=== PATIENT | female | born 1940 | race Caucasian/White ===

== ENCOUNTER 2019-04-06 00:15 | Day surgery (SDC) | payer MEDICARE, SELFPAY ==
[2019-03-20 10:42] VITALS: BMI 28.8
--- NOTE | 2019-04-06 07:23 | WPDHPUPDATE1 ---
History and Physical Update Update Date/Time: 04/06/19 07:23 History and Physical has been reviewed, including an updated exam of the patient. There are NO changes in the patient's condition. Risks, benefits, and alternatives have been discussed and questions answered. Patient agrees to proceed with procedure.
[2019-04-06 07:51] VITALS: BP 161/93; PULSE 91; RESP 20; TEMP 36.8; O2SAT 98
[2019-04-06] MEDS: LACTATED RINGERS 1,000 ML 30 ML IV CONT (08:05)
--- NOTE | 2019-04-06 08:28 | WPDANESEPPF ---
Anes - Initial Pre Proc Eval Procedure: Operation Date: 04/06/19 07:30 Proposed Procedures p Cystoscopy Bladder Biopsy With Steroid Injection - John Delarosa MD Date/Time: 04/06/19 08:28 Surgeon: John Delarosa MD Pre Op Diagnosis: Hunner's Ulcer Patient Data Age: 78 Gender: F Height: 1.63 m Weight: 76.2 kg Allergies Allergy/AdvReac Type Severity Reaction Status Date / Time sulfamethoxazole Allergy Unknown HIVES Verified 03/20/19 10:36 trimethoprim Allergy Unknown HIVES Verified 03/20/19 10:36 Home Medications Medication Instructions Recorded Confirmed Type Lactobacillus acidophilus 2,000 mmu cells PO BID 03/20/19 03/20/19 History amlodipine 5 mg PO DAILY 03/20/19 03/20/19 History apixaban [Eliquis] 5 mg PO DAILY 03/20/19 03/20/19 History bisoprolol-hydrochlorothiazide 1 tablet PO DAILY 03/20/19 03/20/19 History cholecalciferol (vitamin D3) 50 mcg PO DAILY 03/20/19 03/20/19 History [Vitamin D3] fluticasone propionate [Flonase 1 spray INTRANASAL DAILY 03/20/19 03/20/19 History Allergy Relief] hydrochlorothiazide 12.5 mg PO DAILY 03/20/19 03/20/19 History hydrocortisone 20 mg PO DAILY 03/20/19 03/20/19 History omega-3 fatty acids 1,000 mg PO DAILY 03/20/19 03/20/19 History omeprazole 40 mg PO DAILY 03/20/19 03/20/19 History simvastatin 20 mg PO DAILY 03/20/19 03/20/19 History Patient hx anesthesia problems: none Family hx anesthesia problems: none PMFSH Past Medical History Medical History (Updated 04/06/19 @ 08:28 by Que Bryant DO) Adrenal insufficiency Anticoagulant long-term use Chronic steroid use GERD (gastroesophageal reflux disease) History of lung cancer Hyperlipidemia Hypertension ARDEN (obstructive sleep apnea) Pulmonary embolism Surgical History Surgical History (Updated 04/05/19 @ 08:10 by Que Bryant DO) History of lobectomy of lung right middle lobe Social History Social History Gender identity (if verbalized by the patient): Female Anes - Eval Final PreProcedure Day of Procedure 04/06/19 08:28 Patient weight: overweight Heart: regular rate and rhythm Lungs: clear to auscultation and normal air movement Airway: Mallampati scale class II Neurological: alert and oriented Last oral intake: >/= 8 hours ASA classification: III Emergent: no Anesthetic plan: proceed Anesthesia type and monitoring: general GIVS and standard monitoring Informed Consent: The patient's anesthetic plan and its attendant risks and benefits were discussed with the patient/family/POA. Questions were solicited and answers provided to the satisfaction of the patient/family/POA.
[2019-04-06] MEDS: ceFAZolin 2 GM/D5W 50 ML 2 GM/50 ML BAG IVPB (08:40)
[2019-04-06] MEDS: LIDOCAINE HCL 2% GEL UROJET 10 ML PKG MUCOUS MEM (08:56)
[2019-04-06] MEDS: TRIAMCINOLONE ACET INJ 40 MG/ML VIAL 200 MG IM (08:58)
--- NOTE | 2019-04-06 09:02 | P.OP_ITS ---
Procedure Note - Detailed Date of procedure: 04/06/19 Pre-op diagnosis: Hunner's Ulcer Hunner's ulcer Post-op diagnosis: same Procedure performed: Cystoscopy with bladder biopsy and injection of steroid Description of procedure: After anesthesia was induced the patient was correctly identified and informed consent was obtained. They are placed in the dorsal lithotomy position. There prepped and draped in a sterile fashion. A time-out performed. I performed cystoscopy. There were areas of Hunner's ulceration inside the bladder. There was some areas of dystrophic calcification on the ulcer. I removed these and washed them out of the bladder. This was biopsied in generously fulgurated. I then injected Kenalog at a dose of 40 milligrams/mL. I injected 5 cc total. There was minimal bleeding from the in jection sites. The bladder was examined under low insufflation pressures and there was no active bleeding. The bladder was drained. The awakened and transferred to the PACU in stable condition. Implants: None Anesthesia: MAC Surgeon: John Delarosa MD Drains: No Packing: No Pathology: yes (Bladder biopsy) Complications: No immediate complications Condition: stable Disposition: PACU
[2019-04-06 09:06] VITALS: BP 155/91; PULSE 77; O2SAT 100
[2019-04-06 09:30] VITALS: BP 160/84; PULSE 76
[2019-04-06 10:00] VITALS: BP 160/86; PULSE 72
== END 2019-04-06 10:27 | disposition home or self-care (01) ==
PROVIDERS: Visit Provider Urology
PROC: 0TBB8ZX Excision of Bladder, Via Natural or Artificial Opening Endoscopic, Diagnostic (ICD-10-PCS; CPT 52204; principal; 2019-04-06 07:30)
DX: N30.10 Interstitial cystitis (chronic) without hematuria (principal); I10 Essential (primary) hypertension; E78.5 Hyperlipidemia, unspecified; E27.40 Unspecified adrenocortical insufficiency; G47.33 Obstructive sleep apnea (adult) (pediatric); Z79.01 Long term (current) use of anticoagulants; Z79.52 Long term (current) use of systemic steroids; Z85.118 Personal history of other malignant neoplasm of bronchus and lung; Z86.711 Personal history of pulmonary embolism; Z90.2 Acquired absence of lung [part of]
CPT/HCPCS: 52283; 52204; 88305; A9270; J0690; J2704; J3301; J7120

== ENCOUNTER 2019-09-21 00:13 | Outpatient (CLI) | payer MEDICARE, SELFPAY ==
[2019-09-21 20:43] LABS: SARS-CoV-2 RNA PCR Negative
== END 2019-09-21 00:14 | disposition home or self-care (01) ==
LOC: ANHCOVIDDT 00:13
PROVIDERS: PCP Family Medicine; Visit Provider Urology
DX: Z01.812 Encounter for preprocedural laboratory examination (principal); Z11.59 Encounter for screening for other viral diseases
CPT/HCPCS: 87635; C9803; U0003

== ENCOUNTER 2019-09-24 01:03 | Day surgery (SDC) | payer MEDICARE, SELFPAY ==
[2019-09-19 12:42] VITALS: BMI 29.5
[2019-09-24] VITALS (9 sets, daily range): BP systolic 114–160; BP diastolic 70–87; PULSE 69–73; RESP 12–20; TEMP 36.6–36.8; O2SAT 94–100
--- NOTE | 2019-09-24 07:30 | WPDHPUPDATE1 ---
History and Physical Update Update Date/Time: 09/24/19 07:30 History and Physical has been reviewed, including an updated exam of the patient. There are NO changes in the patient's condition. Risks, benefits, and alternatives have been discussed and questions answered. Patient agrees to proceed with procedure.
[2019-09-24] MEDS: LACTATED RINGERS 1,000 ML 30 ML IV CONT (11:37)
--- NOTE | 2019-09-24 12:02 | WPDANESEPPF ---
Anes - Initial Pre Proc Eval Procedure: Operation Date: 09/24/19 13:00 Proposed Procedures p Cystoscopy, Bladder Biopsy, Steroid Injection - John Delarosa MD Date/Time: 09/24/19 12:02 Surgeon: John Delarosa MD Pre Op Diagnosis: hunters ulcer Patient Data Age: 79 Gender: F Height: 5 ft 3 in Weight: 74.1 kg Last Vital Signs Temp 36.6 C 09/24/19 11:41 Pulse 72 09/24/19 11:41 Resp 20 09/24/19 11:41 BP 154/70 H 09/24/19 11:41 Pulse Ox 100 09/24/19 11:41 Allergies Allergy/AdvReac Type Severity Reaction Status Date / Time sulfamethoxazole Allergy Unknown HIVES Verified 09/24/19 11:50 trimethoprim Allergy Unknown HIVES Verified 09/24/19 11:50 buspirone Allergy Other Verified 09/24/19 11:50 sertraline Allergy VERTIGO Verified 09/24/19 11:50 Home Medications Medication Instructions Recorded Confirmed Type amlodipine 5 mg PO DAILY 03/20/19 09/24/19 History cholecalciferol (vitamin D3) 50 mcg PO DAILY 03/20/19 09/24/19 History [Vitamin D3] fluticasone propionate [Flonase 1 spray INTRANASAL DAILY 03/20/19 09/24/19 History Allergy Relief] hydrochlorothiazide 25 mg PO DAILY 03/20/19 09/24/19 History hydrocortisone 20 mg PO DAILY 03/20/19 09/24/19 History omeprazole 40 mg PO DAILY 03/20/19 09/24/19 History simvastatin 20 mg PO HS 03/20/19 09/24/19 History fexofenadine [Loraine Allergy] 180 mg PO DAILY 09/19/19 09/24/19 History Patient hx anesthesia problems: none Family hx anesthesia problems: none PMFSH Past Medical History Medical History Adrenal insufficiency Anticoagulant long-term use Chronic steroid use GERD (gastroesophageal reflux disease) History of lung cancer Hyperlipidemia Hypertension ARDEN (obstructive sleep apnea) Pulmonary embolism Surgical History Surgical History History of lobectomy of lung right middle lobe Social History Social History Smoking status: Never smoker Living arrangements: with family Gender identity (if verbalized by the patient): Female Spiritual care concerns: No Anes - Eval Final PreProcedure Day of Procedure 09/24/19 12:02 Patient weight: overweight Heart: regular rate and rhythm Lungs: clear to auscultation Airway: Mallampati scale class III Neurological: alert and oriented Last oral intake: >/= 8 hours ASA classification: III Emergent: no Anesthetic plan: proceed Anesthesia type and monitoring: general LMA and standard monitoring Informed Consent: The patient's anesthetic plan and its attendant risks and benefits were discussed with the patient/family/POA. Questions were solicited and answers provided to the satisfaction of the patient/family/POA.
[2019-09-24] MEDS: ceFAZolin 2 GM/D5W 50 ML 2 GM/50 ML BAG IVPB (13:11)
[2019-09-24] MEDS: LIDOCAINE HCL 2% GEL UROJET 10 ML PKG MUCOUS MEM (13:26)
[2019-09-24] MEDS: TRIAMCINOLONE ACET INJ 40 MG/ML VIAL 120 MG IM (13:30)
--- NOTE | 2019-09-24 13:32 | PM.PROC ---
Procedure Note - Detailed Date of procedure: 09/24/19 Pre-op diagnosis: hunters ulcer Hunner's ulcer Post-op diagnosis: same Procedure performed: Cystoscopy with bladder biopsy and injection of steroid Description of procedure: After anesthesia was induced the patient was correctly identified and informed consent was obtained. They are placed in the dorsal lithotomy position. There prepped and draped in a sterile fashion. A time-out performed. I performed cystoscopy. There were areas of Hunner's ulceration inside the bladder. This was biopsied in generously fulgurated. I then injected Kenalog at a dose of 40 milligrams/mL. I injected 5 cc total. There was minimal bleeding from the injection sites. The bladder was examined under low insufflation pressures and there was no active bleeding. The bladder was drained. The awakened and transferred to the PACU in stable condition. Implants: None Anesthesia: MAC Surgeon: John Delarosa MD Drains: No Packing: No Pathology: yes (Bladder biopsy) Complications: No immediate complications Condition: stable Disposition: PACU
[2019-09-24] MEDS: ACETAMINOPHEN 325 MG TABLET 650 MG PO (15:17)
== END 2019-09-24 15:35 | disposition home or self-care (01) ==
PROVIDERS: PCP Family Medicine; Visit Provider Urology
PROC: 0TBB8ZX Excision of Bladder, Via Natural or Artificial Opening Endoscopic, Diagnostic (ICD-10-PCS; CPT 52204; principal; 2019-09-24 13:00)
DX: N30.10 Interstitial cystitis (chronic) without hematuria (principal); I10 Essential (primary) hypertension; E78.5 Hyperlipidemia, unspecified; G47.33 Obstructive sleep apnea (adult) (pediatric); K21.9 Gastro-esophageal reflux disease without esophagitis; E66.3 Overweight; Z68.29 Body mass index [BMI] 29.0-29.9, adult; Z86.711 Personal history of pulmonary embolism; Z85.118 Personal history of other malignant neoplasm of bronchus and lung; Z90.2 Acquired absence of lung [part of]; Z88.2 Allergy status to sulfonamides; Z79.51 Long term (current) use of inhaled steroids; Z79.899 Other long term (current) drug therapy; Z79.01 Long term (current) use of anticoagulants; Z79.52 Long term (current) use of systemic steroids
CPT/HCPCS: 52214; 53899; 88305; A9270; J0690; J2704; J3301; J7120

== ENCOUNTER 2020-05-30 02:22 | Day surgery (SDC) | payer MEDICARE, SELFPAY ==
[2020-05-27 08:58] VITALS: BMI 27.3
--- NOTE | 2020-05-30 10:26 | WPDANESEPPF ---
Anes - Initial Pre Proc Eval Procedure: Operation Date: 05/30/20 12:15 Proposed Procedures p Cystoscopy Bladder Biopsy with Steroid Injection - John Delarosa MD Date/Time: 05/30/20 10:26 Surgeon: John Delarosa MD Pre Op Diagnosis: Bladder biopsy Patient Data Age: 79 Gender: F Height: 5 ft 3 in Weight: 70 kg Allergies Allergy/AdvReac Type Severity Reaction Status Date / Time sulfamethoxazole Allergy Unknown HIVES Verified 05/27/20 09:25 trimethoprim Allergy Unknown HIVES Verified 05/27/20 09:25 sertraline Allergy VERTIGO Verified 05/27/20 09:25 buspirone AdvReac BODY ACHES Verified 05/27/20 09:25 ciprofloxacin AdvReac BODY ACHES Verified 05/27/20 09:25 Home Medications Medication Instructions Recorded Confirmed Type amlodipine 5 mg PO QAM 03/20/19 05/27/20 History cholecalciferol (vitamin D3) 50 mcg PO DAILY 03/20/19 05/27/20 History [Vitamin D3] fluticasone propionate [Flonase 1 spray INTRANASAL DAILY 03/20/19 05/27/20 History Allergy Relief] hydrocortisone 15 mg PO DAILY 03/20/19 05/27/20 History omeprazole 40 mg PO DAILY 03/20/19 05/27/20 History simvastatin 10 mg PO HS 03/20/19 05/27/20 History fexofenadine [Loraine Allergy] 180 mg PO DAILY PRN 09/19/19 05/27/20 History tramadol 50 mg PO Q6H PRN #20 tablet 09/24/19 05/27/20 Rx ascorbic acid (vitamin C) 1 cap PO DAILY 05/27/20 05/27/20 History black cohosh root extract [Black 200 mg PO DAILY 05/27/20 05/27/20 History Cohosh Extract] hydrochlorothiazide 25 mg PO QAM 05/27/20 05/27/20 History metformin 500 mg PO QAM 05/27/20 05/27/20 History methenamine-sod ant-salicyl 1 tablet PO DAILY PRN 05/27/20 05/27/20 History [Cystex (methenamine-agustin acid)] warfarin 2.5 mg PO QPM 05/27/20 05/27/20 History Patient hx anesthesia problems: none Family hx anesthesia problems: none [facility] Past Medical History Medical History Adrenal insufficiency Anticoagulant long-term use Chronic steroid use GERD (gastroesophageal reflux disease) History of lung cancer Hyperlipidemia Hypertension ARDEN (obstructive sleep apnea) Pulmonary embolism Surgical History Surgical History History of lobectomy of lung right middle lobe Social History Social History Smoking status: Never smoker Alcohol intake: never Substance use: never Living arrangements: alone Gender identity (if verbalized by the patient): Female Spiritual care concerns: No Anes - Eval Final PreProcedure Day of Procedure 05/30/20 10:26 Patient weight: overweight Heart: regular rate and rhythm Lungs: clear to auscultation Airway: Mallampati scale class II Neurological: alert and oriented Last oral intake: >/= 8 hours Emergent: no Anesthetic plan: proceed Anesthesia type and monitoring: general GIVS and standard monitoring Informed Consent: The patient's anesthetic plan and its attendant risks and benefits were discussed with the patient/family/POA. Questions were solicited and answers provided to the satisfaction of the patient/family/POA.
--- NOTE | 2020-05-30 10:27 | P.HP_ITS ---
H&P: HPI History of Present Illness Date/Time: 05/30/20 10:27 This is a with Hunner's ulcers she is here for repeat steroid injection. His last in September of 2019 Chief Complaint: Hunner's ulcer Review of Systems 2 Review of Systems: All systems reviewed & are unremarkable except as noted in HPI and below PMFSH Past Medical History Medical History (Updated 05/30/20 @ 10:28 by John Delarosa MD) Adrenal insufficiency Anticoagulant long-term use Chronic steroid use GERD (gastroesophageal reflux disease) History of lung cancer Hyperlipidemia Hypertension ARDEN (obstructive sleep apnea) Pulmonary embolism Surgical History Surgical History History of lobectomy of lung right middle lobe Social History Social History Smoking status: Never smoker Alcohol intake: never Substance use: never Living arrangements: alone Gender identity (if verbalized by the patient): Female Spiritual care concerns: No Meds Home Medications and Allergies Home Medications Medication Instructions Recorded Confirmed Type amlodipine 5 mg PO QAM 03/20/19 05/27/20 History cholecalciferol (vitamin D3) 50 mcg PO DAILY 03/20/19 05/27/20 History [Vitamin D3] fluticasone propionate [Flonase 1 spray INTRANASAL DAILY 03/20/19 05/27/20 History Allergy Relief] hydrocortisone 15 mg PO DAILY 03/20/19 05/27/20 History omeprazole 40 mg PO DAILY 03/20/19 05/27/20 History simvastatin 10 mg PO HS 03/20/19 05/27/20 History fexofenadine [Loraine Allergy] 180 mg PO DAILY PRN 09/19/19 05/27/20 History tramadol 50 mg PO Q6H PRN #20 tablet 09/24/19 05/27/20 Rx ascorbic acid (vitamin C) 1 cap PO DAILY 05/27/20 05/27/20 History black cohosh root extract [Black 200 mg PO DAILY 05/27/20 05/27/20 History Cohosh Extract] hydrochlorothiazide 25 mg PO QAM 05/27/20 05/27/20 History metformin 500 mg PO QAM 05/27/20 05/27/20 History methenamine-sod ant-salicyl 1 tablet PO DAILY PRN 05/27/20 05/27/20 History [Cystex (methenamine-agustin acid)] warfarin 2.5 mg PO QPM 05/27/20 05/27/20 History Allergies Allergy/AdvReac Type Severity Reaction Status Date / Time sulfamethoxazole Allergy Unknown HIVES Verified 05/27/20 09:25 trimethoprim Allergy Unknown HIVES Verified 05/27/20 09:25 sertraline Allergy VERTIGO Verified 05/27/20 09:25 buspirone AdvReac BODY ACHES Verified 05/27/20 09:25 ciprofloxacin AdvReac BODY ACHES Verified 05/27/20 09:25 Exam Const: General: cooperative HENMT: Head: normal to inspection Eyes: General: appearance normal, both eyes and all related structures Neck: Neck: normal visual inspection Resp: Effort & Inspection: normal respiratory effort and able to speak in complete sentences Skin: General skin exam: normal color Neuro: General: oriented to person, oriented to place and oriented to time Assessment and Plan Assessment and plan (1) Hunner's ulcer: Code(s): N30.10 - Interstitial cystitis (chronic) without hematuria Status: Acute Assessment and Plan: Cystoscopy, bladder biopsy, steroid injection
--- NOTE | 2020-05-30 10:28 | WPDHPUPDATE1 ---
History and Physical Update Update Date/Time: 05/30/20 10:28 History and Physical has been reviewed, including an updated exam of the patient. There are NO changes in the patient's condition. Risks, benefits, and alternatives have been discussed and questions answered. Patient agrees to proceed with procedure.
[2020-05-30 10:30] VITALS: BP 153/76; PULSE 90; RESP 18; TEMP 36.3; O2SAT 100
[2020-05-30] MEDS: LACTATED RINGERS 1,000 ML 30 ML IV CONT (10:30)
[2020-05-30 11:05] LABS: Glucose Point of Care 86 (65-105)
[2020-05-30 11:12] LABS: INR 1.2; Prothrombin Time 15.8 Seconds (11.1-14.7)
[2020-05-30 11:13] LABS: Partial Thromboplastin Time 31.3 SECONDS (22.3-36.8)
[2020-05-30] MEDS: ceFAZolin 2 GM/D5W 50 ML 2 GM/50 ML BAG IVPB (11:59)
[2020-05-30] MEDS: LIDOCAINE HCL 2% GEL UROJET 10 ML PKG MUCOUS MEM (12:11)
[2020-05-30] MEDS: TRIAMCINOLONE ACET INJ 40 MG/ML VIAL 200 MG XX (12:20)
--- NOTE | 2020-05-30 12:29 | PM.PROC ---
Procedure Note - Detailed Date of procedure: 05/30/20 Pre-op diagnosis: Bladder biopsy Hunner's ulcer Post-op diagnosis: same Procedure performed: Cystoscopy with bladder biopsy and injection of steroid Description of procedure: After anesthesia was induced the patient was correctly identified and informed consent was obtained. They are placed in the dorsal lithotomy position. There prepped and draped in a sterile fashion. A time-out performed. I performed cystoscopy. There were areas of Hunner's ulceration inside the bladder. This was biopsied in generously fulgurated. I then injected Kenalog at a dose of 40 milligrams/mL. I injected 5 cc total. There was minimal bleeding from the injection sites. The bladder was examined under low insufflation pressures and there was no active bleeding. The bladder was drained. The awakened and transferred to the PACU in stable condition. Implants: None Anesthesia: MAC Surgeon: John Delarosa MD Drains: No Packing: No Pathology: yes (Bladder biopsy) Complications: No immediate complications Condition: stable Disposition: PACU
[2020-05-30 12:32] VITALS: BP 129/70; PULSE 87; RESP 16; O2SAT 100
[2020-05-30 13:00] VITALS: BP 154/71; PULSE 84; RESP 14
[2020-05-30 13:14] LABS: Glucose Point of Care 85 (65-105)
[2020-05-30 13:30] VITALS: BP 149/80; PULSE 76; RESP 14
== END 2020-05-30 13:50 | disposition home or self-care (01) ==
PROVIDERS: Anesthesiology; PCP Family Medicine; Visit Provider Urology
PROC: 0TBB8ZX Excision of Bladder, Via Natural or Artificial Opening Endoscopic, Diagnostic (ICD-10-PCS; CPT 52204; principal; 2020-05-30 12:15)
DX: N30.10 Interstitial cystitis (chronic) without hematuria (principal); E27.40 Unspecified adrenocortical insufficiency; Z79.01 Long term (current) use of anticoagulants; Z79.84 Long term (current) use of oral hypoglycemic drugs; Z86.711 Personal history of pulmonary embolism; G47.33 Obstructive sleep apnea (adult) (pediatric); K21.9 Gastro-esophageal reflux disease without esophagitis; Z85.118 Personal history of other malignant neoplasm of bronchus and lung; Z90.2 Acquired absence of lung [part of]; I10 Essential (primary) hypertension
CPT/HCPCS: 52204; 52283; 36415; 82948; 85610; 85730; 88305; A9270; J0690; J2704; J3301; J7120

== ENCOUNTER 2021-10-19 00:20 | Day surgery (SDC) | payer MEDICARE, SELFPAY ==
[2021-10-07 09:58] VITALS: BMI 30.2
--- NOTE | 2021-10-07 10:06 | PC.NURSE ---
PRE-OP INSTRUCTIONS, PLEASE READ CAREFULLY Report to the Outpatient Waiting Room, entrance under the green pavilion located off [facility], at time _1000_ on date _10/19/21_. OR Time: _1200_. BRING COVID VACCINATION CARD DAY OF SURGERY - You and your visitor will be asked to self-screen and do not enter if you have any COVID symptoms. - Only one visitor and NO children visitors are allowed at this time. - The patient visitor is requested to leave or wait in car when not with patient due to restrictions. - A mask is required within the hospital. Patients may have clear liquids (water, carbonated beverages, clear teas, apple juice) until 3 hours prior to surgery (0900 AM) with a maximum of 20 ounces. - No food from midnight until time of surgery Take the following medications with a SIP of water the morning of surgery: _AMLODIPINE, HYDROCORTISONE_ Medications to discontinue _ELIQUIS PER DR. CARRENO'S INSTRUCTIONS__ Medications to discontinue per ANESTHESIA -_VITAMINS AND SUPPLEMENTS 3 DAYS PRIOR TO SURGERY, Date to take last dose 10/15/21 Please no make-up, nail danish, hairspray, perfume, deodorant, or body powder the day of surgery. No jewelry (including any body piercings) or valuables the day of surgery, leave them at home. Please take a shower or bath the night before, or the morning of, surgery with an antibacterial soap. Wear comfortable, loose fitting clothing. - Jewelry must be removed prior to entering the operating room. Rings and piercings that are not removed may be cut off. - The hospital will not accept responsibility for valuables. - Please leave all valuables, including medications, at home the day of surgery. If you are going home after surgery, a licensed local driver must drive you home. - NO public transportation without another adult. - We recommend that an adult stay with you for 24 hours following discharge. - We also recommend that you do not drive, make important decision, drink alcoholic beverages, or take any drugs that were not prescribed by your health care provider for at least 24 hours after your discharge time. Follow any additional instructions given to you from your surgeon. If you or anyone in your household have experienced Covid symptoms in the past week, please notify your surgeon or the nurse liaison at the phone number below for possible testing. Telephone instructions given to ____PT and asked if any additional questions and then verbalized understanding. Patient advised to call surgeon office or pre surgery nurse liaison [phone] if any additional questions.
--- NOTE | 2021-10-16 08:31 | PM.IMHP ---
H&P: HPI History of Present Illness Date/Time: 10/16/21 08:31 Chief Complaint: Hunner's ulcer Narrative: Recurrent Hunner's ulcer. Presents for repeat treatment Review of Systems Review of Systems: All systems reviewed & are unremarkable except as noted in HPI and below PMFSH Past Medical History Medical History Adrenal insufficiency Anticoagulant long-term use Chronic steroid use GERD (gastroesophageal reflux disease) History of lung cancer Hyperlipidemia Hypertension ARDEN (obstructive sleep apnea) Pulmonary embolism Surgical History Surgical History History of lobectomy of lung right middle lobe Social History Social History Smoking status: Never smoker Second hand tobacco smoke exposure: No Alcohol intake: never Substance use: never Substance use type: does not use Living arrangements: alone Gender identity (if verbalized by the patient): Female Spiritual care concerns: No Meds Home Medications and Allergies Home Medications Medication Instructions Recorded Confirmed Type amlodipine 5 mg tablet 5 mg PO QAM 03/20/19 10/07/21 History cholecalciferol (vitamin D3) 50 50 mcg PO DAILY 03/20/19 10/07/21 History mcg (2,000 unit) capsule (Vitamin D3) fluticasone propionate 50 1 spray intranasal DAILY 03/20/19 10/07/21 History mcg/actuation nasal spray,suspension (Flonase Allergy Relief) hydrocortisone 10 mg tablet 15 mg PO DAILY 03/20/19 10/07/21 History omeprazole 40 mg capsule,delayed 40 mg PO DAILY 03/20/19 10/07/21 History release simvastatin 20 mg tablet 10 mg PO HS 03/20/19 10/07/21 History fexofenadine 180 mg tablet 180 mg PO DAILY PRN Congestion 09/19/19 10/07/21 History (Loraine Allergy) tramadol 50 mg tablet 50 mg PO Q6H PRN pain #20 tabs 09/24/19 10/07/21 Rx ascorbic acid (vitamin C) 1,000 mg 1 cap PO DAILY 05/27/20 10/07/21 History capsule,extended release black cohosh root extract 200 mg 200 mg PO DAILY 05/27/20 10/07/21 History capsule hydrochlorothiazide 25 mg tablet 25 mg PO QAM 05/27/20 10/07/21 History metformin 500 mg tablet 500 mg PO QAM 05/27/20 10/07/21 History methenamine-sod ant-salicyl 162 1 tablet PO DAILY PRN Bladder 05/27/20 10/07/21 History mg-97 mg-65 mg tablet Spasms amoxicillin 500 mg-potassium 1 tablet PO Q12H 10/07/21 10/07/21 History clavulanate 125 mg tablet (Augmentin) apixaban 2.5 mg tablet (Eliquis) 2.5 mg PO QAM 10/07/21 10/07/21 History lisinopril 10 mg tablet 10 mg QAM 10/07/21 10/07/21 History Allergies Allergy/AdvReac Type Severity Reaction Status Date / Time sulfamethoxazole Allergy Unknown HIVES Verified 05/30/20 11:10 trimethoprim Allergy Unknown HIVES Verified 05/30/20 11:10 sertraline Allergy VERTIGO Verified 05/30/20 11:10 buspirone AdvReac BODY ACHES Verified 05/30/20 11:10 ciprofloxacin AdvReac BODY ACHES Verified 05/30/20 11:10 Exam Narrative: No acute distress Normal breathing Alert and oriented x3 Assessment and Plan Assessment and plan (1) Hunner's ulcer: Code(s): N30.10 - Interstitial cystitis (chronic) without hematuria Status: Acute Assessment and Plan: Cystoscopy, bladder biopsy, steroid injection. Understands risks of bleeding, infection, damage to the bladder urethra, lack of efficacy, need for repeat procedures. She agrees to proceed
--- NOTE | 2021-10-19 07:15 | WPDHPUPDATE1 ---
History and Physical Update Update Date/Time: 10/19/21 07:15 History and Physical has been reviewed, including an updated exam of the patient. There are NO changes in the patient's condition. Risks, benefits, and alternatives have been discussed and questions answered. Patient agrees to proceed with procedure.
[2021-10-19 12:23] LABS: Appearance Urine Slightly Cloudy (Clear); Bilirubin Urine Negative (Negative); Color Urine Yellow (Yellow); Glucose Urine UA Negative (Negative); Ketones Urine Negative (Negative); Leukocyte Esterase Ur 1+ LEU/UL (Negative); Nitrate Urine Negative (Negative); Protein Urine 1+ mg/dL (Negative); Specific Grav Ur 1.025 (1.001-1.035); Urobilinogen Urine 0.2 mg/dL (<2.0)
[2021-10-19 12:25] LABS: Add Urine Microscopic? YES; Blood Urine Trace-Intact (Negative)
[2021-10-19 12:26] LABS: Bacteria Urine Trace /hpf; Mucus Urine Rare /lpf; Squamous Epithelial Cell Urine Many /hpf (Few); WBC Urine 31-50 /hpf
[2021-10-19 12:32] VITALS: BP 173/80; PULSE 88; RESP 18; TEMP 36.1; O2SAT 96
[2021-10-19] MEDS: LACTATED RINGERS 1,000 ML 30 ML IV CONT (12:35)
--- NOTE | 2021-10-19 13:11 | WPDANESEPPF ---
Anes - Initial Pre Proc Eval Procedure: Operation Date: 10/19/21 12:00 Proposed Procedures p Cystoscopy, Bladder Biopsy, Steroid Injection - John Delarosa MD Date/Time: 10/19/21 13:11 Surgeon: John Delarosa MD Pre Op Diagnosis: hunners ulcer Patient Data Age: 81 Gender: F Height: 1.6 m Weight: 74.3 kg Last Vital Signs Temp 36.1 C L 10/19/21 12:32 Pulse 88 10/19/21 12:32 Resp 18 10/19/21 12:32 BP 173/80 H 10/19/21 12:32 Pulse Ox 96 10/19/21 12:32 O2 Del Method Room Air 10/19/21 12:32 Allergies Allergy/AdvReac Type Severity Reaction Status Date / Time sulfamethoxazole Allergy Unknown HIVES Verified 10/19/21 12:50 trimethoprim Allergy Unknown HIVES Verified 10/19/21 12:50 sertraline Allergy VERTIGO Verified 10/19/21 12:50 buspirone AdvReac BODY ACHES Verified 10/19/21 12:50 ciprofloxacin AdvReac BODY ACHES Verified 10/19/21 12:50 Home Medications Medication Instructions Recorded Confirmed Type amlodipine 5 mg tablet 10 mg PO QAM 03/20/19 10/19/21 History cholecalciferol (vitamin D3) 50 50 mcg PO DAILY 03/20/19 10/07/21 History mcg (2,000 unit) capsule (Vitamin D3) fluticasone propionate 50 1 spray intranasal DAILY 03/20/19 10/07/21 History mcg/actuation nasal spray,suspension (Flonase Allergy Relief) hydrocortisone 10 mg tablet 15 mg PO DAILY 03/20/19 10/07/21 History omeprazole 40 mg capsule,delayed 40 mg PO DAILY 03/20/19 10/07/21 History release simvastatin 20 mg tablet 10 mg PO HS 03/20/19 10/07/21 History fexofenadine 180 mg tablet 180 mg PO DAILY PRN Congestion 09/19/19 10/07/21 History (Loraine Allergy) tramadol 50 mg tablet 50 mg PO Q6H PRN pain #20 tabs 09/24/19 10/07/21 Rx ascorbic acid (vitamin C) 1,000 mg 1 cap PO DAILY 05/27/20 10/07/21 History capsule,extended release black cohosh root extract 200 mg 200 mg PO DAILY 05/27/20 10/07/21 History capsule hydrochlorothiazide 25 mg tablet 25 mg PO QAM 05/27/20 10/07/21 History metformin 500 mg tablet 500 mg PO QAM 05/27/20 10/07/21 History methenamine-sod ant-salicyl 162 1 tablet PO DAILY PRN Bladder 05/27/20 10/07/21 History mg-97 mg-65 mg tablet Spasms amoxicillin 500 mg-potassium 1 tablet PO Q12H 10/07/21 10/07/21 History clavulanate 125 mg tablet (Augmentin) apixaban 2.5 mg tablet (Eliquis) 2.5 mg PO QAM 10/07/21 10/07/21 History lisinopril 10 mg tablet 10 mg QAM 10/07/21 10/07/21 History Laboratory Tests 10/19/21 12:06 Urine Color Yellow (Yellow) Urine Appearance Slightly cloudy (Clear) Urine pH 6.0 (5.0-9.0) Ur Specific [place] 1.025 (1.001-1.035) Urine Protein 1+ mg/dL H mg/dL (Negative) Urine Glucose (UA) Negative mg/dL mg/dL (Negative) Urine Ketones Negative mg/dL mg/dL (Negative) Ur Blood (Man) Trace-intact (Negative) Urine Nitrate Negative (Negative) Urine Bilirubin Negative (Negative) Urine Urobilinogen 0.2 mg/dL mg/dL (<2.0) Leukocyte Esterase Rfl 1+ FELICIA/UL H FELICIA/UL (Negative) Urine RBC 11-20 /hpf H /hpf (0-2) Urine WBC 31-50 /hpf H /hpf Ur Squamous Epith Cells Many /hpf H /hpf (Few) Urine Bacteria Trace /hpf /hpf Urine Mucus Rare /lpf /lpf Patient hx anesthesia problems: other (slow to awaken) Family hx anesthesia problems: none Results Review: All pre-operative results and documents have been reviewed as part of the pre-operative evaluation. [facility] Past Medical History Medical History Adrenal insufficiency Anticoagulant long-term use Chronic steroid use GERD (gastroesophageal reflux disease) History of lung cancer Hyperlipidemia Hypertension ARDEN (obstructive sleep apnea) Pulmonary embolism Surgical History Surgical History History of lobectomy of lung right middle lobe Social History Social History (Review
[2021-10-19 13:16] LABS: Glucose Point of Care 95 mg/dl (65-105)
[2021-10-19] MEDS: ceFAZolin 2 GM/D5W 50 ML 2 GM/50 ML BAG IVPB (13:52)
[2021-10-19] MEDS: LIDOCAINE HCL 2% GEL UROJET 10 ML PKG MUCOUS MEM (14:07)
[2021-10-19] MEDS: TRIAMCINOLONE ACET INJ 40 MG/ML VIAL 200 MG XX (14:08)
--- NOTE | 2021-10-19 14:12 | P.OP_ITS ---
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 Here for repeat treatment. Findings Three areas of Hunner's ulceration mostly on the left side of the bladder Description of Procedure She has correctly identified. Informed consent obtained. She was brought to the operating room. She was given MAC anesthesia. Placed in the dorsal thigh position. She was prepped and draped sterile fashion. Given appropriate perioperative antibiotics. A time-out performed. Cystoscopy revealed a small capacity bladder. She had 3 areas of Hunner's ulceration on the left lateral wall of her bladder. They remote from the ureter. I biopsied the main area. I fulgurated all lesions. I then injected Kenalog into all areas. 200 mg total. 40 mg per mail. I applied some cautery to the injection site that was bleeding. I examined the bladder under low insufflation pressures. No active bleeding. She was awakened and transferred to PACU in stable condition. Estimated Blood Loss 1 Drains No Packing No Pathology Yes (Bladder biopsy) Complications No immediate complications Condition Stable Disposition PACU
[2021-10-19 14:15] VITALS: BP 163/68; PULSE 82; RESP 16; O2SAT 93
[2021-10-19 14:45] VITALS: BP 185/81; PULSE 81; RESP 16; O2SAT 95
[2021-10-19 15:15] VITALS: BP 178/71; PULSE 79; RESP 16
[2021-10-19 15:19] LABS: Glucose Point of Care 129 mg/dl (65-105)
== END 2021-10-19 15:25 | disposition home or self-care (01) ==
PROVIDERS: Visit Provider Urology
PROC: 0TBB8ZX Excision of Bladder, Via Natural or Artificial Opening Endoscopic, Diagnostic (ICD-10-PCS; CPT 52204; principal; 2021-10-19 12:00)
DX: N30.10 Interstitial cystitis (chronic) without hematuria (principal); Z79.01 Long term (current) use of anticoagulants; Z79.84 Long term (current) use of oral hypoglycemic drugs; I10 Essential (primary) hypertension; G47.33 Obstructive sleep apnea (adult) (pediatric); Z86.711 Personal history of pulmonary embolism; Z85.118 Personal history of other malignant neoplasm of bronchus and lung; E27.40 Unspecified adrenocortical insufficiency
CPT/HCPCS: 52204; 52283; 81001; 82948; 87086; 87088; 88305; A9270; J0690; J2704; J3010; J3301; J7120

== ENCOUNTER 2022-01-10 10:49 | Emergency (ER) | payer MEDICARE, SELFPAY ==
--- NOTE | ~2022-01-10 | CT_ITS ---
EXAMINATION: CT abdomen pelvis w con DATE: 01/10/2022 14:10 INDICATION: Abdominal pain and leukocytosis TECHNIQUE: Computed tomography (CT) of the abdomen and pelvis was performed with 100 mL Omnipaque-350 intravenous contrast. Automated exposure control and iterative reconstruction technique were employe d. The dose-length product was 655.39 mGy-cm. COMPARISON: None FINDINGS: Respiratory motion and dependent predominant atelectasis in the bilateral lower lungs. Cardiomegaly. Atherosclerotic coronary artery calcification. Mitral valve calcific location. No pericardial or pleu ral effusion. Thoracic aorta is normal in caliber with no dissection. 6 mm low-attenuation cyst in th e left hepatic lobe and 1.9 cm low-attenuation cyst in the spleen. Small calcifications along the ant erior margin of the head of the pancreas, unclear whether dystrophic calcifications related to chroni c pancreatitis or atherosclerotic calcifications. Gallbladder, bilateral adrenal glands are normal. S ubcentimeter bilateral low-attenuation renal cysts. A couple small regions of cortical atrophy at the right kidney likely sequela of prior infection or infarction. Marked colonic diverticulosis with sig moid predominance. No associated inflammatory stranding to suggest diverticulitis. Small bowel and ap pendix are normal. Bladder, anteverted uterus and bilateral adnexa are normal. No free intraperitonea l gas or fluid. No pathologically enlarged abdominal or pelvic lymphadenopathy. Tiny fat-containing u mbilical hernia. Mild scattered degenerative skeletal changes. IMPRESSION: 1. No acute intra-abdominal/pelvic process. 2. Extensive diverticulosis. 3. Cardiomegaly. Reviewed, dictated and finalized at location A. TRANSPLANT
[2022-01-10 10:52] VITALS: BP 144/84; PULSE 102; RESP 18; TEMP 37.1; O2SAT 94
[2022-01-10 11:35] LABS: Add Urine Microscopic? NO; Appearance Urine Clear (Clear); Bilirubin Urine Negative (Negative); Blood Urine Negative (Negative); Color Urine Yellow (Yellow); Glucose Urine UA Negative (Negative); Ketones Urine Negative (Negative); Leukocyte Esterase Ur Negative LEU/UL (Negative); Nitrate Urine Negative (Negative); Protein Urine Negative (Negative); Specific Grav Ur 1.015 (1.001-1.035); Urobilinogen Urine 0.2 mg/dL (<2.0)
--- NOTE | 2022-01-10 12:14 | ED.FEMALEGU ---
HPI - Female Genitourinary General Chief complaint: Urogenital-Female Stated complaint: cystitis - currently being tx for UTI Time Seen by Provider: 01/10/22 11:14 Source: patient Mode of arrival: ambulatory Limitations: no limitations History of Present Illness HPI Narrative: This is an 81-year-old female that presents to the emergency department for ongoing dysuria. Does report history of interstitial cystitis for which she sees Dr. Delarosa. Reports she was started on Keflex for a UTI 5 days ago. Reports she has had continued dysuria and abdominal discomfort. Also reports she has had body aches, diarrhea and sore throat. Denies fever, nausea, or vomiting. Related Data Home Medications Medication Instructions Recorded Confirmed amlodipine 5 mg tablet 10 mg PO QAM 03/20/19 10/19/21 cholecalciferol (vitamin D3) 50 50 mcg PO DAILY 03/20/19 10/07/21 mcg (2,000 unit) capsule (Vitamin D3) fluticasone propionate 50 1 spray intranasal DAILY 03/20/19 10/07/21 mcg/actuation nasal spray,suspension (Flonase Allergy Relief) hydrocortisone 10 mg tablet 15 mg PO DAILY 03/20/19 10/07/21 omeprazole 40 mg capsule,delayed 40 mg PO DAILY 03/20/19 10/07/21 release simvastatin 20 mg tablet 10 mg PO HS 03/20/19 10/07/21 fexofenadine 180 mg tablet 180 mg PO DAILY PRN Congestion 09/19/19 10/07/21 (Loraine Allergy) ascorbic acid (vitamin C) 1,000 mg 1 cap PO DAILY 05/27/20 10/07/21 capsule,extended release black cohosh root extract 200 mg 200 mg PO DAILY 05/27/20 10/07/21 capsule hydrochlorothiazide 25 mg tablet 25 mg PO QAM 05/27/20 10/07/21 metformin 500 mg tablet 500 mg PO QAM 05/27/20 10/07/21 methenamine-sod ant-salicyl 162 1 tablet PO DAILY PRN Bladder 05/27/20 10/07/21 mg-97 mg-65 mg tablet Spasms amoxicillin 500 mg-potassium 1 tablet PO Q12H 10/07/21 10/07/21 clavulanate 125 mg tablet (Augmentin) apixaban 2.5 mg tablet (Eliquis) 2.5 mg PO QAM 10/07/21 10/07/21 lisinopril 10 mg tablet 10 mg QAM 10/07/21 10/07/21 Allergies Allergy/AdvReac Type Severity Reaction Status Date / Time sulfamethoxazole Allergy Unknown HIVES Verified 01/10/22 10:50 trimethoprim Allergy Unknown HIVES Verified 01/10/22 10:50 sertraline Allergy VERTIGO Verified 01/10/22 10:50 buspirone AdvReac BODY ACHES Verified 01/10/22 10:50 ciprofloxacin AdvReac BODY ACHES Verified 01/10/22 10:50 Review of Systems Review of Systems: CONSTITUTIONAL: Denies fever ENT: Reports sore throat CARDIOVASCULAR: Denies chest pain RESPIRATORY: Denies cough GASTROINTESTINAL: Reports and diarrhea. Denies nausea and vomiting. GENITOURINARY: Reports dysuria. Denies hematuria. MUSCULOSKELETAL: Reports myalgia. All systems reviewed & are unremarkable except as noted in HPI and below PMFSH Past Medical History Medical History (Updated 01/10/22 @ 15:32 by Danielle Marin PA-C) Adrenal insufficiency Anticoagulant long-term use Chronic steroid use GERD (gastroesophageal reflux disease) History of lung cancer Hyperlipidemia Hypertension ARDEN (obstructive sleep apnea) Pulmonary embolism Surgical History Surgical History History of lobectomy of lung right middle lobe Social History Social History Smoking status: Never smoker Second hand tobacco smoke exposure: No Alcohol intake: never Substance use: never Substance use type: does not use Gender identity (if verbalized by the patient): Female Spiritual care concerns: No Exam Narrative: GENERAL: Well-appearing, well-nourished, and in no acute distress. HEAD: Normocephalic, atraumatic. EYES: EOMI. ENT: Nares clear, no rhinorrhea or epistaxis. Mucous membranes moist. Oropharynx with with symmetric tonsillar hypertrophy, no exudate or other lesions. NECK: Supple. No adenopathy or masses. CHEST: Clear to auscultation. No respiratory distress. No wheezes rales or rh
[2022-01-10 12:20] LABS: Basophils Absolute Auto 0.1 K/mm3 (0.0-0.1); Basophils Percent Auto 0.4 % (0.2-1.2); Eosinophils Percent Auto 0.2 % (0-4.4); Hematocrit 40.7 % (37.0-47.0); Hemoglobin 13.7 g/dL (12.0-15.0); Immature Granulocyte Absolute 0.07 K/mm3 (0.00-0.031); Immature Granulocyte Percent A 0.4 % (0-0.5); Lymphocytes Absolute Auto 4.69 K/mm3 (0.9-3.2); Mean Corpuscular HGB Conc 33.7 g/dl (32-36); Mean Corpuscular Hemoglobin 28.9 pg (26-34); Mean Corpuscular Volume 85.9 fl (80-100); Mean Platelet Volume 9.1 fl (7.4-10.4); Monocytes Absolute Auto 1.5 K/mm3 (0.1-0.6); Neutrophils Absolute Auto 9.8 K/mm3 (1.3-6.7); Platelet Count Result 266 k/mm3 (150-375); Red Blood Count 4.74 M/mm3 (4.2-5.4); Red Cell Distribution Width 15.3 % (11.5-14.5); White Blood Count 16.2 K/mm3 (4.5-10.0)
[2022-01-10 12:29] LABS: Anion Gap 9 mmol/L (8-16); Blood Urea Nitrogen 19 mg/dL (7-17); Calcium 9.4 mg/dL (8.4-10.2); Carbon Dioxide 26 mmol/L (22-30); Chloride 101 mmol/L (98-107); Estimated CRCL calculation 73 ml/min; Estimated Glomerular Filt Rate > 60; Glucose 71 mg/dL (65-110); Potassium 3.6 mmol/L (3.4-5.0); Sodium 136 mmol/L (137-145)
[2022-01-10 12:39] LABS: Alanine Aminotransferase 19 U/L (6-35); Albumin Level 4.2 g/dL (3.5-5.1); Alkaline Phosphatase 60 U/L (38-126); Aspartate Amino Transferase 25 U/L (14-36); Bilirubin,Total 0.4 mg/dL (0.2-1.3); Lipase 169 U/L (23-300)
[2022-01-10 13:01] LABS: Influenza A QL RT-PCR Negative (Negative); Influenza B QL RT-PCR Negative (Negative); RSV RNA, RT-PCR Negative (Negative); SARS-CoV-2 RNA PCR Negative
[2022-01-10 13:18] VITALS: TEMP 37.1
[2022-01-10 15:00] VITALS: BP 146/81; PULSE 91; RESP 18; O2SAT 99
[2022-01-10 15:48] VITALS: RESP 18
== END 2022-01-10 15:48 | disposition home or self-care (01) ==
PROVIDERS: Physician Assistant; Emergency Provider Emergency Medicine; PCP Urology
DX: N30.10 Interstitial cystitis (chronic) without hematuria (principal); J02.0 Streptococcal pharyngitis; R10.84 Generalized abdominal pain; Z20.822 Contact with and (suspected) exposure to COVID-19; E27.40 Unspecified adrenocortical insufficiency; E78.5 Hyperlipidemia, unspecified; K21.9 Gastro-esophageal reflux disease without esophagitis; Z85.118 Personal history of other malignant neoplasm of bronchus and lung; I10 Essential (primary) hypertension; Z86.711 Personal history of pulmonary embolism; Z79.84 Long term (current) use of oral hypoglycemic drugs; Z79.01 Long term (current) use of anticoagulants; I51.7 Cardiomegaly; K57.90 Diverticulosis of intestine, part unspecified, without perforation or abscess without bleeding
CPT/HCPCS: 36415; 74177; 80048; 80076; 81003; 83690; 85025; 87637; 87880; 96374; 99284; J0131; Q9967

== ENCOUNTER 2022-01-24 14:22 | Emergency (ER) | payer MEDICARE, SELFPAY ==
[2022-01-24 14:25] VITALS: BP 148/71; PULSE 95; RESP 16; TEMP 36.6; O2SAT 95
--- NOTE | 2022-01-24 14:39 | ED.FEMALEGU ---
HPI - Female Genitourinary General Chief complaint: Unspecified Stated complaint: vag bleeding x 2 days Time Seen by Provider: 01/24/22 14:37 Source: patient and family Mode of arrival: ambulatory Limitations: no limitations History of Present Illness HPI Narrative: 81 years old white female, history of interstitial cystitis with lot of surgical intervention, complaining of lower abdominal pain and would like to get pain medication. Patient called her urologist office Dr. Delarosa and was told to come to the emergency room. Patient also had vaginal spotting for the last 2 to 3 days, went to [facility] at 5:00 this morning and was discharged home 2 hours ago. Did not receive any pain medication in that hospital, then called her urologist who told her to come to us. Patient have extensive blood work-up and CT scan of the abdomen and pelvis at [facility] today. I was able to evaluate the blood work-up which showed CMP within normal limits, hemoglobin 13.3, platelet 245, hematocrit 38.6. Urine analysis showed no acute abnormalities CAT scan of the abdomen and pelvis without contrast showed Patient also had CT lumbar spine without contrast which showed no acute abnormality of the lumbar spine, mild to moderate degenerative change of the lumbar spine, moderate to severe neural foraminal stenosis on the left at L5-S1. Basically patient came to us today because of Dr. Delarosa office referral and to get pain medicine. Patient is telling me that she ran out of her pain medication Related Data Home Medications Medication Instructions Recorded Confirmed amlodipine 5 mg tablet 10 mg PO QAM 03/20/19 10/19/21 cholecalciferol (vitamin D3) 50 50 mcg PO DAILY 03/20/19 10/07/21 mcg (2,000 unit) capsule (Vitamin D3) fluticasone propionate 50 1 spray intranasal DAILY 03/20/19 10/07/21 mcg/actuation nasal spray,suspension (Flonase Allergy Relief) hydrocortisone 10 mg tablet 15 mg PO DAILY 03/20/19 10/07/21 omeprazole 40 mg capsule,delayed 40 mg PO DAILY 03/20/19 10/07/21 release simvastatin 20 mg tablet 10 mg PO HS 03/20/19 10/07/21 fexofenadine 180 mg tablet 180 mg PO DAILY PRN Congestion 09/19/19 10/07/21 (Loraine Allergy) ascorbic acid (vitamin C) 1,000 mg 1 cap PO DAILY 05/27/20 10/07/21 capsule,extended release black cohosh root extract 200 mg 200 mg PO DAILY 05/27/20 10/07/21 capsule hydrochlorothiazide 25 mg tablet 25 mg PO QAM 05/27/20 10/07/21 metformin 500 mg tablet 500 mg PO QAM 05/27/20 10/07/21 methenamine-sod ant-salicyl 162 1 tablet PO DAILY PRN Bladder 05/27/20 10/07/21 mg-97 mg-65 mg tablet Spasms amoxicillin 500 mg-potassium 1 tablet PO Q12H 10/07/21 10/07/21 clavulanate 125 mg tablet (Augmentin) apixaban 2.5 mg tablet (Eliquis) 2.5 mg PO QAM 10/07/21 10/07/21 lisinopril 10 mg tablet 10 mg QAM 10/07/21 10/07/21 Allergies Allergy/AdvReac Type Severity Reaction Status Date / Time sulfamethoxazole Allergy Unknown HIVES Verified 01/10/22 10:50 trimethoprim Allergy Unknown HIVES Verified 01/10/22 10:50 sertraline Allergy VERTIGO Verified 01/10/22 10:50 buspirone AdvReac BODY ACHES Verified 01/10/22 10:50 ciprofloxacin AdvReac BODY ACHES Verified 01/10/22 10:50 Review of Systems Review of Systems: All systems reviewed & are unremarkable except as noted in HPI and below PMFSH Past Medical History Medical History (Updated 01/24/22 @ 15:23 by Kristen Galvin MD) Adrenal insufficiency Anticoagulant long-term use Chronic steroid use GERD (gastroesophageal reflux disease) History of lung cancer Hyperlipidemia Hypertension ARDEN (obstructive sleep apnea) Pulmonary embolism Surgical History Surgical History History of lobectomy of lung right middle lobe Social History Social History Smoking status: Never smoker Second hand tobacco smoke exposure: No Alcohol intak
[2022-01-24] MEDS: ONDANSETRON HCL ODT 4 MG TABLET PO (15:13)
[2022-01-24] MEDS: HYDROmorphone HCL INJ (*CRX) 1 MG/ML SYR IM (15:13)
== END 2022-01-24 15:38 | disposition home or self-care (01) ==
PROVIDERS: Emergency Provider Emergency Medicine; PCP Urology
DX: N30.10 Interstitial cystitis (chronic) without hematuria (principal); E27.40 Unspecified adrenocortical insufficiency; E78.5 Hyperlipidemia, unspecified; I10 Essential (primary) hypertension; G47.33 Obstructive sleep apnea (adult) (pediatric); K21.9 Gastro-esophageal reflux disease without esophagitis; Z90.2 Acquired absence of lung [part of]; Z85.118 Personal history of other malignant neoplasm of bronchus and lung; Z86.711 Personal history of pulmonary embolism; Z79.01 Long term (current) use of anticoagulants; Z79.84 Long term (current) use of oral hypoglycemic drugs
CPT/HCPCS: 96372; 99283; A9270; J1170

== ENCOUNTER 2022-03-10 08:35 | Emergency (ER) | payer MEDICARE, SELFPAY ==
[2022-03-10] VITALS (18 sets, daily range): BP systolic 156–183; BP diastolic 82–98; PULSE 90; RESP 16; TEMP 37.1; O2SAT 85–100
--- NOTE | ~2022-03-10 | CT_ITS ---
Non-contrast CT scan of the Abdomen and Pelvis Clinical indication: Flank pain Technique: 5 mm axial scans were obtained through the abdomen and pelvis without intravenous or oral contrast. Dose reduction technique was used on this scan by utilizing automated exposure control and iterative reconstruction technique. The dose-length product (DLP) was 237.45 mGy-cm. COMPARISON: 01/10/2022 Findings: Images through the lung bases reveal mild bibasilar atelectatic change or possibly minimal pulmonary edema. Punctate nonobstructing left renal stones noted. No ureteral stone or hydronephrosis on either side. The liver, spleen, pancreas, and adrenals appear normal. Tiny gallstones noted. There is no aortic an eurysm. There is no evidence of bowel obstruction. Images through the pelvis were performed. There is no evidence of ascites or lymphadenopathy. Urinary bladder unremarkable. No pelvic mass evident. No ascites. Impression: Punctate nonobstructing left renal stones. Minimal bibasilar atelectasis versus minimal pulmonary edema. Cholelithiasis. Reviewed, dictated and finalized at [facility]. N UNLOADER Impression: Punctate nonobstructing left renal stones. Minimal bibasilar atelectasis versus minimal pulmonary edema. Cholelithiasis.
[2022-03-10 09:00] LABS: Add Urine Microscopic? YES; Appearance Urine Clear (Clear); Bilirubin Urine Negative (Negative); Color Urine Orange (Yellow); Leukocyte Esterase Ur Negative LEU/UL (Negative)
[2022-03-10 09:04] LABS: Glucose Urine UA Unable to determine mg/dL (Negative); Protein Urine Unable to determine mg/dL (Negative); RBC Urine 0-2 /hpf (0-2); Squamous Epithelial Cell Urine Many /hpf (Few)
[2022-03-10 09:05] LABS: Blood Urine Unable to determine (Negative); Ketones Urine Unable to determine mg/dL (Negative); Nitrate Urine Unable to determine (Negative)
[2022-03-10] MEDS: ONDANSETRON INJ 4 MG/2 ML VIAL IV PUSH (10:32)
[2022-03-10] MEDS: MORPHINE SULFATE (*CRX) 4 MG/ML INJ IV PUSH (10:32)
[2022-03-10] MEDS: SODIUM CHLORIDE 0.9% IV 1,000 ML 150 ML IV CONT (10:33)
--- NOTE | 2022-03-10 10:45 | PC.NURSE ---
Patient off unit to CT.
[2022-03-10 10:53] LABS: Basophils Absolute Auto 0.1 K/mm3 (0.0-0.1); Basophils Percent Auto 0.5 % (0.2-1.2); Eosinophils Percent Auto 0.1 % (0-4.4); Hematocrit 43.1 % (37.0-47.0); Hemoglobin 14.7 g/dL (12.0-15.0); Immature Granulocyte Absolute 0.04 K/mm3 (0.00-0.031); Immature Granulocyte Percent A 0.3 % (0-0.5); Lymphocytes Absolute Auto 2.36 K/mm3 (0.9-3.2); Lymphocytes Percent Auto 19.1 % (18.3-44.2); Mean Corpuscular HGB Conc 34.1 g/dl (32-36); Mean Corpuscular Hemoglobin 28.9 pg (26-34); Mean Corpuscular Volume 84.7 fl (80-100); Mean Platelet Volume 8.6 fl (7.4-10.4); Monocytes Percent Auto 8.2 % (2.6-8.5); Neutrophils Absolute Auto 8.9 K/mm3 (1.3-6.7); Neutrophils Percent Auto 71.8 % (45.5-73.1); Platelet Count Result 245 k/mm3 (150-375); Red Blood Count 5.09 M/mm3 (4.2-5.4); Red Cell Distribution Width 12.6 % (11.5-14.5); White Blood Count 12.4 K/mm3 (4.5-10.0)
[2022-03-10 10:58] LABS: Lactic Acid Reflex 1.1 mmol/L (0.7-2.0)
[2022-03-10 11:01] LABS: Alanine Aminotransferase 23 U/L (6-35); Albumin Level 4.2 g/dL (3.5-5.1); Alkaline Phosphatase 62 U/L (38-126); Anion Gap 6 mmol/L (8-16); Aspartate Amino Transferase 23 U/L (14-36); Bilirubin,Total 0.5 mg/dL (0.2-1.3); Blood Urea Nitrogen 14 mg/dL (7-17); Calcium 8.7 mg/dL (8.4-10.2); Carbon Dioxide 30 mmol/L (22-30); Chloride 102 mmol/L (98-107); Estimated CRCL calculation 70 ml/min; Estimated Glomerular Filt Rate > 60; Glucose 95 mg/dL (65-110); Potassium 3.6 mmol/L (3.4-5.0); Sodium 138 mmol/L (137-145)
--- NOTE | 2022-03-10 13:28 | ED.GENADULT ---
HPI - General Adult General Chief complaint: Urogenital-Female Stated complaint: I have an UTI Time Seen by Provider: 03/10/22 08:39 Source: patient and family Mode of arrival: ambulatory Limitations: no limitations History of Present Illness HPI narrative: 81-year-old with a history of interstitial [id number] with complaints of dysuria, severe pain in the bladder. Patient states that have another UTI. Patient also mentions that she had some bladder procedure by Dr. Delarosa finished a course of antibiotic. Presently denies any fever or chills no history of nausea or vomiting. No blood in the urine. Onset (ago): day(s) (1) Radiation: non-radiation Severity: moderate Quality: burning and aching Pain Consistency: constant Relieving factors: none Exacerbating factors: none Associated symptoms: denies other symptoms Related Data Home Medications Medication Instructions Recorded Confirmed amlodipine 5 mg tablet 10 mg PO QAM 03/20/19 10/19/21 cholecalciferol (vitamin D3) 50 50 mcg PO DAILY 03/20/19 10/07/21 mcg (2,000 unit) capsule (Vitamin D3) fluticasone propionate 50 1 spray intranasal DAILY 03/20/19 10/07/21 mcg/actuation nasal spray,suspension (Flonase Allergy Relief) hydrocortisone 10 mg tablet 15 mg PO DAILY 03/20/19 10/07/21 omeprazole 40 mg capsule,delayed 40 mg PO DAILY 03/20/19 10/07/21 release simvastatin 20 mg tablet 10 mg PO HS 03/20/19 10/07/21 fexofenadine 180 mg tablet 180 mg PO DAILY PRN Congestion 09/19/19 10/07/21 (Loraine Allergy) ascorbic acid (vitamin C) 1,000 mg 1 cap PO DAILY 05/27/20 10/07/21 capsule,extended release black cohosh root extract 200 mg 200 mg PO DAILY 05/27/20 10/07/21 capsule hydrochlorothiazide 25 mg tablet 25 mg PO QAM 05/27/20 10/07/21 metformin 500 mg tablet 500 mg PO QAM 05/27/20 10/07/21 methenamine-sod ant-salicyl 162 1 tablet PO DAILY PRN Bladder 05/27/20 10/07/21 mg-97 mg-65 mg tablet Spasms amoxicillin 500 mg-potassium 1 tablet PO Q12H 10/07/21 10/07/21 clavulanate 125 mg tablet (Augmentin) apixaban 2.5 mg tablet (Eliquis) 2.5 mg PO QAM 10/07/21 10/07/21 lisinopril 10 mg tablet 10 mg QAM 10/07/21 10/07/21 Allergies Allergy/AdvReac Type Severity Reaction Status Date / Time sulfamethoxazole Allergy Unknown HIVES Verified 01/10/22 10:50 trimethoprim Allergy Unknown HIVES Verified 01/10/22 10:50 sertraline Allergy VERTIGO Verified 01/10/22 10:50 buspirone AdvReac BODY ACHES Verified 01/10/22 10:50 ciprofloxacin AdvReac BODY ACHES Verified 01/10/22 10:50 Review of Systems Review of Systems: All systems reviewed & are unremarkable except as noted in HPI and below Constitutional: Constitutional: Reports no additional constitutional complaints Eyes: Eyes: Reports no additional eye complaints ENT: Reports system reviewed and no additional complaints, except as documented Cardiovascular: Cardiovascular: Reports no additional cardiovascular complaints Respiratory: Respiratory: Reports no additional respiratory complaints Gastrointestinal: Gastrointestinal: Reports no additional gastrointestinal complaints Genitourinary: Genitourinary: Reports as per HPI Musculoskeletal: Musculoskeletal: Reports no additional musculoskeletal complaints Integumentary/Breasts: Skin/Breast: Reports system reviewed and no additional complaints, except as docu Neurologic: Reports system reviewed and no additional complaints, except as documented Psychiatric: Psychiatric: Reports no additional psychiatric complaints [facility] Past Medical History Medical History Adrenal insufficiency Anticoagulant long-term use Chronic steroid use GERD (gastroesophageal reflux disease) History of lung cancer Hyperlipidemia Hypertension ARDEN (obstructive sleep apnea) Pulmonary embolism Surgical History Surgical History History of lobectomy of lung right
== END 2022-03-10 14:08 | disposition home or self-care (01) ==
PROVIDERS: Emergency Provider Family Medicine
DX: N30.10 Interstitial cystitis (chronic) without hematuria (principal); E78.5 Hyperlipidemia, unspecified; I10 Essential (primary) hypertension; E27.40 Unspecified adrenocortical insufficiency; K21.9 Gastro-esophageal reflux disease without esophagitis; G47.33 Obstructive sleep apnea (adult) (pediatric); Z85.118 Personal history of other malignant neoplasm of bronchus and lung; Z86.711 Personal history of pulmonary embolism; Z79.01 Long term (current) use of anticoagulants; Z79.84 Long term (current) use of oral hypoglycemic drugs; Z90.2 Acquired absence of lung [part of]
CPT/HCPCS: 36415; 74176; 80053; 81001; 83605; 85025; 87086; 96361; 96374; 96375; 99284; J2270; J2405; J7030

== ENCOUNTER 2022-09-03 00:23 | Day surgery (SDC) | payer MEDICARE, SELFPAY ==
[2022-08-26 14:43] VITALS: BMI 28.3
--- NOTE | 2022-08-26 14:57 | PC.NURSE ---
Report to the Outpatient Waiting Room, entrance under the green pavilion located off [facility], at time __0600 on date __09/03/22 . Planned Procedure Time: _0730 . Time changes happen often and if your time is changed the preop area will call you the afternoon before. - You and your visitor will be asked to self-screen and do not enter if you have any COVID symptoms. - A mask is optional within the hospital at this time. Patients may have clear liquids (water, carbonated beverages, clear teas, apple juice) until 3 hours prior to surgery with a maximum of 20 ounces. - No food from midnight until time of surgery - Infants may have breast milk until 4 hours before surgery, formula 6 hours prior to surgery. - Children will be allowed to drink immediately following surgery. If applicable, please bring a bottle or sippy cup to assist with drinking. Juice, water, soda, and popsicles are readily available. For infants on formula, please bring formula the day of surgery. Pacifiers are allowed. Take the following medications with a SIP of water the morning of surgery: _CITALOPRAM,HYDROCODONE IF NEEDED FOR PAIN DO NOT STOP ANY OF YOUR OTHER PRESCRIPTION MEDICATIONS PRIOR TO SURGERY ?EXCEPT THE FOLLOWING Medications to discontinue per physician ____ELIQUIS 2 DAYS PER ART/DR CARRENO LAST DOSE 09/01/22. ALL VITAMINS/SUPPLEMENTS 3 DAYS PRE OP.LAST DOSE 08/31/22 Please no make-up, nail bengali, hairspray, perfume, deodorant, or body powder the day of surgery. No jewelry (including any body piercings) or valuables the day of surgery, leave them at home. Please take a shower or bath the night before, or the morning of, surgery with an antibacterial soap. Wear comfortable, loose fitting clothing. Children are encouraged to wear pajamas. - Jewelry must be removed prior to entering the operating room. Rings and piercings that are not removed may be cut off. - The hospital will not accept responsibility for valuables. - Please leave all valuables, including medications, at home the day of surgery. If you are going home after surgery, a licensed cdl truck driver must drive you home. - NO public transportation without another adult if you receive anesthesia. - We recommend that an adult stay with you for 24 hours following discharge. - We also recommend that you do not drive, make important decision, drink alcoholic beverages, or take any drugs that were not prescribed by your health care provider for at least 24 hours after your discharge time. For Pediatric surgeries, we recommend two adults accompany the child home. Follow any additional instructions given to you from your surgeon. If you or anyone in your household have experienced Covid symptoms in the past week, please notify your surgeon or the nurse liaison at the phone number below for possible testing. FAXED instructions given to _[facility] 08/26/22 @ 1500 .VERBAL INST. GIVEN TO SON CAROL ANN and asked if any additional questions and then verbalized understanding. Patient advised to call surgeon office or pre surgery nurse liaison [phone] if any additional questions.
--- NOTE | 2022-09-02 12:55 | WPDANESEPPF ---
Anes - Initial Pre Proc Eval Procedure: Operation Date: 09/03/22 07:30 Proposed Procedures p Cystoscopy with Steroid Injection Bladder Biopsy - John Delarosa MD Date/Time: 09/02/22 12:55 Surgeon: John Delarosa MD Pre Op Diagnosis: hunners ulcer Patient Data Age: 81 Gender: F Height: 1.63 m Weight: 74.9 kg Allergies Allergy/AdvReac Type Severity Reaction Status Date / Time sulfamethoxazole Allergy Unknown HIVES Verified 09/03/22 06:18 trimethoprim Allergy Unknown HIVES Verified 09/03/22 06:18 sertraline Allergy VERTIGO Verified 09/03/22 06:18 buspirone AdvReac BODY ACHES Verified 09/03/22 06:18 [facility] AdvReac Unknown Verified 09/03/22 06:18 ciprofloxacin AdvReac BODY ACHES Verified 09/03/22 06:18 Home Medications Medication Instructions Recorded Confirmed Type fluticasone propionate 50 1 spray intranasal DAILY 03/20/19 08/26/22 History mcg/actuation nasal spray,suspension (Flonase Allergy Relief) hydrocortisone 10 mg tablet 10 mg PO DAILY 03/20/19 08/26/22 History omeprazole 40 mg capsule,delayed 20 mg PO DAILY 03/20/19 08/26/22 History release simvastatin 20 mg tablet 20 mg PO HS 03/20/19 08/26/22 History fexofenadine 180 mg tablet 180 mg PO DAILY PRN Congestion 09/19/19 08/26/22 History (Loraine Allergy) tramadol 50 mg tablet 50 mg PO Q6H PRN pain #20 tabs 09/24/19 08/26/22 Rx black cohosh root extract 200 mg 200 mg PO DAILY 05/27/20 08/26/22 History capsule hydrochlorothiazide 25 mg tablet 25 mg PO QAM 05/27/20 08/26/22 History metformin 500 mg tablet 500 mg PO QAM 05/27/20 08/26/22 History methenamine-sod ant-salicyl 162 1 tablet PO DAILY PRN Bladder 05/27/20 08/26/22 History mg-97 mg-65 mg tablet Spasms apixaban 2.5 mg tablet (Eliquis) 2.5 mg PO QAM 10/07/21 08/26/22 History lisinopril 10 mg tablet 10 mg QAM 10/07/21 08/26/22 History hydrocodone 5 mg-acetaminophen 325 1 tablet PO Q8H PRN pain #14 tabs 03/10/22 08/26/22 Rx mg tablet acetaminophen 325 mg tablet 325 mg PO PRN PRN Pain 08/26/22 08/26/22 History citalopram 10 mg tablet 10 mg PO DAILY 08/26/22 08/26/22 History cranberry fruit 450 mg tablet 450 mg PO DAILY 08/26/22 08/26/22 History (cranberry) lactobacillus combo #5 150 mg (2 150 mg PO DAILY 08/26/22 08/26/22 History billion cell) tablet,delayed release loperamide 2 mg capsule 2 mg PO Q6H PRN Loose Stool 08/26/22 08/26/22 History ondansetron HCl 4 mg tablet 4 mg PO PRN PRN Nausea 08/26/22 08/26/22 History phenazopyridine 200 mg tablet 200 mg PO PRN PRN pain 08/26/22 08/26/22 History (Pyridium) potassium chloride 10 mEq 10 meq PO DAILY 08/26/22 08/26/22 History capsule,extended release Patient hx anesthesia problems: none Family hx anesthesia problems: none Results Review: All pre-operative results and documents have been reviewed as part of the pre-operative evaluation. [facility] Past Medical History Medical History Adrenal insufficiency Anticoagulant long-term use Chronic steroid use GERD (gastroesophageal reflux disease) History of lung cancer Hyperlipidemia Hypertension ARDEN (obstructive sleep apnea) Pulmonary embolism Surgical History Surgical History History of lobectomy of lung right middle lobe Social History Social History Smoking status: Never smoker Second hand tobacco smoke exposure: No Alcohol intake: never Substance use: never Substance use type: does not use Living arrangements: shelter Gender identity (if verbalized by the patient): Female Spiritual care concerns: No Anes - Eval Final PreProcedure Day of Procedure 09/02/22 12:55 Patient weight: overweight Heart: regular rate and rhythm Lungs: decreased breath sounds Neurological: alert and oriented Last oral intake: >/= 8 hours ASA clas
--- NOTE | 2022-09-02 13:01 | PM.IMHP ---
H&P: HPI History of Present Illness Date/Time: 09/02/22 13:01 Chief Complaint: Hunner's ulcer Narrative: she has history of Hunner's ulcerations. She is ready for another steroid injection. Last injection was January 2022 Review of Systems Review of Systems: All systems reviewed & are unremarkable except as noted in HPI and below PMFSH Past Medical History Medical History Adrenal insufficiency Anticoagulant long-term use Chronic steroid use GERD (gastroesophageal reflux disease) History of lung cancer Hyperlipidemia Hypertension ARDEN (obstructive sleep apnea) Pulmonary embolism Surgical History Surgical History History of lobectomy of lung right middle lobe Social History Social History Smoking status: Never smoker Second hand tobacco smoke exposure: No Alcohol intake: never Substance use: never Substance use type: does not use Living arrangements: [facility]dc Gender identity (if verbalized by the patient): Female Spiritual care concerns: No Meds Home Medications and Allergies Home Medications Medication Instructions Recorded Confirmed Type fluticasone propionate 50 1 spray intranasal DAILY 03/20/19 08/26/22 History mcg/actuation nasal spray,suspension (Flonase Allergy Relief) hydrocortisone 10 mg tablet 10 mg PO DAILY 03/20/19 08/26/22 History omeprazole 40 mg capsule,delayed 20 mg PO DAILY 03/20/19 08/26/22 History release simvastatin 20 mg tablet 20 mg PO HS 03/20/19 08/26/22 History fexofenadine 180 mg tablet 180 mg PO DAILY PRN Congestion 09/19/19 08/26/22 History (Loraine Allergy) tramadol 50 mg tablet 50 mg PO Q6H PRN pain #20 tabs 09/24/19 08/26/22 Rx black cohosh root extract 200 mg 200 mg PO DAILY 05/27/20 08/26/22 History capsule hydrochlorothiazide 25 mg tablet 25 mg PO QAM 05/27/20 08/26/22 History metformin 500 mg tablet 500 mg PO QAM 05/27/20 08/26/22 History methenamine-sod ant-salicyl 162 1 tablet PO DAILY PRN Bladder 05/27/20 08/26/22 History mg-97 mg-65 mg tablet Spasms apixaban 2.5 mg tablet (Eliquis) 2.5 mg PO QAM 10/07/21 08/26/22 History lisinopril 10 mg tablet 10 mg QAM 10/07/21 08/26/22 History hydrocodone 5 mg-acetaminophen 325 1 tablet PO Q8H PRN pain #14 tabs 03/10/22 08/26/22 Rx mg tablet acetaminophen 325 mg tablet 325 mg PO PRN PRN Pain 08/26/22 08/26/22 History citalopram 10 mg tablet 10 mg PO DAILY 08/26/22 08/26/22 History cranberry fruit 450 mg tablet 450 mg PO DAILY 08/26/22 08/26/22 History (cranberry) lactobacillus combo #5 150 mg (2 150 mg PO DAILY 08/26/22 08/26/22 History billion cell) tablet,delayed release loperamide 2 mg capsule 2 mg PO Q6H PRN Loose Stool 08/26/22 08/26/22 History ondansetron HCl 4 mg tablet 4 mg PO PRN PRN Nausea 08/26/22 08/26/22 History phenazopyridine 200 mg tablet 200 mg PO PRN PRN pain 08/26/22 08/26/22 History (Pyridium) potassium chloride 10 mEq 10 meq PO DAILY 08/26/22 08/26/22 History capsule,extended release Allergies Allergy/AdvReac Type Severity Reaction Status Date / Time sulfamethoxazole Allergy Unknown HIVES Verified 08/26/22 14:28 trimethoprim Allergy Unknown HIVES Verified 08/26/22 14:28 sertraline Allergy VERTIGO Verified 08/26/22 14:28 buspirone AdvReac BODY ACHES Verified 08/26/22 14:28 cariprazine [From [facility]] AdvReac Unknown Verified 08/26/22 14:28 ciprofloxacin AdvReac BODY ACHES Verified 08/26/22 14:28 Exam Narrative: no acute distress normal breathing alert oriented Assessment and Plan Assessment and plan (1) 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 Understands risks of bleeding, infection, lack of efficacy, nee
[2022-09-03 06:27] VITALS: BP 152/90; PULSE 100; RESP 16; TEMP 36.6; O2SAT 94
[2022-09-03] MEDS: LACTATED RINGERS 1,000 ML 30 ML IV CONT (06:45)
--- NOTE | 2022-09-03 07:10 | WPDHPUPDATE1 ---
History and Physical Update Update Date/Time: 09/03/22 07:10 History and Physical has been reviewed, including an updated exam of the patient. There are NO changes in the patient's condition. Risks, benefits, and alternatives have been discussed and questions answered. Patient agrees to proceed with procedure.
[2022-09-03] MEDS: ceFAZolin 2 GM/D5W 50 ML 2 GM/50 ML BAG IVPB (07:30)
[2022-09-03] MEDS: LIDOCAINE HCL 2% GEL UROJET 10 ML PKG MUCOUS MEM (07:49)
--- NOTE | 2022-09-03 07:50 | W.PM.PROC2 ---
Procedure Note - Detailed Date of Procedure 09/03/22 Pre-op Diagnosis hunners ulcer Post-op Diagnosis Same Procedure Performed Cystoscopy with bladder biopsy and steroid injection Surgeon John Delarosa MD Anesthesia MAC and Local Findings Hunner's ulcerations near dome of bladder Description of Procedure She was correctly identified. Informed consent obtained. She from the operating room. She was given MAC anesthesia. She was prepped and draped in the standard fashion. She was placed in dorsal lithotomy position. A time-out performed. She was given appropriate perioperative antibiotics. I examined her bladder of his cystoscopy. She had 2 areas of Hunner's ulceration on the dome of the bladder. One of these areas were biopsied. Both areas were generously fulgurated. I then injected steroids into both lesions. 200 mg of Kenalog a dose of 40 mg per mill. There was no bleeding the injection sites. Her bladder was drained. There was no bleeding. She was awakened transferred to PACU in stable condition. Estimated Blood Loss 1 Pathology Yes (Bladder biopsy) Complications No immediate complications Condition Stable Disposition PACU
[2022-09-03 07:54] VITALS: BP 143/78; PULSE 88; RESP 16; O2SAT 98
[2022-09-03] MEDS: TRIAMCINOLONE ACET INJ 40 MG/ML VIAL 200 MG IM (07:54)
[2022-09-03 08:07] LABS: Glucose Point of Care 99 mg/dl (65-105)
[2022-09-03 08:20] VITALS: BP 167/82; PULSE 84; RESP 16; O2SAT 93
[2022-09-03 08:40] VITALS: BP 159/80; PULSE 85; RESP 16
== END 2022-09-03 08:52 | disposition home or self-care (01) ==
PROVIDERS: Visit Provider Urology
PROC: 0TBB8ZX Excision of Bladder, Via Natural or Artificial Opening Endoscopic, Diagnostic (ICD-10-PCS; CPT 52204; principal; 2022-09-03 07:30)
DX: N30.10 Interstitial cystitis (chronic) without hematuria (principal); I10 Essential (primary) hypertension; E78.5 Hyperlipidemia, unspecified; G47.33 Obstructive sleep apnea (adult) (pediatric); K21.9 Gastro-esophageal reflux disease without esophagitis; E27.40 Unspecified adrenocortical insufficiency; Z79.84 Long term (current) use of oral hypoglycemic drugs; Z79.01 Long term (current) use of anticoagulants; Z79.891 Long term (current) use of opiate analgesic; Z90.2 Acquired absence of lung [part of]; Z86.711 Personal history of pulmonary embolism
CPT/HCPCS: 52204; 52283; 82948; 88305; J0690; J2704; J3010; J3301; J7120

== ENCOUNTER 2023-03-21 00:40 | Day surgery (SDC) | payer MEDICARE, SELFPAY ==
[2023-03-17 13:25] VITALS: BMI 31.3
--- NOTE | 2023-03-17 13:35 | PC.NURSE ---
PRE-OP INSTRUCTIONS, PLEASE READ CAREFULLY Report to the Outpatient Waiting Room, entrance under the green pavilion located off [facility], at time _0900_ on date _03/21/23_. Planned Procedure Time: _1100_. Time changes happen often and if your time is changed the preop area will call you the afternoon before. - You and your visitor will be asked to self-screen and do not enter if you have any COVID symptoms. - A mask is optional within the hospital at this time. Patients may have clear liquids (water, carbonated beverages, clear teas, apple juice) until 3 hours prior to surgery (0800 AM) with a maximum of 20 ounces. - No food from midnight until time of surgery Take the following medications with a SIP of water the morning of surgery: _AMLODIPINE, CITALOPRAM, DULOXETINE, HYDROCORTISONE, & PAIN MEDS IF NEEDED_ DO NOT STOP ANY OF YOUR OTHER PRESCRIPTION MEDICATIONS PRIOR TO SURGERY ?EXCEPT THE FOLLOWING Medications to discontinue - _JOVANNIQUIS PER DR. FERREIRA INSTRUCTIONS, - CALL OFFICE IF NEEDED [phone]) Medications to discontinue per ANESTHESIA - _ MULTIVITAMIN, PROBIOTIC, CRANBERRY 3 DAYS PRIOR TO SURGERY, Date to take last dose 03/17/23_ Please no make-up, nail ukrainian, hairspray, perfume, deodorant, or body powder the day of surgery. No jewelry (including any body piercings) or valuables the day of surgery, leave them at home. Please take a shower or bath the night before, or the morning of, surgery with an antibacterial soap. Wear comfortable, loose fitting clothing. - Jewelry must be removed prior to entering the operating room. Rings and piercings that are not removed may be cut off. - The hospital will not accept responsibility for valuables. - Please leave all valuables, including medications, at home the day of surgery. If you are going home after surgery, a licensed short haul driver must drive you home. - NO public transportation without another adult if you receive anesthesia. - We recommend that an adult stay with you for 24 hours following discharge. - We also recommend that you do not drive, make important decision, drink alcoholic beverages, or take any drugs that were not prescribed by your health care provider for at least 24 hours after your discharge time. Follow any additional instructions given to you from your surgeon. If you or anyone in your household have experienced Covid symptoms in the past week, please notify your surgeon or the nurse liaison at the phone number below for possible testing. Instructions FAXED to _[facility], VIA PHONE WITH SON CAROL ANN_and asked if any additional questions and then verbalized understanding. Patient advised to call surgeon office or pre surgery nurse liaison [phone] if any additional questions.
--- NOTE | 2023-03-20 14:19 | PM.IMHP ---
H&P: HPI History of Present Illness Date/Time: 03/20/23 14:19 Chief Complaint: Hunner ulcer Narrative: recurrent Hunner ulcer symptoms. Urine culture negative Review of Systems Review of Systems: All systems reviewed & are unremarkable except as noted in HPI and below PMFSH Past Medical History Medical History Adrenal insufficiency Anticoagulant long-term use Chronic steroid use GERD (gastroesophageal reflux disease) History of lung cancer Hyperlipidemia Hypertension ARDEN (obstructive sleep apnea) Pulmonary embolism Surgical History Surgical History History of lobectomy of lung right middle lobe Social History Social History Smoking status: Never smoker Second hand tobacco smoke exposure: No Alcohol intake: never Substance use: never Substance use type: does not use Living arrangements: custodial Additional living arrangements comments: [facility] Gender identity (if verbalized by the patient): Female Spiritual care concerns: No Meds Home Medications and Allergies Home Medications Medication Instructions Recorded Confirmed Type fluticasone propionate 50 1 spray intranasal DAILY 03/20/19 03/17/23 History mcg/actuation nasal spray,suspension (Flonase Allergy Relief) hydrocortisone 10 mg tablet 10 mg PO BID 03/20/19 03/17/23 History omeprazole 40 mg capsule,delayed 20 mg PO DAILY 03/20/19 03/17/23 History release simvastatin 20 mg tablet 20 mg PO HS 03/20/19 03/17/23 History fexofenadine 180 mg tablet 180 mg PO DAILY PRN Congestion 09/19/19 03/17/23 History (Loraine Allergy) metformin 500 mg tablet 500 mg PO BID 05/27/20 03/17/23 History methenamine-sod ant-salicyl 162 1 tablet PO QID PRN Bladder Spasms 05/27/20 03/17/23 History mg-97 mg-65 mg tablet apixaban 2.5 mg tablet (Eliquis) 2.5 mg PO BID 10/07/21 03/17/23 History lisinopril 10 mg tablet 10 mg QAM 10/07/21 03/17/23 History acetaminophen 325 mg tablet 325 mg PO BID PRN Pain 08/26/22 03/17/23 History citalopram 10 mg tablet 20 mg PO DAILY 08/26/22 03/17/23 History cranberry fruit 450 mg tablet 450 mg PO DAILY 08/26/22 03/17/23 History (cranberry) lactobacillus combo #5 150 mg (2 150 mg PO DAILY 08/26/22 03/17/23 History billion cell) tablet,delayed release loperamide 2 mg capsule 2 mg PO Q6H PRN Loose Stool 08/26/22 03/17/23 History ondansetron HCl 4 mg tablet 4 mg PO PRN PRN Nausea 08/26/22 03/17/23 History phenazopyridine 200 mg tablet 200 mg PO TID PRN pain 6 doses #30 09/03/22 03/17/23 Rx (Pyridium) tabs acetaminophen 500 mg tablet 500 mg PO BID PAIN 03/17/23 03/17/23 History amlodipine 10 mg tablet 10 mg DAILY 03/17/23 03/17/23 History ascorbic acid 1,000 1 ea PO DAILY 03/17/23 03/17/23 History [id number]-[id number] powder effervescent pack (Emergen-C) diphenhydramine HCl 25 mg capsule 25 mg PO Q6H PRN Congestion 03/17/23 03/17/23 History duloxetine 30 mg capsule,delayed 30 mg PO DAILY 03/17/23 03/17/23 History release furosemide 20 mg tablet 20 mg DAILY 03/17/23 03/17/23 History guaifenesin 100 mg/5 mL oral liquid 100 mg PO Q6H PRN Cough 03/17/23 03/17/23 History hydrocodone 5 mg-acetaminophen 325 1 tablet PO Q6H PRN pain 03/17/23 03/17/23 History mg tablet tramadol 50 mg tablet 50 mg PO BID pain 03/17/23 03/17/23 History Allergies Allergy/AdvReac Type Severity Reaction Status Date / Time sulfamethoxazole Allergy Unknown HIVES Verified 03/17/23 13:00 trimethoprim Allergy Unknown HIVES Verified 03/17/23 13:00 sertraline Allergy VERTIGO Verified 03/17/23 13:00 buspirone AdvReac BODY ACHES Verified 03/17/23 13:00 cariprazine [From [facility]] AdvReac Unknown Verified 03/17/23 13:00 ciprofloxacin AdvReac BODY ACHES Verified 03/17/23 13:00 Exam Narrative: no acute distress normal
--- NOTE | 2023-03-21 07:13 | WPDHPUPDATE1 ---
History and Physical Update Update Date/Time: 03/21/23 07:13 History and Physical has been reviewed, including an updated exam of the patient. There are NO changes in the patient's condition. Risks, benefits, and alternatives have been discussed and questions answered. Patient agrees to proceed with procedure.
[2023-03-21 10:00] VITALS: BP 162/79; PULSE 113; RESP 16; TEMP 36.7; O2SAT 92
[2023-03-21] MEDS: LACTATED RINGERS 1,000 ML 30 ML IV CONT (10:00)
[2023-03-21 10:21] LABS: Glucose Point of Care 92 mg/dl (65-105)
--- NOTE | 2023-03-21 10:23 | WPDANESEPPF ---
Anes - Initial Pre Proc Eval Procedure: Operation Date: 03/21/23 11:00 Proposed Procedures p Cystoscopy, Bladder Biopsy, Steroid Injection - John Delarosa MD Date/Time: 03/21/23 10:23 Surgeon: John Delarosa MD Pre Op Diagnosis: hunners ulcer Patient Data Age: 82 Gender: F Height: 1.63 m Weight: 82.72 kg Allergies Allergy/AdvReac Type Severity Reaction Status Date / Time sulfamethoxazole Allergy Unknown HIVES Verified 03/17/23 13:00 trimethoprim Allergy Unknown HIVES Verified 03/17/23 13:00 buspirone AdvReac BODY ACHES Verified 03/17/23 13:00 cariprazine [From [facility]] AdvReac Unknown Verified 03/17/23 13:00 ciprofloxacin AdvReac BODY ACHES Verified 03/17/23 13:00 sertraline AdvReac VERTIGO Verified 03/21/23 07:20 Home Medications Medication Instructions Recorded Confirmed Type fluticasone propionate 50 1 spray intranasal DAILY 03/20/19 03/17/23 History mcg/actuation nasal spray,suspension (Flonase Allergy Relief) hydrocortisone 10 mg tablet 10 mg PO BID 03/20/19 03/17/23 History omeprazole 40 mg capsule,delayed 20 mg PO DAILY 03/20/19 03/17/23 History release simvastatin 20 mg tablet 20 mg PO HS 03/20/19 03/17/23 History fexofenadine 180 mg tablet 180 mg PO DAILY PRN Congestion 09/19/19 03/17/23 History (Loraine Allergy) metformin 500 mg tablet 500 mg PO BID 05/27/20 03/17/23 History methenamine-sod ant-salicyl 162 1 tablet PO QID PRN Bladder Spasms 05/27/20 03/17/23 History mg-97 mg-65 mg tablet apixaban 2.5 mg tablet (Eliquis) 2.5 mg PO BID 10/07/21 03/17/23 History lisinopril 10 mg tablet 10 mg QAM 10/07/21 03/17/23 History acetaminophen 325 mg tablet 325 mg PO BID PRN Pain 08/26/22 03/17/23 History citalopram 10 mg tablet 20 mg PO DAILY 08/26/22 03/17/23 History cranberry fruit 450 mg tablet 450 mg PO DAILY 08/26/22 03/17/23 History (cranberry) lactobacillus combo #5 150 mg (2 150 mg PO DAILY 08/26/22 03/17/23 History billion cell) tablet,delayed release loperamide 2 mg capsule 2 mg PO Q6H PRN Loose Stool 08/26/22 03/17/23 History ondansetron HCl 4 mg tablet 4 mg PO PRN PRN Nausea 08/26/22 03/17/23 History phenazopyridine 200 mg tablet 200 mg PO TID PRN pain 6 doses #30 09/03/22 03/17/23 Rx (Pyridium) tabs acetaminophen 500 mg tablet 500 mg PO BID PAIN 03/17/23 03/17/23 History amlodipine 10 mg tablet 10 mg DAILY 03/17/23 03/17/23 History ascorbic acid 1,000 1 ea PO DAILY 03/17/23 03/17/23 History nx-iljnbmupxxdb-ehlpccjv powder effervescent pack (Emergen-C) diphenhydramine HCl 25 mg capsule 25 mg PO Q6H PRN Congestion 03/17/23 03/17/23 History duloxetine 30 mg capsule,delayed 30 mg PO DAILY 03/17/23 03/17/23 History release furosemide 20 mg tablet 20 mg DAILY 03/17/23 03/17/23 History guaifenesin 100 mg/5 mL oral liquid 100 mg PO Q6H PRN Cough 03/17/23 03/17/23 History hydrocodone 5 mg-acetaminophen 325 1 tablet PO Q6H PRN pain 03/17/23 03/17/23 History mg tablet tramadol 50 mg tablet 50 mg PO BID pain 03/17/23 03/17/23 History Laboratory Tests 03/21/23 10:16 POC Capillary Glucose 92 mg/dl (65-105) Patient hx anesthesia problems: none Family hx anesthesia problems: none Results Review: All pre-operative results and documents have been reviewed as part of the pre-operative evaluation. [facility] Past Medical History Medical History Adrenal insufficiency Anticoagulant long-term use Chronic steroid use GERD (gastroesophageal reflux disease) History of lung cancer Hyperlipidemia Hypertension ARDEN (obstructive sleep apnea) Pulmonary embolism Surgical History Surgical History History of lobectomy of lung right middle lobe Social History Social History Smoking status: Never smoker Second hand tobacco smoke exposure: No Alcohol intake: never Subs
[2023-03-21] MEDS: ceFAZolin 2 GM/D5W 50 ML 2 GM/50 ML BAG IVPB (10:25)
[2023-03-21] MEDS: TRIAMCINOLONE ACET INJ 40 MG/ML VIAL 200 MG IM (10:38)
[2023-03-21 10:47] VITALS: BP 174/74; PULSE 94; RESP 14; O2SAT 99
[2023-03-21 10:58] LABS: Glucose Point of Care 90 mg/dl (65-105)
[2023-03-21 11:15] VITALS: BP 166/75; PULSE 90; RESP 16
--- NOTE | 2023-04-01 04:30 | W.PM.PROC2 ---
Procedure Note - Detailed Date of Procedure 03/21/23 Pre-op Diagnosis hunners ulcer Post-op Diagnosis Same Procedure Performed The, bladder biopsy, injection of steroids Surgeon oJhn Delarosa MD Anesthesia MAC Indications a woman with Hunner's ulcerations. She presents for repeat injection Findings under ulcer treated Description of Procedure she was correctly identified. Informed consent was obtained. She was brought the operating room. She was given monitored anesthesia care. She was placed in dorsal lithotomy position. She was prepped and draped in a sterile fashion. She was given appropriate perioperative antibiotics. A time-out performed. I performed cystoscopy. She had area of Hunner's ulceration within the bladder. It was biopsied. It was generously fulgurated to stop all bleeding. I then injected Kenalog into the ulcerated area. I injected 5 mg at a concentration 40 mg per mil. A total of 200 mg of Kenalog. There was minimal bleeding from the injection site. The bladder was monitored under low insufflation pressure. There was no active bleeding. The bladder was drained. She was awakened transferred to PACU in stable condition. Estimated Blood Loss 1 Pathology Yes ( Bladder biopsy) Complications No immediate complications Condition Stable Disposition PACU
== END 2023-03-21 11:40 | disposition home or self-care (01) ==
PROVIDERS: Visit Provider Urology
PROC: 0TBB8ZX Excision of Bladder, Via Natural or Artificial Opening Endoscopic, Diagnostic (ICD-10-PCS; CPT 52204; principal; 2023-03-21 11:00)
DX: N30.10 Interstitial cystitis (chronic) without hematuria (principal); I10 Essential (primary) hypertension; E78.5 Hyperlipidemia, unspecified; G47.33 Obstructive sleep apnea (adult) (pediatric); K21.9 Gastro-esophageal reflux disease without esophagitis; E27.40 Unspecified adrenocortical insufficiency; Z85.118 Personal history of other malignant neoplasm of bronchus and lung; Z86.711 Personal history of pulmonary embolism; Z90.2 Acquired absence of lung [part of]; E66.9 Obesity, unspecified; Z68.31 Body mass index [BMI] 31.0-31.9, adult; Z79.84 Long term (current) use of oral hypoglycemic drugs; Z79.01 Long term (current) use of anticoagulants; Z79.52 Long term (current) use of systemic steroids
CPT/HCPCS: 52204; 52283; 82948; 88305; J0690; J2704; J3301; J7120

== ENCOUNTER 2024-03-23 10:59 | Outpatient (CLI) | payer MEDICARE, SELFPAY ==
--- OUTSIDE RECORDS SUMMARY | 2024-03-23 11:10 | XMS_ITS | Encounter Summary ---
Author Organization [facility] Healthcare Address [address] [place] [id number] Care Team Providers Care Ip Architect Name Role Phone Josué Berry MD Primary Care Provider + Encounter Details Date Type Department Care Team (Late st Contact Info) Description 05/12/[address] [id number] Kristen Sepulveda RN Social History Tobacco Use Types Packs/Day Years Used Date Smoking Tobacco: Never Smokeless Tobacco: Never Alcohol Use Standard Drinks/Week Comments No 0 (1 standard drink = 0.6 oz pur e alcohol) PHQ-2 Answer Date Recorded PHQ-2 Score 2 05/11/2019 Comments No Sex and Gender Information Value Date Recorded Sex Assigned at Not on file Legal Sex Female 1:47 AM [employer] Gender Identity Not on file Sexual Orientation Not on file COVID-19 Exposure Response Date Recorded In the last month, have you been in contact with someone who was confirmed or suspected to have Coronavirus / COVID-19? No / Unsure 05/15/2019 10:12 AM CDT documented as of this encounter Plan of Treatment Not on file documented as of this encounter Visit Diagnoses Not on filedocumented in this encounter Additional Health Concerns Infection Onset Date Last Indicated Resolved Time COVID: Suspected 01/06/2020 01/06/2020 01/06/2020 3:51 PM [employer] [employer] COVID19 Comment:Positive test results noted at [facility] performed 01/01/20 per [facility]. 01/06/2020 01/06/2020 01/25/2020 3:[address] documented as of this encounter Care Teams Ip Architect Relationship Specialty Start Date End Date Josué Berry MD [address] [place] [id number] PCP - General 05/10/19 documented as of this encounter
--- OUTSIDE RECORDS SUMMARY | 2024-03-23 11:10 | XMS_ITS | Continuity of Care Document ---
Author Organization [employer] [facility] Address [address] [place] [address] Phone Care Team Providers Care Multineedle Shirrer Name Role Phone Lorie Lin Unavailable Unavailable Allergies, Adverse Reactions, Alerts Substance Reaction Status Criticality trimethoprim Active No Information sulfamethoxazole Active No Informat ion CIPROFLOXACIN HCL Active No Informa tion ciprofloxacin Active No Information MONTELUKAST SODIUM bodyaches Active No Inform ation sulfanilamide Active No Information Medications Medication Instructions Dosage Effective Dates (start - stop) Status Comments Pyridium 100 mg tablet Take one tablet b y mouth 2 times daily as needed for bladder spasm - Active Zyrtec 10 mg tablet take 1 tablet by oral route every day X 3 DAYS THEN Q 24 HRS PRN - Active Ventolin HFA 90 mcg/actuation aerosol inhaler inhale 2 puff by inhalation route every 4 - 6 hours as needed - Active hydrochlorothiazide 25 mg tablet take 1 tablet by oral route every day 25 MG - Active amlodipine 5 mg tablet take 1 tablet by oral route every day 5 MG - Active omeprazole 40 mg capsule,delayed release take 1 capsule by oral route every day before a meal 40 MG - Active Cymbalta 30 mg capsule,delayed release take 1 capsule by oral route every morning 30 MG - Active lisinopril 10 mg tablet take 1 tablet by oral route every day 10 MG - Active Eliquis 2.5 mg tablet take 1 tablet by oral route 2 times every day 2.5 MG - Active metformin 500 mg tablet take 1 tablet by oral route 2 times every day with morning and evening meals 500 MG - Active Vitamin D3 2,000 unit tablet - Active OTC amoxicillin 500 mg-potassium clavulanate 125 mg tablet Take one tablet by mouth every 12 hours with food for 10 days - No Longer Active albuterol sulfate HFA 90 mcg/actuation aerosol inhaler inhale 2 puff by inhalation route every 4 - 6 hours as needed 180 MCG - No Longer Active clonidine HCl 0.1 mg tablet take 1 tablet by oral route 2 times every day 0.1 MG - No Longer Active hydrocortisone 10 mg tablet dose unknown - No Longer Active Procedures Procedure Date URINALYSIS NONAUTO W/O SCOPE OFFICE/OUTPATIENT VISIT, EST URINALYSIS NONAUTO W/O SCOPE OFFICE/OUTPATIENT VISIT, EST OFFICE/OUTPATIENT VISIT, NEW OFFICE/OUTPATIENT VISIT, EST URINALYSIS NONAUTO W/O SCOPE OFFICE/OUTPATIENT VISIT, EST OFFICE/OUTPATIENT VISIT, EST OFFICE/OUTPATIENT VISIT, EST URINALYSIS NONAUTO W/O SCOPE Rapid COVID INFLUENZA ASSAY W/OPTIC Albuterol comp unit AIRWAY INHALATION TREATMENT OFFICE/OUTPATIENT VISIT, EST Rapid COVID OFFICE/OUTPATIENT VISIT, EST OFFICE/OUTPATIENT VISIT, EST Rapid COVID OFFICE/OUTPATIENT VISIT, EST OFFICE/OUTPATIENT VISIT, EST OFFICE/OUTPATIENT VISIT, EST URINALYSIS NONAUTO W/O SCOPE Rapid COVID OFFICE/OUTPATIENT VISIT, EST URINALYSIS NONAUTO W/O SCOPE OFFICE/OUTPATIENT VISIT, EST OFFICE/OUTPATIENT VISIT, EST OFFICE/OUTPATIENT VISIT, EST OFFICE/OUTPATIENT VISIT, EST OFFICE/OUTPATIENT VISIT, EST OFFICE/OUTPATIENT VISIT, EST OFFICE/OUTPATIENT VISIT, EST OFFICE/OUTPATIENT VISIT, EST OFFICE/OUTPATIENT VISIT, EST URINALYSIS NONAUTO W/O SCOPE OFFICE/OUTPATIENT VISIT, EST OFFICE/OUTPATIENT VISIT, EST OFFICE/OUTPATIENT VISIT, EST OFFICE/OUTPATIENT VISIT, EST OFFICE/OUTPATIENT VISIT, EST OFFICE/OUTPATIENT VISIT, EST OFFICE/OUTPATIENT VISIT, EST URINALYSIS NONAUTO W/O SCOPE OFFICE/OUTPATIENT VISIT, EST OFFICE/OUTPATIENT VISIT, EST OFFICE/OUTPATIENT VISIT, EST OFFICE/OUTPATIENT VISIT, EST OFFICE/OUTPATIENT VISIT, EST OFFICE/OUTPATIENT VISIT, EST OFFICE/OUTPATIENT VISIT, EST URINALYSIS NONAUTO W/O SCOPE OFFICE/OUTPATIENT VISIT, EST OFFICE/OUTPATIENT VISIT, EST URINALYSIS NONAUTO W/O SCOPE OFFICE/OUTPATIENT VISIT, EST URINALYSIS NONAUTO W/O SCOPE OFFICE/OUTPATIENT VISIT, EST OFFICE/OUTPATIENT VISIT, EST OFFICE/OUTPATIENT VISIT, EST OFFICE/OUTPATIENT VISIT, EST OFFICE/OUTPATIENT VISIT, EST OFFICE/OUTPATIENT VISIT, EST OFFICE/OUTPATIENT VISIT, EST OFFICE/OUTPATIENT VISIT, EST OFFICE/OUTPATIENT VISIT, EST OFFICE/OUTPATIENT VISIT, EST OFFICE/OUTPATIENT VISIT, EST OFFICE/OUTPATIENT VISIT, EST OFFICE/OUTPATIENT VISIT, EST OFFICE/OUTPATIENT VISIT, EST URINALYSIS NONAUTO W/O SCOPE OFFICE/OUTPATIENT VISIT, EST OFFICE/OUTPATIENT VISIT, EST OFFICE/OUTPATIENT VISIT, EST OFFICE/OUTPATIENT VISIT, EST OFFICE/OUTPATIENT VISIT, EST OFFICE/OUTPATIENT VISIT, EST OFFICE/OUTPATIENT VISIT, EST OFFICE/OUTPATIENT VISIT, EST OFFICE/OUTPATIENT VISIT, EST URINALYSIS NONAUTO W/O SCOPE OFFICE/OUTPATIENT VISIT, EST OFFICE/OUTPATIENT VISIT, EST OFFICE/OUTPATIENT VISIT, EST OFFICE/OUTPATIENT VISIT, EST URINALYSIS NONAUTO W/O SCOPE OFFICE/OUTPATIENT VISIT, EST OFFICE/OUTPATIENT VISIT, EST OFFICE/OUTPATIENT VISIT, EST OFFICE/OUTPATIENT VISIT, EST OFFICE/OUTPATIENT VISIT, EST OFFICE/OUTPATIENT VISIT, EST URINALYSIS NONAUTO W/O SCOPE OFFICE/OUTPATIENT VISIT, EST OFFICE/OUTPATIENT VISIT, EST Advance Directives Directive Yes / No Effective Date File Name Other Directive No N/A N/A WARNING:The information contained in this section is historical and is provided for information only and does not constitute a legal document or any assurance that the information is still accurate. Please verify the information with the fountain of the legal document before using it for clinical purposes. Encounters Encounter Description Practice Location Reason(s) For Visit Diagnoses Date Provider Providers Copied on Encounter OFFICE/OUTPA TIENT VISIT, [facility], [address] [place] [address], Formerly named [facility], tel:[phone] [place] UTI (chief complaint) DysuriaAcute cystitis with hematuria 3 Bridget Melo. [address] [place] [address], Formerly named [facility], . tel:[phone] OFFICE/OUTPA TIENT VISIT, [facility], [address] [place] [address], Formerly named [facility], tel: [phone] [place] UTI (chief complaint) Urinary symptom or sign 2 Nir Denilson. [address] [place] [address], Formerly named [facility], . tel: [phone] OFFICE/OUTPA TIENT VISIT, [facility], [address] [place] [address], Formerly named [facility], tel:[phone] [place] R EYE SWELLING (chief complaint) Seasonal allergies Nov- 2 Rhodes Gulam. [address] [place] [address], Formerly named [facility], . tel: [phone] OFFICE/OUTPA TIENT VISIT, [facility], [address] [place] [address], Formerly named [facility], tel:[phone] [place] WHITE SPOTS ON TONGUE (chief complaint) ThrushAllergi c conjunctiviti s, bilateral Oct-0 2 Breckon Lorie. [address] [place] [address], Formerly named [facility], . tel: [phone] OFFICE/OUTPA TIENT VISIT, [facility], [address] [place] [address], Formerly named [facility], tel: [phone] [place] UTI (chief complaint) Acute cystitis with hematuria Oct- 2 Maggieckon Lorie. [address] [place] [address], Formerly named [facility], . tel: [phone] OFFICE/OUTPA TIENT VISIT, [facility], [address] [place] [address], Formerly named [facility], [place] tel: [phone] [place] UTI (chief complaint) Acute cystitis with hematuria 2 Maggieckon Lorie. [address] [place] [address], Formerly named [facility], . tel:[phone] OFFICE/OUTPA TIENT VISIT, [facility], [address] [place] [address], Formerly named [facility], tel:[phone] [place] UTI (chief complaint)S INUS INFECTION (chief complaint) UTI (urinary tract infection), uncomplicated Acute cystitis without hematuria 2 Jaxon Kelley. [address] [place] [address], Formerly named [facility], . tel:[phone] OFFICE/OUTPA TIENT VISIT, [facility], [address] [place] [address], Formerly named [facility], tel:[phone] [place] COUGH (chief complaint) CoughContact With And (suspected) Exposure To COVID-19Bronc hitis 1 Jay Milagro. [address] [place] [address], Formerly named [facility], . tel:[phone] OFFICE/OUTPA TIENT VISIT, [facility], [address] [place] [address], Formerly named [facility], tel:[phone] [place] Cold symptoms (chief complaint) Contact With And (suspected) Exposure To COVID-19Acute sinusitis, unspecified 1 Laron Abbasi. [address] [place] [address], [facility], . tel:[phone] OFFICE/OUTPA TIENT VISIT, [facility], [address] [place] [address], Formerly named [facility], tel:[phone] [place] BACK PAIN (chief complaint)h pi (chief complaint) Acute right-sided thoracic back pain 1 No Information OFFICE/OUTPA TIENT VISIT, [facility], [address] [place] [address], Formerly named [facility], tel:[phone] [place] Sinus symptoms (acute) (chief complaint) Acute recurrent maxillary sinusitisCont act With And (suspected) Exposure To COVID-19 1 Nir Goff. [address] [place] [address], Formerly named [facility], . tel:[phone] OFFICE/OUTPA TIENT VISIT, [facility], [address] [place] [address], Formerly named [facility], tel:[phone] [place] ARM REDNESS/SWE LLING (chief complaint) Cellulitis of left forearm 1 Marvin Kennedy. [address], [place], Formerly named [facility], . tel: [phone] OFFICE/OUTPA TIENT VISIT, [facility], [address] [place] [address], Formerly named [facility], tel: [phone] [place] UTI (chief complaint) Abnormal urine findings Jaguar-0 1 Nir Goff. [address] [place] [address], Formerly named [facility], . tel: [phone] [facility], [address] [place] [address], Formerly named [facility], tel:[phone] [place] COVID TEST FOR PROCEDURE (chief complaint)O RDERED BY DR SHAHRZAD CARRENO (chief complaint) Encounter For Screening For Covid-19 May-0 1 Jay Humphrey. [address] [place] [address], Formerly named [facility], . tel: OFFICE/OUTPA TIENT VISIT, [facility], [address] [place] [address], Formerly named [facility], tel: [phone] [place] VERTIGO (chief complaint) Vertigo Apr-0 1 Nir Goff. [address] [place] [address], Formerly named [facility], . tel: [phone] OFFICE/OUTPA TIENT VISIT, [facility], [address] [place] [address], Formerly named [facility], tel: [phone] [place] UTI (chief complaint) Dysuria Oct-2 0 Marvin Mckinnondal. [address], [place], Formerly named [facility], [place]. tel:[phone] OFFICE/OUTPA TIENT VISIT, [facility], [address] [place] [address], Formerly named [facility], [place] tel: [phone] [place] aching all over (chief complaint) Acute maxillary sinusitis, unspecified May- 0 Justyn Lam. [address] [place], [place], [facility], [place]. tel:[phone] OFFICE/OUTPA TIENT VISIT, [facility], [address] [place] [address], Formerly named [facility], [place] tel: [phone] [place] BLOOD PRESSURE (chief complaint) Depression 0 Rhodes Gulam. [address] [place] [address], Formerly named [facility], . tel: [phone] OFFICE/OUTPA TIENT VISIT, [facility], [address] [place] [address], Formerly named [facility], tel: [phone] [place] ELEVATED BLOOD PRESSURE (chief complaint) HTNAnxiety disorder, unspecifiedAd renal insufficiency 0 Rhodes Gulam. [address] [place] [address], Formerly named [facility], . tel: [phone] OFFICE/OUTPA TIENT VISIT, [facility], [address] [place] [address], Formerly named [facility], tel:[phone] [place] IP F/U (chief complaint) Hospital discharge follow-upHTNA nxiety disorder, unspecifiedAd renal insufficiency 0 Rhodes Gulam. [address] [place] [address], Formerly named [facility], . tel: [phone] OFFICE/OUTPA TIENT VISIT, [facility], [address] [place] [address], Formerly named [facility], tel:[phone] [place] follow up (chief complaint) Urinary tract infection, site not specifiedAdre nal insufficiency Pulmonary embolism, bilateral 0 Rhodes Gulam. [address] [place] [address], Formerly named [facility], . tel: [phone] OFFICE/OUTPA TIENT VISIT, [facility], [address] [place] [address], Formerly named [facility], tel:[phone] [place] FOLLOW UP (chief complaint) Upper respiratory infectionAdre nal insufficiency 0 Rhodes Gulam. [address] [place] [address], Formerly named [facility], . tel: [phone] OFFICE/OUTPA TIENT VISIT, [facility], [address] [place] [address], Formerly named [facility], tel:[phone] [place] SINUS ISSUES (chief complaint) WeaknessUpper respiratory infection Feb-0 0 Nir Goff. [address] [place] [address], Formerly named [facility], . tel: [phone] OFFICE/OUTPA TIENT VISIT, [facility], [address] [place] [address], Formerly named [facility], [place] tel: [phone] [place] FOLLOW UP (chief complaint) Urinary tract infection, site not specifiedAdre nal insufficiency 9 Rhodes Gulam. [address] [place] [address], Formerly named [facility], [place]. tel: [phone] OFFICE/OUTPA TIENT VISIT, [facility], [address] [place] [address], Formerly named [facility], [place] tel: [phone] [place] UTI (chief complaint) Unspecified adrenocortica l insufficiency Hematuria 9 Jay Milagro. [address] [place] [address], Formerly named [facility], [place]. tel: [phone] OFFICE/OUTPA TIENT VISIT, [facility], [address] [place] [address], Formerly named [facility], [place] tel: [phone] [place] BODY ACHES (chief complaint) Adrenal insufficiency Upper respiratory infectionPulm onary embolism, bilateral 9 Rhodes Gulam. [address] [place] [address], Formerly named [facility], [place]. tel: [phone] [facility], [address] [place] [address], Formerly named [facility], [place] tel: [phone] [place] No Information 9 Rhodes Gulam. [address] [place] [address], Formerly named [facility], [place]. tel: [phone] [facility], [address] [place] [address], Formerly named [facility], [place] tel: [phone] [place] Screening mammogram, encounter for 9 Rhodes Gulam. [address] [place] [address], Formerly named [facility], . tel: [phone] [facility], [address] [place] [address], Formerly named [facility], [place] tel:[phone] [place] LAB RESULT//FOL LOWUP (chief complaint) Adrenal insufficiency Nausea 9 Rhodes Gulam. [address] [place] [address], Formerly named [facility], . tel:[phone] OFFICE/OUTPA TIENT VISIT, [facility], [address] [place] [address], Formerly named [facility], tel:[phone] [place] EYE ISSUES (chief complaint) Facial edemaVisual changes 0 9 Rhodes Gulam. [address] [place] [address], Formerly named [facility], . tel:[phone] OFFICE/OUTPA TIENT VISIT, [facility], [address] [place] [address], Formerly named [facility], tel:[phone] [place] Sinus symptoms (acute) (chief complaint) Acute recurrent maxillary sinusitis 9 Jay Milagro. [address] [place] [address], Formerly named [facility], . tel:[phone] [facility], [address] [place] [address], Formerly named [facility], tel: [phone] [place] No Information [phone] 9 Rhodes Gulam. [address] [place] [address], Formerly named [facility], . tel: [phone] OFFICE/OUTPA TIENT VISIT, [facility], [address] [place] [address], Formerly named [facility], tel: [phone] [place] NAUSEA (chief complaint) Malaise Oct- 3-201 9 Nir Goff. [address] [place] [address], Formerly named [facility], . tel:[phone] OFFICE/OUTPA TIENT VISIT, [facility], [address] [place] [address], Former[facility] named [facility], tel:[phone] [place] SINUS F/U (chief complaint) Bilateral edema of lower extremityDerm atitisFollow- up exam after treatment Sep- 0-201 9 Rhodes Gulam. [address] [place] [address], [address], [place]. tel:[phone] OFFICE/OUTPA TIENT VISIT, [facility], [address] [place] [address], Formerly named [facility], tel: [phone] [place] Sinus symptoms (acute) (chief complaint)U TI (chief complaint) Acute sinusitis, unspecified Sep-0 8 9 Stendeback Vania. [address] [place] [address], Formerly named [facility], . tel: [phone] OFFICE/OUTPA TIENT VISIT, [facility], [address] [place] [address], Formerly named [facility], [place] tel:[phone] [place] UTI (chief complaint) Abnormal urine findings 9 Nir Goff. [address] [place] [address], Formerly named [facility], . tel: [phone] OFFICE/OUTPA TIENT VISIT, [facility], [address] [place] [address], Formerly named [facility], tel: [phone] [place] Sinus symptoms (acute) (chief complaint)r chandrakant (chief complaint) Acute recurrent maxillary sinusitisSkin lesion Aug- 9 Nir Goff. [address] [place] [address], Formerly named [facility], . tel: [phone] OFFICE/OUTPA TIENT VISIT, [facility], [address] [place] [address], Formerly named [facility], tel: [phone] [place] COUGH (chief complaint) Unspecified acute lower respiratory infection 9 Jay Milagro. [address] [place] [address], Former[facility] named [facility], [place]. tel:[phone] OFFICE/OUTPA TIENT VISIT, [facility], [address] [place] [address], Former[facility] named [facility], [place] tel: [phone] [place] Cold symptoms (chief complaint) Acute maxillary sinusitis, unspecified 9 Rhodes Gulam. [address] [place] [address], Former[facility] named [facility], . tel:[phone] OFFICE/OUTPA TIENT VISIT, [facility], [address] [place] [address], Former[facility] named [facility], tel: [phone] [place] UTI (chief complaint)C omments (chief complaint) Recurrent UTIBilirubinu riaFasting hyperglycemia Apr-2 9 Rhodes Gulam. [address] [place] [address], Former[facility] named [facility], . tel: [phone] OFFICE/OUTPA TIENT VISIT, [facility], [address] [place] [address], [facility] named [facility], [place] tel:[phone] [place] DEPRESSION (chief complaint)l eg swelling (chief complaint) EdemaReactive depression Apr-1 9 9 Laron Abbasi. [address] [place] [address], [facility], [place]. tel:[phone] OFFICE/OUTPA TIENT VISIT, [facility], [address] [place] [address], Former[facility] named [facility], tel: [phone] [place] ER F/U (chief complaint) Recurrent UTIReactive depression May-0 9 Rhodes Gulam. [address] [place] [address], Former[facility] named [facility], . tel: [phone] OFFICE/OUTPA TIENT VISIT, [facility], [address] [place] [address], Former[facility] named [facility], tel: [phone] [place] UTI (chief complaint)m ed (chief complaint) Recurrent UTI May-0 9 Nir Goff. [address] [place] [address], Former[facility] named [facility], . tel: [phone] OFFICE/OUTPA TIENT VISIT, [facility], [address] [place] [address], [facility] named [facility], [place] tel: [phone] [place] UTI F/U<BE (chief complaint) Medication refillRecurre nt UTI Mar- 9 Rhodes Gulam. [address] [place] [address], Formerly named [facility], [place]. tel:[phone] OFFICE/OUTPA TIENT VISIT, [facility], [address] [place] [address], Former[facility] named [facility], tel: [phone] [place] UTI (chief complaint) Urinary tract infection, site not specified 9 Jay Milagro. [address] [place] [address], Former[facility] named [facility], . tel:[phone] OFFICE/OUTPA TIENT VISIT, [facility], [address] [place] [address], Formerly named [facility], tel: [phone] [place] UTI (chief complaint) Urinary tract infection, site not specified 9 Laron Abbasi. [address] [place] [address], [facility], . tel:[phone] OFFICE/OUTPA TIENT VISIT, [facility], [address] [place] [address], Former[facility] named [facility], tel: [phone] [place] MED REFILL (chief complaint) HTNHyperlipid emia 9 Rhodes Gulam. [address] [place] [address], Former[facility] named [facility], . tel: [phone] OFFICE/OUTPA TIENT VISIT, [facility], [address] [place] [address], Former[facility] named [facility], tel: [phone] [place] Cough (chief complaint) Acute maxillary sinusitis, unspecified 8 Justyn Lam. [address] [place] [address], [facility], . tel:[phone] OFFICE/OUTPA TIENT VISIT, [facility], [address] [place] [address], Formerly named [facility], tel: [phone] [place] Sinus symptoms (acute) (chief complaint) Acute sinusitis, unspecified 8 Nir Goff. [address] [place] [address], Formerly named [facility], [place]. tel:[phone] OFFICE/OUTPA TIENT VISIT, [facility], [address] [place] [address], Formerly named [facility], tel: [phone] [place] UTI (chief complaint)a ddt'l info (chief complaint) Urinary tract infection, site not specified 8 Stendealex Caro. [address] [place] [address], [id number], [place]. tel:[phone] OFFICE/OUTPA TIENT VISIT, [facility], [address] [place] [address], Formerly named [facility], [place] tel:[phone] [place] PRE OP PHYS (chief complaint) Pre-operative general physical examinationPe rsonal history of lung cancerHTN Sep-0 8 Laron Abbasi. [address] [place] [address], [facility], [place]. tel:[phone] OFFICE/OUTPA TIENT VISIT, [facility], [address] [place] [address], Formerly named [facility], tel:[phone] [place] uti. (chief complaint) Urinary tract infection, site not specified 8 No Information OFFICE/OUTPA TIENT VISIT, [facility], [address] [place] [address], Formerly named [facility], tel:[phone] [place] UTI (chief complaint) Chronic interstitial cystitis w/o hematuria 8 Rhodes Luclam. [address] [place] [address], Formerly named [facility], . tel:[phone] OFFICE/OUTPA TIENT VISIT, [facility], [address] [place] [address], Formerly named [facility], [place] tel:[phone] [place] UTI (chief complaint) Chronic interstitial cystitis w/o hematuria 8 Jay Milagro. [address] [place] [address], Formerly named [facility], . tel:[phone] OFFICE/OUTPA TIENT VISIT, [facility], [address] [place] [address], Formerly named [facility], [place] tel:[phone] [place] EST CARE (chief complaint) HTNGERD without esophagitisHy perlipidemiaP ersonal hx of other Ca of lungEncntr screen mammogram for malignant neoplasm of breast 8 Rhodes Gulam. [address] [place] [address], Formerly named [facility], [place]. tel:[phone] OFFICE/OUTPA TIENT VISIT, [facility], [address] [place] [address], Formerly named [facility], [place] tel:[phone] [place] Sinus symptoms (acute) (chief complaint) CoughAcute maxillary sinusitis, unspecified 8 Laron Abbasi. [address] [place] [address], [facility], [place]. tel:[phone] OFFICE/OUTPA TIENT VISIT, [facility], [address] [place] [address], Formerly named [facility], [place] tel: [phone] [place] sinus (chief complaint) Acute sinusitis, unspecifiedAc [place] cystitis without hematuria 0 8 Rhodes Guleoncio. [address] [place] [address], Formerly named [facility], [place]. tel: [phone] OFFICE/OUTPA TIENT VISIT, [facility], [address] [place] [address], Formerly named [facility], [place] tel: [phone] [place] SINUS (chief complaint) DysuriaAcute non-recurrent frontal sinusitis 7 Rosa Mary Jo. [address] [place], [place], [facility], [place]. tel:[phone] OFFICE/OUTPA TIENT VISIT, [facility], [address] [place] [address], Formerly named [facility], [place] tel: [phone] [place] UTI (chief complaint) Urinary tract infection, site not specified 3 7 Jay Milagro. [address] [place] [address], Formerly named [facility], [place]. tel: [phone] OFFICE/OUTPA TIENT VISIT, [facility], [address] [place] [address], Formerly named [facility], [place] tel: [phone] [place] UTI (chief complaint) Urinary tract infection, site not specified 7 Jay Milagro. [address] [place] [address], Formerly named [facility], [place]. tel: [phone] OFFICE/OUTPA TIENT VISIT, [facility], [address] [place] [address], Formerly named [facility], [place] tel: [phone] [place] Sinus symptoms (acute) (chief complaint) Acute non-recurrent pansinusitis 7 Rosa Mary Jo. [address] [place], [place], [facility], [place]. tel:[phone] OFFICE/OUTPA TIENT VISIT, [facility], [address] [place] [address], Formerly named [facility], tel: [phone] [place] Sinus symptoms (acute) (chief complaint) Acute non-recurrent pansinusitis Apr- 2-201 7 Rosa Camargo. [address] [place], [place], [facility], [place]. tel:[phone] OFFICE/OUTPA TIENT VISIT, [facility], [address] [place] [address], Formerly named [facility], [place] tel: [phone] [place] Cold symptoms (chief complaint) Acute bronchitis, unspecified Nov- 9 6 Longmeyer Larisa. [address] [place] [address]. tel:[phone] OFFICE/OUTPA TIENT VISIT, [facility], [address] [place] [address], Formerly named [facility], tel: [phone] [place] Sinus symptoms (acute) (chief complaint) Acute maxillary sinusitis, unspecified Sep-2 6 6 Longmeyer Larisa. [address] [place] [address]. tel:[phone] OFFICE/OUTPA TIENT VISIT, [facility], [address] [place] [address], Formerly named [facility], tel: [phone] [place] Sinus symptoms (acute) (chief complaint) Acute recurrent maxillary sinusitis Jaguar- 2201 6 No Information OFFICE/OUTPA TIENT VISIT, [facility], [address] [place] [address], Formerly named [facility], [place] tel: [phone] [place] Sinus symptoms (acute) (chief complaint) Acute maxillary sinusitis, unspecified June-201 6 Laron Abbasi. [address] [place] [address], [facility], [place]. tel:[phone] OFFICE/OUTPA TIENT VISIT, [facility], [address] [place] [address], Formerly named [facility], [place] tel: [phone] [place] UTI (chief complaint)S inus symptoms (acute) (chief complaint) Acute frontal sinusitis, unspecifiedAc [place] maxillary sinusitis, unspecifiedUr inary tract infection, site not specified 6 Pinky Peres. [address] [place] [address], [place]. tel:[phone] OFFICE/OUTPA TIENT VISIT, [facility], [address] [place] [address], Formerly named [facility], tel: [phone] [place] UTI (chief complaint) Urinary frequencyDysu marge 6 Jay Milagro. [address] [place] [address], Formerly named [facility], [place]. tel:[phone] OFFICE/OUTPA TIENT VISIT, [facility], [address] [place] [address], Formerly named [facility], [place] tel:[phone] [place] Sinus symptoms (acute) (chief complaint) Acute sinusitis, unspecified 5 Laron Abbasi. [address] [place] [address], [facility], [place]. tel:[phone] OFFICE/OUTPA TIENT VISIT, [facility], [address] [place] [address], Formerly named [facility], [place] tel: [phone] [place] Sore throat (chief complaint) Sinusitis, Acute 5 Justyn Lam. [address] [place] [address], [facility], . tel:[phone] OFFICE/OUTPA TIENT VISIT, [facility], [address] [place] [address], Formerly named [facility], [place] tel:[phone] [place] Sore throat (chief complaint) Sinusitis, Acute 5 Laron Abbasi. [address] [place], [place], [facility], [place]. tel:[phone] OFFICE/OUTPA TIENT VISIT, [facility], [address] [place] [address], Formerly named [facility], [place] tel:[phone] [place] UTI (chief complaint) UTI (urinary tract infection) 4 No Information OFFICE/OUTPA TIENT VISIT, [facility], [address] [place] [address], [address] [place] [address] tel:[phone] [place] Sinus symptoms (acute) (chief complaint) Acute maxillary sinusitis Dec 0 4 No Information OFFICE/OUTPA TIENT VISIT, [facility], [address] [place] [address] tel: [phone] [place] Sinus symptoms (acute) (chief complaint) Cough Sep- 0 4 No Information OFFICE/OUTPA TIENT VISIT, [facility], [address] [place] [address], [address] [place] [address] tel: [phone] [place] Sinus symptoms (acute) (chief complaint) Sinusitis, Acute Sep-0 5 4 No Information OFFICE/OUTPA TIENT VISIT, [facility], [address] [place] [address], [address] [place] [address] tel: [phone] [place] sinus symptoms (acute) (chief complaint) Allergic rhinitisSinus itis 4 Jay Milagro. [address] [place] [address], [address] [place] [address]. tel:[phone] OFFICE/OUTPA TIENT VISIT, [facility], [address] [place] [address], Formerly named [facility], tel:[phone] [place] dizzy (chief complaint) Meniere disorder 2 4 Pinky Peres. [address] [place] [address]. tel: [phone] OFFICE/OUTPA TIENT VISIT, [facility], [address] [place] [address], Formerly named [facility], tel:[phone] [place] sinus symptoms (acute) (chief complaint) Acute frontal sinusitisAcut e maxillary sinusitis 4 Longmeyer Larisa. [address] [place] [address]. tel:[phone] [facility], [address] [place] [address], Formerly named [facility], tel:[phone] [place] bladder infection (chief complaint) UTI (urinary tract infection) 3 Shira Matt. [address] [place] [address], Formerly named [facility], . [phone] OFFICE/OUTPA TIENT VISIT, [facility], [address] [place] [address], Formerly named [facility], tel:[phone] [place] UTI (chief complaint) Sinusitis, Acute 3 No Information OFFICE/OUTPA TIENT VISIT, [facility], [address] [place] [address], Formerly named [facility], tel:[phone] [place] sinus symptoms (acute) (chief complaint) Recurrent acute sinusitis 3 No Information [facility], [address] [place] [address], Formerly named [facility], tel:[phone] [facility] No Information 2 No Information Family History Family Member Type Diagnosis Age At Onset Father Problem (finding) stroke Payers Payer name Insurance type Covered green party ID Sherlyn melendezbossman(s) Medicare CI [id number] Social History Type Description Quantity Date Captured Comments Alcohol Use Details No Caffeine Use Details No Tobacco Use Status Never smoked tobacco 2022 Smoking Status Never smoker Non-Smoking Tobacco Use Details : No Details Available : No Details Available Sex Female Vital Signs Date / Time: Height Weight BMI Pulse Rate Blood Pressure Temperature Respiratory Rate Body Surface Area Head Circumference Head Circ. Percentile Wt./Luca. Percentile BMI percentile Pulse Ox Inhaled Ox 9:06 AM 63.00 in 78.018 kg (172.00 lbs) 30.4 7 kg/m eter (2) 88 /min 136/80 mm[Hg] 98.40 F 16 /min 96 % 21 % Chief Complaint And Reason For Visit From encounter dated '03/08/2022 08:39'. UTI (chief complaint). Description: Onset: 3 Days. Presenting/Initial symptoms include dysuria and frequency. Symptoms are associated with diabetes and recurring urinary tract infections. Aggravatingfactors include urination. Symptoms are not aggravated by baths, certain foods or sexual activity. A ssociated symptoms include dysuria, fatigue, frequency, hesitancy, nocturia, pressure and urgency. Pertinent negatives include flank pain, hematuria, nausea, pelvic pain, rash, retention, vaginal discharge or vomiting. Reason For Referral Reason For Referral No Information Plan Of Treatment Date Type Action Status Goal Td vaccine. Due on due Goal Influenza vaccine. Due on due Goal DEXA scan. Due on due Goal Pneumococcal vac cine. Due on due Goal Zoster vaccine. Due on due Goal Tdap. Due on due Goal Depression scree felisa. Due on due Goal Pneumococcal vac cine. Due on due Goal DEXA scan. Due on due Goal Tdap. Due on due Goal Influenza vaccine. Due on due Goal Td vaccine. Due on due Goal Zoster vaccine. Due on due Goal Depression scree felisa. Due on due Goal Depression scree felisa. Due on due Goal Td vaccine. Due on due Goal Tdap. Due on due Goal Influenza vaccine. Due on due Goal Pneumococcal vac cine. Due on due Goal Zoster vaccine. Due on due Goal DEXA scan. Due on 2 due Goal Pneumococcal vac cine. Due on due Goal Zoster vaccine. Due on due Goal Td vaccine. Due on due Goal Influenza vaccine. Due on Oc due Goal DEXA scan. Due on due Goal Depression scree felisa. Due on due Goal Tdap. Due on due Goal Zoster vaccine. Due on due Goal Tdap. Due on due Goal Td vaccine. Due on due Goal DEXA scan. Due on due Goal Influenza vaccine. Due on due Goal Pneumococcal vac cine. Due on due Goal Depression scree felisa. Due on due Goal DEXA scan. Due on due Goal Influenza vaccine. Due on due Goal Tdap. Due on due Goal Depression scree felisa. Due on due Goal Zoster vaccine. Due on due Goal Pneumococcal vac cine. Due on due Goal Td vaccine. Due on due Goal Influenza vaccine. Due on due Goal Td vaccine. Due on due Goal DEXA scan. Due on due Goal Zoster vaccine. Due on due Goal Depression scree felisa. Due on due Goal Pneumococcal vac cine. Due on due Goal Tdap. Due on due Goal Tdap. Due on due Goal Td vaccine. Due on due Goal Zoster vaccine. Due on due Goal Influenza vaccine. Due on due Goal Pneumococcal vac cine. Due on due Goal DEXA scan. Due on due Goal Depression scree felisa. Due on due Goal DEXA scan. Due on due Goal Zoster vaccine. Due on due Goal Depression scree felisa. Due on due Goal Tdap. Due on due Goal Influenza vaccine. Due on due Goal Td vaccine. Due on due Goal Pneumococcal vac cine. Due on due Goal Zoster vaccine. Due on due Goal Pneumococcal vac cine. Due on due Goal DEXA scan. Due on due Goal Depression scree felisa. Due on due Goal Td vaccine. Due on due Goal Influenza vaccine. Due on due Goal Tdap. Due on due Goal Depression scree felisa. Due on due Goal Pneumococcal vac cine. Due on due Goal Zoster vaccine. Due on due Goal Influenza vaccine. Due on due Goal Td vaccine. Due on due Goal Tdap. Due on due Goal DEXA scan. Due on due Goal Td vaccine. Due on due Goal Depression scree felisa. Due on due Goal Tdap. Due on due Goal Influenza vaccine. Due on due Goal Zoster vaccine. Due on due Goal DEXA scan. Due on due Goal Pneumococcal vac cine. Due on due Goal Tdap. Due on due Goal Zoster vaccine. Due on due Goal Influenza vaccine. Due on due Goal DEXA scan. Due on due Goal Pneumococcal vac cine. Due on due Goal Td vaccine. Due on due Goal Depression scree felisa. Due on due Goal Zoster vaccine. Due on due Goal Influenza vaccine. Due on due Goal DEXA scan. Due on due Goal Tdap. Due on due Goal Td vaccine. Due on due Goal Depression scree felisa. Due on due Goal Pneumococcal vac cine. Due on due Goal Td vaccine. Due on due Goal Tdap. Due on due Goal Pneumococcal vac cine. Due on due Goal Depression scree felisa. Due on due Goal DEXA scan. Due on due Goal Zoster vaccine. Due on due Goal Influenza vaccine. Due on Ma due Goal Depression scree felisa. Due on due Goal Tdap. Due on due Goal Zoster vaccine. Due on due Goal DEXA scan. Due on 0 due Goal Influenza vaccine. Due on Oc due Goal Td vaccine. Due on due Goal Pneumococcal vac cine. Due on due Goal Pneumococcal vac cine. Due on due Goal Zoster vaccine. Due on due Goal DEXA scan. Due on 0 due Goal Td vaccine. Due on due Goal Depression scree felisa. Due on due Goal Influenza vaccine. Due on Ap due Goal Tdap. Due on due Goal Td vaccine. Due on due Goal Tdap. Due on due Goal Zoster vaccine. Due on due Goal DEXA scan. Due on 0 due Goal Depression scree felisa. Due on due Goal Pneumococcal vac cine. Due on due Goal Influenza vaccine. Due on due Goal Influenza vaccine. Due on due Goal Td vaccine. Due on due Goal Zoster vaccine. Due on due Goal Pneumococcal vac cine. Due on due Goal Depression scree felisa. Due on due Goal DEXA scan. Due on 0 due Goal Tdap. Due on due Goal Pneumococcal vac cine. Due on due Goal Td vaccine. Due on due Goal Depression scree felisa. Due on due Goal Zoster vaccine. Due on due Goal DEXA scan. Due on 0 due Goal Tdap. Due on due Goal Influenza vaccine. Due on due Goal Pneumococcal vac cine. Due on due Goal Tdap. Due on due Goal Influenza vaccine. Due on due Goal Zoster vaccine. Due on due Goal Td vaccine. Due on due Goal Depression scree felisa. Due on due Goal DEXA scan. Due on 0 due Goal Zoster vaccine. Due on due Goal Pneumococcal vac cine. Due on due Goal DEXA scan. Due on 0 due Goal Tdap. Due on due Goal Depression scree felisa. Due on due Goal Influenza vaccine. Due on due Goal Td vaccine. Due on due Goal Tdap. Due on due Goal Pneumococcal vac cine. Due on due Goal Influenza vaccine. Due on due Goal Depression scree felisa. Due on due Goal DEXA scan. Due on 0 due Goal Zoster vaccine. Due on due Goal Td vaccine. Due on due Goal Td vaccine. Due on 19 due Goal Pneumococcal vac cine. Due on due Goal Depression scree felisa. Due on due Goal DEXA scan. Due on 9 due Goal Tdap. Due on due Goal Zoster vaccine. Due on due Goal Influenza vaccine. Due on due Goal Pneumococcal vac cine. Due on due Goal Zoster vaccine. Due on due Goal DEXA scan. Due on 9 due Goal Influenza vaccine. Due on due Goal Td vaccine. Due on 19 due Goal Tdap. Due on due Goal Depression scree felisa. Due on due Goal Td vaccine. Due on due Goal Influenza vaccine. Due on due Goal Depression scree felisa. Due on due Goal Tdap. Due on due Goal DEXA scan. Due on 9 due Goal Zoster vaccine. Due on due Goal Pneumococcal vac cine. Due on due Goal Pneumococcal vac cine. Due on due Goal Influenza vaccine. Due on due Goal Zoster vaccine. Due on due Goal Tdap. Due on due Goal DEXA scan. Due on 9 due Goal Td vaccine. Due on due Goal Depression scree felisa. Due on due Goal Zoster vaccine. Due on due Goal Depression scree felisa. Due on due Goal Influenza vaccine. Due on due Goal Td vaccine. Due on due Goal DEXA scan. Due on 9 due Goal Pneumococcal vac cine. Due on due Goal Tdap. Due on due Goal Td vaccine. Due on 19 due Goal DEXA scan. Due on 9 due Goal Pneumococcal vac cine. Due on due Goal Tdap. Due on due Goal Depression scree felisa. Due on due Goal Influenza vaccine. Due on due Goal Zoster vaccine. Due on due Goal DEXA scan. Due on 9 due Goal Pneumococcal vac cine. Due on due Goal Tdap. Due on due Goal Td vaccine. Due on due Goal Zoster vaccine. Due on due Goal Influenza vaccine. Due on due Goal Depression scree felisa. Due on due Goal DEXA scan. Due on 9 due Goal Tdap. Due on due Goal Depression scree felisa. Due on due Goal Influenza vaccine. Due on due Goal Zoster vaccine. Due on due Goal Td vaccine. Due on due Goal Pneumococcal vac cine. Due on due Goal Td vaccine. Due on due Goal Pneumococcal vac cine. Due on due Goal Depression scree felisa. Due on due Goal DEXA scan. Due on 9 due Goal Zoster vaccine. Due on due Goal Influenza vaccine. Due on due Goal Tdap. Due on due Goal DEXA scan. Due on 9 due Goal Zoster vaccine. Due on due Goal Influenza vaccine. Due on due Goal Pneumococcal vac cine. Due on due Goal Td vaccine. Due on due Goal Depression scree felisa. Due on due Goal Tdap. Due on due Goal Td vaccine. Due on 19 due Goal Influenza vaccine. Due on due Goal Tdap. Due on due Goal Depression scree felisa. Due on due Goal Zoster vaccine. Due on due Goal DEXA scan. Due on due Goal Pneumococcal vac cine. Due on due Goal Zoster vaccine. Due on due Goal Pneumococcal vac cine. Due on due Goal Tdap. Due on due Goal Influenza vaccine. Due on due Goal Depression scree felisa. Due on due Goal Td vaccine. Due on due Goal DEXA scan. Due on due Goal Pneumococcal vac cine. Due on due Goal Tdap. Due on due Goal Influenza vaccine. Due on due Goal Depression scree felisa. Due on due Goal Zoster vaccine. Due on due Goal Td vaccine. Due on due Goal DEXA scan. Due on due Goal DEXA scan. Due on due Goal Influenza vaccine. Due on due Goal Depression scree felisa. Due on due Goal Zoster vaccine. Due on due Goal Td vaccine. Due on due Goal Pneumococcal vac cine. Due on due Goal Tdap. Due on due Goal Tdap. Due on due Goal Pneumococcal vac cine. Due on due Goal Zoster vaccine. Due on due Goal Depression scree felisa. Due on due Goal Td vaccine. Due on 19 due Goal Influenza vaccine. Due on due Goal DEXA scan. Due on 9 due Goal Depression scree felisa. Due on due Goal DEXA scan. Due on due Goal Tdap. Due on due Goal Influenza vaccine. Due on due Goal Pneumococcal vac cine. Due on due Goal Zoster vaccine. Due on due Goal Td vaccine. Due on due Goal Influenza vaccine. Due on due Goal DEXA scan. Due on 9 due Goal Depression scree felisa. Due on due Goal Zoster vaccine. Due on due Goal Pneumococcal vac cine. Due on due Goal Td vaccine. Due on due Goal Tdap. Due on due Goal Pneumococcal vac cine. Due on due Goal Depression scree felisa. Due on due Goal Tdap. Due on due Goal Td vaccine. Due on due Goal Influenza vaccine. Due on due Goal DEXA scan. Due on 9 due Goal Zoster vaccine. Due on due Goal Pneumococcal vac cine. Due on due Goal DEXA scan. Due on 9 due Goal Zoster vaccine. Due on due Goal Depression scree felisa. Due on due Goal Influenza vaccine. Due on due Goal Td vaccine. Due on due Goal Tdap. Due on due Goal Depression scree felisa. Due on due Goal Td vaccine. Due on due Goal Influenza vaccine. Due on due Goal Tdap. Due on due Goal Pneumococcal vac cine. Due on due Goal DEXA scan. Due on 9 due Goal Zoster vaccine. Due on due Goal Tdap. Due on due Goal DEXA scan. Due on 9 due Goal Depression scree felisa. Due on due Goal Pneumococcal vac cine. Due on due Goal Zoster vaccine. Due on due Goal Influenza vaccine. Due on due Goal Td vaccine. Due on 19 due Goal Depression scree felisa. Due on due Goal Pneumococcal vac cine. Due on due Goal Zoster vaccine. Due on due Goal Td vaccine. Due on 19 due Goal Tdap. Due on due Goal DEXA scan. Due on 9 due Goal Influenza vaccine. Due on due Goal Td vaccine. Due on 19 due Goal Pneumococcal vac cine. Due on due Goal Influenza vaccine. Due on due Goal DEXA scan. Due on 9 due Goal Zoster vaccine. Due on due Goal Depression scree felisa. Due on due Goal Tdap. Due on due Goal Td vaccine. Due on 18 due Goal Tdap. Due on due Goal Zoster vaccine. Due on due Goal Influenza vaccine. Due on due Goal Pneumococcal vac cine. Due on due Goal DEXA scan. Due on 8 due Goal Depression scree felisa. Due on due Goal Depression scree felisa. Due on due Goal DEXA scan. Due on 8 due Goal Tdap. Due on due Goal Influenza vaccine. Due on due Goal Pneumococcal vac cine. Due on due Goal Zoster vaccine. Due on due Goal Td vaccine. Due on 18 due Goal Depression scree felisa. Due on due Goal Td vaccine. Due on 18 due Goal Tdap. Due on due Goal Influenza vaccine. Due on due Goal Zoster vaccine. Due on due Goal DEXA scan. Due on 8 due Goal Pneumococcal vac cine. Due on due Goal Tdap. Due on due Goal Zoster vaccine. Due on due Goal Depression scree felisa. Due on due Goal Td vaccine. Due on 18 due Goal Pneumococcal vac cine. Due on due Goal DEXA scan. Due on 8 due Goal Influenza vaccine. Due on due Goal Influenza vaccine. Due on due Goal Zoster vaccine. Due on due Goal Pneumococcal vac cine. Due on due Goal DEXA scan. Due on 8 due Goal Tdap. Due on due Goal Depression scree felisa. Due on due Goal Td vaccine. Due on 18 due Referral Ordered: X-RAY EXAM CHEST 1 VIEW ordered Referral Ordered: referred to Mental Health Counselor (related to Depression) ordered Referral Ordered: MRI BRAIN W/O & W/DYE Appointment date/timeframe: 02/05/2019 ordered Referral Ordered: CT ABD & PELVIS W/CONTRAST ordered Referral Referred To: Tricia Sharif [address] [place] [address], [phone] Ordered: Referrals: Allopathic & Osteopathic Physicians : Internal Medicine : Endocrinology, Diabetes & Metabolism. Tricia Sharif. Evaluate and treat Appointment date/timeframe: 01/24/2019 ordered Referral Ordered: CT MAXILLOFACIAL W/O DYE ordered Referral Ordered: LOWER EXTREMITY ALEXANDREA DOPPLER ordered Referral Ordered: ELECTROCARDIOGRAM, COMPLETE ordered Referral Ordered: SCR MAMMO BI INCL CAD ordered Referral Ordered: X-RAY EXAM CHEST 2 VIEWS ordered Referral Ordered: Referral: ENT. Evaluate and treat. Appointment date/timeframe: 09/08/2012 ordered Patient Education Urinary Tract Infection in Women: Car~ completed Patient Education Interstitial Cystitis: Care Instructi~ completed Patient Education Candidiasis: Care Instr uctions completed Patient Education Urinary Tract Infection in Women: Car~ completed Patient Education Urinary Tract Infection in Women: Car~ completed Patient Education Bronchitis: Care Instru ctions completed Patient Education Sinusitis: Care Instruc tions completed Patient Education Acute Low Back Pain: Ex ercises completed Patient Education Sinusitis: Care Instruc tions completed Patient Education Cellulitis: Care Instru ctions completed Patient Education Macrobid 100 mg capsule completed Patient Education Vertigo: Care Instructi ons completed Patient Education Vertigo: Exercises comp leted Patient Education Macrobid 100 mg capsule completed Patient Education Sinusitis: After Your V isit completed Patient Education Learning About Mood Dis orders completed Patient Education clonidine HCl 0.1 mg ta blet completed Patient Education Xanax 0.25 mg tablet co mpleted Patient Education hydrocortisone 10 mg ta blet completed Patient Education 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 5 mg tablet completed Future Order: Lab Order URINE CU LTURE ([id number]), Ordered on: Ordered Future Order: Lab Order CBC W/ D iff ([id number]), Sent on: Sent Future Order: Lab Order BMP ([id number]), Se nt on: Sent Future Order: Lab Order URINALYS IS WITH REFLEX CULTURE ([id number]), Sent on: Sent Future Order: Lab Order URINALYS IS WITH REFLEX CULTURE ([id number]), Ordered on: Ordered Future Order: Lab Order CBC W/ D iff ([id number]), Ordered on: Ordered Future Order: Lab Order CMP ([id number]), Or dered on: Ordered Future Order: Lab Order LIPID PA SAM (), Ordered on: Ordered Future Order: Lab Order TSH ([id number]), Or dered on: Ordered Future Order: Lab Order URINALYS IS WITH REFLEX CULTURE ([id number]), Collected on: Ordered Future Order: Lab Order URINE CU LTURE ([id number]), Sent on: Sent Future Order: Lab Order URINALYS IS WITH REFLEX CULTURE ([id number]), Ordered on: Ordered Future Order: Lab Order URINE CU LTURE ([id number]), Collected on: , Sent on: Sent History Of Present Illness Encounter Date Complaint History Of Prese nt Illness UTI Onset: 3 Days. P resenting/Initial symptoms include dysuria and frequency. Symptoms are associated with diabetes and recurring urinary tract infections. Aggravating factors include urination. Symptoms are not aggravated by baths, certain foods or sexual activity. Associated symptoms include dysuria, fatigue, frequency, hesitancy, nocturia, pressure and urgency. Pertinent negatives include flank pain, hematuria, nausea, pelvic pain, rash, retention, vaginal discharge or vomiting. UTI (comments) Ilsa is an 81 -year-old female who presents to the clinic with urinary complaints. Symptom onset was 3 days ago. She complains of burning with urination, urinary frequency, urinary urgency, and suprapubic pain and pressure. She has history of recurring urinary tract infections. She sees a urologist in [place]. She offers no other concerns or complaints at this time. UTI Presenting/Initi al symptoms include burning, dysuria, frequency, lower back pain and urgency. Denies aggravating factors. Symptoms are relieved by TYLENOL. Additional information: pt took one Macrobid last night- states it helped. UTI (comments) (Patient is an [age]-year-old female with a medical history of hypertension, hyperlipidemia, adrenal insufficiency, interstitial cystitis, and PE that presents to the clinic with complaints of painful urination, bilateral lower back tenderness, suprapubic tenderness, and urinary frequency for the past 2 days. Aggravating factors urination, relieving factors none, treatments tried been she took 1 Macrobid she had at the house as well as a Azo. Primary care physician ERASMO. Is also followed by Dr. Shahrzad Carreno urologist for management of her interstitial cystitis. She denies chest pain, shortness of breath, fever, vomiting, gastrointestinal issues such as bloody stools, STI concerns, or any other acute symptom.) R EYE SWELLING (comments) 81 YO F, WITH HX OF ADRENAL INSUFF- ON ORAL HYDROCORTISONEHAS HAD ALLERGIC SYMPTOMS X FEW WEEKSOTC EYEDROPS HAVE HELPEDC/O MILD SWELLING OF BOTH EYELIDS/OCCASIONAL WHEEZING W/O SOB R EYE SWELLING Pt presents with complaints of swelling of the right eye for 4-5 days. Pt thinks it might be allergy related. Pt denies irritation. WHITE SPOTS ON TONGUE WHITE SPOTS ON TONGU E (comments) Ilsa is a 81-year old female who presents to the clinic today with complaint of white spots on tongue. She is complaining of white patches, pain with eating. She states that she has had thrush before after taking an antibiotic. She is also wanting a refill on an eye ointment that was prescribed to her several years ago by Dr Matos. She states that he prescribed her eye ointment for swelling, watery, itchy eyes. She states that she cannot remember the name of the eye ointment but states that she had it filled at [facility] in [place] or [facility] in [place]. She offers no other concerns or complaints at this time. UTI (comments) Ilsa is a 81- year old female who presents to the clinic today with urinary complaints. Symptom onset was 11/14/2021. She complains of chills, body aches, nausea, urinary frequency and urgency. She has a history of UTIs, interstitial cystitis and she sees a urologist in [place], [place]. She offers no other concerns or complaints at this time. UTI UTI (comments) Ilsa is a 81- year old female who presents to the clinic today with urinary complaints. She was seen in the ED on 09/17/2021 and was diagnosed with UTI with hematuria. She states that she was prescribed Macrobid. She states that she has been taking antibiotic as prescribed but has not noticed an improvement in symptoms. She has a history of UTIs, interstitial cystitis and sees a urologist in [place], [place]. She complains of urinary frequency, pressure. She offers no other concerns or complaints at this time. UTI Onset: 5 Days. T he severity of the problem is mild. The problem has worsened. Presenting/Initial symptoms include burning, frequency and hematuria. Denies aggravating factors. Denies relieving factors. Additional information: complaints of pressure when urinating- put on Macrobid in the ER . SINUS INFECTION Patient states t hat she was recently on an amoxicillin for her sinuses. Symptoms include ear ache, sneezing, cough. OTC medications include Loraine. Denies any known exposure to anyone who has been sick. UTI Onset: 4 Days. P resenting/Initial symptoms include burning, lower back pain, nocturia, suprapubic pain and urgency. Relieving factors additional comments: Cystex. Associated symptoms include vaginal discharge. COUGH Onset: 4 days ag o. The patient describes the cough as productive (of yellow sputum). The problem has not changed. There are no aggravating factors. There are no relieving factors. Associated symptoms include chills, cough, dyspnea on exertion, fatigue, nasal congestion, post-nasal drainage, rhinorrhea, sore throat and wheezing. Pertinent negatives include dyspnea, fever, hoarseness, rhinitis and sinus pressure. Additional information: PT PRESENTS WITH A COUGH SOB, BLOWING YELLOW MUCUS FROM NOSE, COUGHING UP YELLOW MUCUS. NOTHING HAS HELPED. WAS PRESCRIBED CEFDINIR 300 MG ON 02-10-2021 AND PT STATES IT HAS NOT HELPED. RAPID COVID NEGATIVE. RAPID FLU NEGATIVE. COUGH (comments) Symptoms starte d 4 days ago. She had a negative rapid COVID the day symptoms started. She feels no better. Denies fever but has had chills and body aches. She has not had a COVID vaccine. H/O COVID about a year ago. She had a flu vaccine and the pneumonia vaccines. Cold symptoms (comments) Patient presents today with complaints of a cough that is productive of yellow sputum. She also reports chills, sinus pressure, and some ear pressure. She denies any fever, nasal congestion, or sore throat. She states the symptoms started last night and are getting worse. Cold symptoms The patient desc ribes the cough as moist and productive (of yellow sputum). Relieving factors include antihistamines and OTC cough syrup. Associated symptoms include cough and fatigue. Pertinent negatives include chills, fever, nasal congestion and sinus pressure. BACK PAIN Onset: 1 day ago . Severity level is 6. It occurs persistently. Location of pain is middle back.There is no radiation of pain. The patient describes the pain as sharp and stabbing. Symptoms are aggravated by any kind of movement. Symptoms are relieved by massage. Additional information: Pt was in the [facility] most of the night last night due to back pain, pt states she had lung cancer few years ago, and they removed mid lobe, she states the pain is in this same area, she states she was told it could be scar tissue, or arthritis. hpi (Ilsa Bryanbossmanrod presents to the clinic with complaints of right side thoracic back pain for a couple of weeks. She presented to the ER at 3 am this morning for the same complaint, diagnosed with musculoskeletal back pain and UTI. She is treated with Augmentin by her PCP Dr. Wolfe in [place], [place] and sees a urologist for management of complicated urinary tract infections. She states that she was told that she could only be given 1 [place] 5 pill while in there and that they could not give her anything else for pain at discharge. She plans on following-up with her PCP within 5 days, so we discussed the option of [place] 5 day course. She has contraindications such as: hypertension and history of pulmonary embolism. Finally, the patient's PHQ9 is 7 today, indicating mild depression. She rates her pain 6-7 out of 10 day.) Sinus symptoms (acute) Onset: 2 Days. The severity of the problem is mild. The problem has worsened. Pertinent/initial symptoms include sinus pressure. Associated symptoms include cough, headache, nasal drainage and sinus pressure. Additional information: states that she is having body aches, cough, runny nose, watery eyes. medications include Tylenol and over Laor (nasal decongestion), which didn't help her symptoms. denies exposure. states that she checks her BS and it was running 106 and today it was 160. Sinus symptoms (acut e) (comments) Ilsa Palmer presents to the clinic with c/o sinus pressure, headache, sore throat, nasal congestion, and dry cough that have been worsening for the past two days. She denies fever, chills, chest discomfort, shortness of breath. She reports a history of TTDM and allergic rhinitis. She has been taking acetaminophen and loratadine for her symptoms without any significant relief. She denies known exposure to COVID-19 and has had COVID-19 last winter. She also reports a history of recurrent sinus infections. ARM REDNESS/SWELLING (comments) 79 year old female patient presents with a2 day long history of redness, pruritis, and warmth to her left forearm. Aggravating factors include none. Relieving factors include none. ARM REDNESS/SWELLING Pt presents with complaints of left arm redness and swelling. Pt states this has been going on for two days. Pt denies known injury. Pt denies pain. Pt states the area itches.I have to call [facility] to confirm medication list. Pt does not know and does not have list with her. UTI (comments) Ilsa Palmer presents to the clinic with c/o dysuria, suprapubic pressure, urinary frequency, and small, occasional hematuria. She has a known history of recurrent UTIs and sees Urology. She last saw Dr. Pierre in May 2020 and states she had a procedure at that time. She states her presenting symptoms are consistent with her history of UTIs. She has taken Cystex OTC with mild symptomatic relief. UTI Onset: 6 Days. T he severity of the problem is moderate. The problem has worsened. The symptoms are constant. Presenting/Initial symptoms include frequency, lower back pain, suprapubic pain and urgency. Denies aggravating factors. Symptoms are relieved by Cystex. Associated symptoms include fatigue and hematuria. Additional information: pt states she has an ulcer on her bladder, pt describes that she has a generalized not feeling good. COVID TEST FOR PROCEDURE Pt pres ents today for a COVID test for a procedure. ORDERED BY DR SHAHRZAD CARRENO VERTIGO Onset was 1 day ago. Severity is moderate. The problem is worsening. It occurs occasionally. The patient describes it as (an) floating, imbalance, light-headed and spinning. Symptom is aggravated by getting out of bed and rapid movement. Relieving factors include medication (Dramamine) and rest. Associated symptoms include incoordination and weakness. Pertinent negatives include chest pain, diplopia, ear drainage, fever, headache, hearing loss, loss of consciousness, nausea, neck stiffness, otalgia, palpitations, paresthesia, seizures, slurred speech, tinnitus, vision loss and vomiting. Additional information: states she went to a clinic and they gave her Mesaline which she hasn't taken any. states she took Dramamine which helped with some of her dizziness. VERTIGO (comments) Ilsa Stein od presents to the clinic with c/o intermittent episodes of vertigo for the past two days. She reports a history of vertigo and feels that this presentation is consistent with previous and she is requesting a prescription for Meclizine. She took OTC Dramamine and states this did improve her symptoms. She denies headache, chest discomfort, shortness of breath. Her symptoms are made worse by position changes. UTI (comments) 79 year old guera schneider patient presents for a 3 day long history of dysuria, lower back pain, lower abdominal pain, urinary frequency, pelvic pain, and pelvic pressure. Patient states that the pain is constant. Patient describes the pain as burning. Severity of the pain is rated 5/10. Aggravating factors include urinating. Relieving factors include Cystex. Patient states that she sees Dr. Pierre in [place] for treatment of a bladder ulcer and interstitial cystitis, she sees him every 3-4 months for bladder irrigations, her last appointment was in September of 2019. Patient states that she has waited too long to go back in and usually she gets a UTI if she waits too long. Patient plans to call Dr. Pierre today for an appointment. UTI Onset: 3 Days. P resenting/Initial symptoms include burning, dysuria and lower back pain. Associated symptoms include abdominal pain, frequency, pelvic pain and pressure. Additional information: PT REPORTS SHE HAS ULCER ON BLADDER. aching all over Pt states that h er body began aching yesterday and has continued to get worse today. Pt has taken Tylenol at 10:30 this morning without relief. Pt has had sinus problems and cough for the past few days. Patient states that she always gets body aches when she has a sinus infection, she has pain in her face mainly in the maxillary area on both sides, she has postnasal drainage, is unable to breathe out of the right side of her nose, and has just an occasional cough with no shortness of breath or trouble breathing. She took some Claritin-D and that did help a little bit. She states she gets this a couple times a year.Pt states she has been staying home except for going to [facility] and wore a mask while there. BLOOD PRESSURE PT PRESENTS FOR BLOOD PRESSURE ISSUES. STATES THAT HER BLOOD PRESSURE MEDICATION MAKES HER SLEEP. PT WONDERS IF SHE IS DEPRESSED. DEPRESSION SCREENING INDICATES THAT SHE IS. BLOOD PRESSURE (comments) PT IS STRESSED ABOUT HER BP OF 150/90sNO HEADACHENO EPISTAXISNO NECK PAIN OR STIFFNESSPT IS DEPRESSED AT TIMES-NO HALLUCINATIONS NO SUICIDAL IDEATIONS ELEVATED BLOOD PRESS URE (comments) NO C/O HEADACHE OR EPISTAXISHAS ANXIETY ABOUT HER BP ELEVATED BLOOD PRESSURE Pt prese nts for having recent elevated blood pressures for the past 3 days. The highest BP she has gotten at home was 190/93 on an automatic BP cuff at home. IP F/U The symptoms beg an 5 days ago. WAS IN THE HOSPITAL ALL WEEKEND FOR GASTRITIS. SYMPTOMS HAVE SUBSIDED. PATIENT STILL DOESNT FEEL WELL BECAUSE OF BLOOD PRESSURE. SHE DOESNT FEEL LIKE HER BP MEDS ARE HELPING. IP F/U (comments) 78 YO F, WITH HX OF ADRENAL INSUFFICIENCY-ON ORAL HYDROCORTISONE REPLACEMENT THERAPYRECENTLY ADMITTED TO [facility] FOR GASTROENTERITIS-WHICH HAS IMPROVEDNO LOOSE STOOLS X 3 DAYS- NO FEVERHAS HEMORRHOIDS-WHICH WERE BLEEDING EARLIERSHE HAS HAD RECURRENT UTIs- WITH A BLADDER LESION/ULCERATION-BEING TREATED BY DR FERREIRAHE IS SCHEDULED FOR CYSTOSCOPIC PROCEDURE THIS FRIDAYSHE HAS HAD INCREASED STRESS AND INSOMNIA- WELL INCREASED SYTOLIC BP DURING AND AFTER THE HOSPITALIZATIONNO HEADACHE OR EPISTAXISBP NOW IS 136/70-AUDIBLE TAKEN BY MYSELFSHE WAS ADVISED TO PROCEED WITH THE UROLOGIC PROCEDURESHE SHOULD CONTINUE SICK DAY DOSE OF HYDROCORTISONE THROUGH TUESDAY-3 DAYS AFTER THE PROCEDURE follow up (comments) 78 yo f, wi th hx of recurrent UTI, RECENTLY DIAGNOSED ADRENAL INSUFFICIENCY AND PULM EMBOLITREATED FOR UTI-LAST WEEK WITH LEVAQUIN DUE TO MULT RESISTANCE, AND ALLERGIESHE TOOK SICK DAY DOSES OF HYDROCORTISONE LAST WEEKSHE FEELS BETTER GENERALLY -WON'T REQUIRE ADDITIONAL SICK DAY DOSES-BUT SHE HAS TO CONTINUE DAILY HYDROCORTISONE DIRECTED SHE HAS VAGUE DISCOMFORT IN SUPRAPUBIC/BACK AREA-WHICH IMPROVED WITH AZONO FEVER OR FLANK PAIN- NO HEMATURIAANOTHER URINE CULTURE WAS SENT TODAY follow up FU from last ángela jimenez appointment FOLLOW UP Follow up for ex haustion and low energy. Sleeping better than she was. She is breathing better too. FOLLOW UP (comments) C/O INCREAS ED WEAKNESSFACIAL SWELLING-W/O PAIN OR FEVERSKIN CHANGE/ECCHYMOSIS IS MORE PROMINENT WELL-W/O REDNESS OR INFECTIONNO DIZZINESS SINUS ISSUES The symptoms beg an 4 days ago. The symptoms are reported as being moderate. The symptoms occur constantly. She states the symptoms are chronic. SINUS ISSUES (comments) Ilsa Palmer presents with c/o nasal congestion, sinus pressure, weakness, PND, and cough for the past 4 days. Of note, she completed a 7 day course of Levofloxacin for UTI on 02/18/19. Patient states her symptoms began while still taking the Levofloxacin. She denies fever, chills, chest pain, and shortness of breath. Prior to the course of Levofloxacin, she had been on a course of Augmentin. Patient states she has a history of chronic sinusitis. She used to see Dr. Matos for this. Reports she is especially concerned today due to feeling quite weak. She has been caring for her , who had a knee surgery on 02/06/19. She saw her PCP in our clinic last week and she states he was recommending she be admitted at that time due to her condition overall, but she declined at that time. FOLLOW UP PT PRESENTS FOR FOLLOW UP FROM RECENT ILLNESS. FOLLOW UP (comments) SEEN FOR HEMATURIA-WHICH HAS IMPROVEDPT IS ON ELIQUISNO DYSURIA OR FEVER UTI (comments) Patient states s he woke up this morning and just felt poorly. Diffuse body aches. Abdominal discomfort, backache. She noted blood in her urine today [recently started Eliquis]. Some urinary frequency but no dysuria. I was reviewing her records and noticed she was recently started on Hydrocortisone for adrenal insufficiency. When I asked her about her steroids she is confused as to what I am talking about and at first states she is not on any steroids. After discussing with her the recent hospital visit she suddenly remembers and states oh I stopped that I didn't see that it was making any difference . I explained to the patient once again that she can not stop her hydrocortisone for any reason accept under the guidance of physician. She was also started on Eliquis recently for PE. She denies any fever. She does seem a little more confused today than when I have seen her in the past mixing up her words at times. She also reports loose stools the last few days. She is taking Augmentin currently for sinus infection . She started this about a week ago. She states around this time is when she stopped the Hydrocortisone. UTI Onset: 2 Days. T he severity of the problem is moderate. The problem has worsened. The symptoms are constant. Presenting/Initial symptoms include abdominal pain, flank pain, frequency, lower back pain, nausea and urgency. Associated symptoms include abdominal pain, fatigue, frequency, hematuria and nausea. Pertinent negatives include dribbling, dysuria, fever, flank pain, rash or vomiting. BODY ACHES Onset: 2 days ag o. It occurs constantly. Location: PAIN ALL OVER. The pain is aching. Context: there is no injury. There are no aggravating factors. There are no relieving factors. Additional information: PT DESCRIBES A FLU-LIKE WHOLE BODY ACHE. HEADACHE. HAS BEEN TAKING TYLENOL WITH SOME RELIEF. BODY ACHES (comments) 78 YO F, W ITH SECONDARY ADRENAL INSUFFICIENCY DUE TO RECENT STEROID [facility]ADM[facility] [place] [facility] PULM EMBOLI-STARTED ON ELIQUISSEEN BY DR ATIF ARRIAZA AT END[facility]CRINE CLINICADVISED TO TAKE HYDROCORTISONE 20 MG AT 9AM AND 10 MG AT 3 PM DAILYINCREASE HYDROCORTISONE TO 40/20 AT 9AM/3PM DUE TO COLD/MILD ILLNESSINCREASE TO 60/30MG DUE TO FEVER DUE TO FEVER >100, FLU, PNEUMONIA, UTI, OR OTHER SIGNIFICANT ILLNESS OR INJURY OR IF SHE HAS SURGERY REQUIRING GEN ANESTHESIA-AND INFORM MYSELF AND ENDOCRINOLOGISTGO TO EMERGENCY ROOM WITH INSTRUCTIONS GIVEN TO PT, IF UNABLE TO TAKE PILLS FOR ANY REASONSEE SCANNED INSTRUCTIONS DATED JAN 30, 145 PM LAB RESULT//FOLLOWUP LAB RESULT//FOLLOWUP (comments) CORTISOL LEVEL IS 2.3 DONE 01/11/2019- 0850 AM EYE ISSUES PT STATES THAT S HE IS EXPERIENCING VISION PROBLEMS. PT STATES THAT SHE IS EXPERIEINCING A GLAZE OVER HER VISION. PT STATES THAT VISION DOES NOT IMPROVE WITH GLASSES. EYE ISSUES (comments) 78 YO F, S /P MULT STEROID INJECTIONS RECENTLY-SHE ALSO USES FLUTICASONE NASAL SPRAYAFTER WHICH SHE DEVELOPED FACIAL SWELLING-DERMATITIS OF FACE/FOREARMSNO DIZZINESSC/O SWELLING AT BOTH UPPER EYELIDSFEELS LIKE THERE IS A FILM OVER HER EYES-EVERHE HAS HAD CATARACT SURG BY DR RONDON IN PAST Sinus symptoms (acute) Onset: 2 Weeks. Pertinent/initial symptoms include facial pain, facial pressure and sinus congestion. Symptoms are not associated with recurrent sinus infections. Associated symptoms include cough, headache and otalgia. Pertinent negatives include fever. Additional information: PT PRESENTS WITH SINUS SYMPTOMS, NOSE IS BLOCKED. BOTH EARS HURTING TODAY. NO SORE THROAT. PT FEELS IF SHE HAS A FILM OVER HER EYES. NAUSEA Onset: 1 day ago . Duration is 1 Day. It occurs persistently. The problem is worsening. Context: SUDDEN ONSET NOT TRIGGERED BY ANYTHING. Symptom is aggravated by HAS NOT EATEN SINCE THIS MORNING. Denies relieving factors. Associated symptoms include diarrhea, lightheadedness and weakness. Pertinent negatives include dizziness, fever, headache and vomiting. NAUSEA (comments) Ilsa meehan presents with c/o just not feeling well for the past day. She states she feels flushed and is nauseated. Also reports an increase in bowel movements, but she states these are formed, brown stools and are normal for her, they are simply increased in frequency. States she has had three formed, brown stools today. She denies any vomiting and states that she has a good appetite and feels hungry. She denies any urinary symptoms. Denies cough, shortness of breath, chest pain, heartburn, paresthesias, headache, and states her sinus symptoms are improving. She has been taking Doxycycline since 10/28/18 and has three doses left in the course. She has had no blood in her stools. SINUS F/U (comments) SINUS SYMPT OMS HAVE IMPROVED-AFTER DOXYCYCLINEDECREASED FACIAL SWELLING AND PAINC/O RASH BOTH ARMS-W/O ITCHING-UNSURE OF TRAUMA-PLANS TO SEE HER DERMATOLOGISTALSO C/O BILAT ANKLE SWELLING- NO SOB OR WHEEZING SINUS F/U Pt presents for sinusitis follow up. Pt states the doxycycline has helped. Pt states she is feeling better. Pt states she is fatigue. Sinus symptoms (acute) Onset: 2 Days. The severity of the problem is moderate. The problem has worsened. The symptoms are constant. Both sides are affected. Pertinent/initial symptoms include sinus congestion, sinus pain and sinus pressure. Symptoms are associated with environmental allergies. Symptoms are not associated with asthma, dental infection, recent air travel, recent URI, recurrent sinus infections, smoke exposure, tobacco use or trauma. Aggravating factors include leaning forward and lying down. Associated symptoms include cough, postnasal drainage and sinus pressure. Pertinent negatives include anosmia, dental disease, deviated septum, fever, halitosis, headache, immunosuppression, nasal drainage, nasal obstruction, orbital swelling, otalgia, rhinorrhea, sore throat, tooth pain or tooth sensitivity. UTI UTI (comments) Notably, the pat jeremy states that her UTI symptoms have improved. She spoke with her urologist regarding her recent UTI and treatment and they were in agreement to the plan of care. She is planning for a bladder surgery in November. Sinus symptoms (acut e) (comments) Patient is currently taking augmentin for a UTI (recurrent problem) and has two days left of this treatment. During the antibiotic use she began experiencing sinus symptoms that include a headache, maxillary sinus pressure/pain, nasal congestion. She has been using a netipot without relief of her symptoms. Denies fever, shortness of breath, productive cough, or exposure to known illness. UTI Onset: 2 Days. T he severity of the problem is mild. The problem has worsened. The symptoms are constant. Symptoms are associated with recurring urinary tract infections. Symptoms are not associated with diabetes, or recent catheterization. Aggravating factors include urination. Symptoms are not aggravated by baths, certain foods or sexual activity. Denies relieving factors. Associated symptoms include abdominal pain, flank pain, frequency, pelvic pain and urgency. Pertinent negatives include dribbling, dysuria, fatigue, fever, hematuria, hesitancy, nausea, nocturia, pressure, rash, retention, vaginal discharge or vomiting. UTI (comments) Ilsa Palmer presents with c/o dysuria, urinary frequency, and body aches for the past two days. She has a history of a bladder ulcer, for which she is scheduled to have a procedure to remove 12/01/18. She has a urologist with [facility]. She denies fever, but states she has had chills and generalized body aches. Denies any david hematuria. rash The patient pres ents for rash. This episode began 2 weeks ago. Affected area(s) include both arms. The patient describes the affected area(s) as red. The symptoms are not associated with contact with chemicals, contact with plants, new perfume, new skin soaps/lotions, rash began before age 1, recent medicines, recent travel and stress. Associated symptoms include erythema (skin) and fatigue. Pertinent negatives include pharyngitis. Additional information: Pt states she had a pneumonia vaccine about two weeks ago when rash started. Pt is unsure of what pneumonia vaccine she received. Sinus symptoms (acut e) (comments) Patient reports a history of allergic rhinitis and chronic sinusitis. She has been using OTC nasal flushes, oral antihistamines, and Flonase. She has had no significant relief. Sinus symptoms (acute) Onset: 1 Day. The severity of the problem is moderate. The problem has worsened. Both sides are affected. Pertinent/initial symptoms include sinus congestion, sinus pain and sinus pressure. Symptoms are associated with environmental allergies. Symptoms are not associated with tobacco use. Aggravating factors include allergens, leaning forward and lying down. Associated symptoms include cough, fever, headache, otalgia, postnasal drainage and sinus pressure. Pertinent negatives include anosmia, dental disease, deviated septum, halitosis, immunosuppression, nasal drainage, nasal obstruction, orbital swelling, rhinorrhea, sore throat, tooth pain or tooth sensitivity. rash (comments) Patient also rep orts that she has had red lesions to her bilateral forearms and bilateral cheeks for the past 2 weeks. She states that she first noticed these after receiving a pneumococcal injection. Otherwise the only other new medication that she has received is Caltrate. She states that the lesions are significantly improving. She denies fever, chills, weight loss, decrease in appetite, nausea, vomiting, diarrhea, shortness of breath, wheezing. She denies having any swelling in her extremities. COUGH (comments) The patient was put on Augmentin for sinusitis on July 04 and given Tessalon Perles for her cough. She states that she ended up lying in bed for for 5 days with severe chills, myalgia, fatigue, and fever up to 102. Overall her symptoms have improved however she still has lack of energy and continued productive cough with yellow sputum. She has been able to sleep at night. The cough is very persistent throughout the day and is very bothersome to her. Nothing [id number] seems to be working. The Tessalon Perles do not seem to be working. She has not had fever for at least 3 days may be 4. COUGH Severity: 9. The patient describes the cough as hacking, moist, productive (of yellow sputum) and lung cancer in 2008 in remission. It occurs persistently. The problem has not changed. Context: allergies and smoke exposure. Symptoms are aggravated by allergens. Relieving factors include Augmentin did help but not the cough. Associated symptoms include cough, fatigue, fever, hoarseness, nasal congestion, night sweats, post-nasal drainage, sinus pressure, sore throat, wheezing and earache and temp of 102.0. Additional information: Patient has history of pneumonia. Cold symptoms (comments) NO URIN MENG SYMPTOMSHAS URI/SINUS CONGESTION/[id number]-YELLOWI SHNO PLEURITIC PAIN Cold symptoms Onset: 4 days ag o. The patient describes the cough as productive (of yellow sputum). There are no aggravating factors. Relieving factors include rest. Associated symptoms include chills, cough, dyspnea, dyspnea on exertion, fatigue, fever, hoarseness, nasal congestion, sinus pressure, sore throat and wheezing. Pertinent negatives include epistaxis, heartburn, hemoptysis, night sweats, pleuritic pain, post-nasal drainage, rhinitis, rhinorrhea and weight loss. Additional information: PT states that she has had SOB since her surgery on her bladder on June 20 2018. PT states that the surgery was for an ulcer in bladder. UTI Onset: 1 Day. Th e problem has worsened. Presenting/Initial symptoms include abdominal pain, burning, flank pain, frequency, lower back pain, nausea and suprapubic pain. Symptoms are associated with recent catheterization and recurring urinary tract infections. Symptoms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 symptoms include dysuria, frequency and lower back pain. Additional information: Pt has also had a headache for 2-3 days and states the left side of her face and head hurt. Functional Status Date Functional Assessmen t No Information Instructions Date Instruction Additional Infor demetrio Urine dip results di scussed in clinic.Rest. Increase fluids. Take antibiotic as prescribed.Wipe front to back. Void before and after intercourse. Avoid all products that can alter vaginal pH. Discussed red flags to be aware of and when to seek emergency treatment. Follow up with PCP or return to clinic if no improvement, symptoms worsen. Patient agreeable with plan and voices no concerns at this time. Related to Acute cystitis with hematuria Take antibiotic as d irected, take all the medication even if improved. Drink plenty of fluids especially water, wipe front to back, avoid douching, empty the bladder before and immediately following sexual intercourse, and avoid tight fitting clothing. Avoid irritants such as scented feminine products, scented pads or tampons, and scented bath soaps. Related to Urinary symptom or sign TAKE ZYRTEC DIREC FAMILIA, CONTINUE ALBUTEROL PRN Related to Seasonal allergies OBSERVE FOR WORSENIN G OR PERSISTENT SYMPTOMS Related to Seasonal allergies OBSERVE FOR SIGNS OF EMERGENCY DISCUSSED-GO TO ER Related to Seasonal allergies Use nystatin as pres cribed.Soft foods. Avoid acidic foods.Follow up with PCP or return to clinic if no improvement, symptoms worsen. Related to Thrush Urine dip results di scussed with patient in clinic. Will culture and will call patient with results.Rest. Increase fluids. Take antibiotic as prescribed.Wipe front to back. Avoid all products that can alter vaginal pH. Discussed red flags to be aware of and when to seek emergency treatment. Follow up with PCP or return to clinic if no improvement, symptoms worsen. Patient agreeable with plan and voices no concerns at this time. Related to Acute cystitis with hematuria Stop Macrobid.Start Augmentin.Increase fluids.Wipe front to back.Follow up with urologist tomorrow.Follow up with PCP or return to clinic if no improvement, symptoms worsen. Related to Acute cystitis with hematuria Stop Cefdinir. Start Azithromycin. Increase your Hydrocortisone as directed by your accounting teacher. Finish all antibiotics as prescribed. Related to Bronchitis Increase fluids. Dutch id known triggers. Mucinex DM may help. Related to Bronchitis Observe for medication side effe cts Related to Acute sinusitis, unspecified Cool mist humidifier to bedroom at night Related to Acute sinusitis, unspecified Patient instructed o n use of Flonase or Nasacort. Related to Acute sinusitis, unspecified Educated on use of antibiotic Re lated to Acute sinusitis, unspecified RTC for symptoms korin t persist or worsen Related to Acute sinusitis, unspecified Increase fluids Related to Acute sinusitis, unspecified OTC sinus medications as discuss ed Related to Acute sinusitis, unspecified Take all medications directed. Monitor for worsening signs and symptoms, report them as necessary. Follow-up with your primary care provider for maintenance therapy. Narcotics, also called opioid pain relievers, are used only for pain. Do not drive or operate heavy machinery while taking muscle relaxants. Related to Acute right-sided thoracic back pain Avoid exposure to to bacco smoke and/or polluted air. Consider nasal/sinus rinses with saline. Consider use of jiuj-yjb-baihmlu mucolytic such as guaifenesin. Maintain adequate clear fluid intake. Maintain adequate rest. May use warm compresses to sinus area(s). The patient verbalized an understanding of all instructions. Related to Acute recurrent maxillary sinusitis fill new prescriptio n and take as directed. Cleanse the area daily. Observe for worsening signs and symptoms and seek care as needed. Related to Cellulitis of left forearm Take medication as p rescribed. Take all of the medication until it is gone, even if you feel better. Be sure to get plenty of fluids and rest. Recommend small, frequent meals. Recommend fiber in the diet. Recommend probiotics to replenish normal gut vishnu while taking antibiotics, and these can be obtained either in capsules over the counter, or in a probiotic rich yogurt such as Activia. Follow up with your primary care provider within the next week. Related to Abnormal urine findings Advised not to combi ne with OTC Dramamine. Instructed for any new/ worsening symptoms, she should seek emergency medical care. She voices understanding and is agreeable to the plan of care. Related to Vertigo Fill new prescriptio n and take as directed. Continue to observe for worsening signs and symptoms as discussed and seek care as needed. See Dr. Pierre as soon as possible. Related to Dysuria Consider nasal/sinus rinses with saline. Maintain adequate sleep with head of bed elevated. May try exposure to steam from hot shower or bath. May use warm compresses to sinus area(s). May use xkpo-qih-utvqrek cough suppressant such as dextromethorphan. Related to Acute maxillary sinusitis, unspecified Patient instructed o n use of saline sprays. Related to Acute maxillary sinusitis, unspecified Instructions given f or sinus irrigation. Related to Acute maxillary sinusitis, unspecified PT REFUSED PSYCHIATRIST FOLLOWUP Related to Depression Encouraged coping ac tivities, counseling Related to Depression CONTINUE HYDROCORTISONE REGULAR DOSE Related to Adrenal insufficiency TAKE ALL MEDS DIRECTED Relate d to HTN Observe for medicati on side effect, Observe for worsening s/s Related to Anxiety disorder, unspecified Encouraged coping ac tivities, counseling Related to Anxiety disorder, unspecified CONTINUE SICK DAY DO SE OF HYDROCORTISONE UNTIL 3 DAYS AFTER THE PROCEDURE Related to Adrenal insufficiency GASTROENTERITIS HAS IMPROVED-OBSERVE FOR WORSENING SYMPTOMS Related to Hospital discharge follow-up Goal of treatment di scussed, observe for suicidal thoughts Related to Anxiety disorder, unspecified Observe for medicati on side effect, Observe for worsening s/s Related to Anxiety disorder, unspecified Encouraged coping ac tivities, counseling Related to Anxiety disorder, unspecified CONTINUE CURRENT MEDICATIONS Rel ated to HTN NO CONTRA-INDICATION S FOR PLANNED UROLOGIC PROCEDURE Related to HTN CONTINUE AZO NEEDED. Related to Urinary tract infection, site not specified OBSERVE FOR WORSENING SYMPTOMS R elated to Urinary tract infection, site not specified TAKE REGULAR DOSES O F HYDROCORTISONE REGULAR DOSES. Related to Adrenal insufficiency CONTINUE MEDICATIONS DIRECTED Related to Pulmonary embolism, bilateral OBSERVE FOR WORSENIN G SYMPTOMS-SHORTNESS OF BREATH OR BLEEDING Related to Pulmonary embolism, bilateral TAKE SICK DAY DOSE F OR 3 DAYS- THEN RESUME REGULAR DOSE Related to Adrenal insufficiency Educated that antibi otics are not prescribed for viral infections. Related to Upper respiratory infection TAKE FLONASE, ZYRTEC DIRECTED Related to Upper respiratory infection INCREASE HYDROCORTIS ONE-SICK DAAY DOSE X 3 DAYS-THEN CONTINUE LOWER DOSE Related to Upper respiratory infection Rest, Proper nutrition and activ ity. Related to Weakness Observe for signs or symptoms of emergency and seek immediate care for such Related to Weakness Educated that antibi otics are not prescribed for viral infections. Related to Upper respiratory infection Supportive measures- PO fluids, rest, acetaminophen for fever Related to Upper respiratory infection Good hand hygiene Related to Upp er respiratory infection [address] ORGANIIMULT RESISTANCE SEE REPORT Related to Urinary tract infection, site not specified FINISH ANTIBIOTICS- DIRECTED R elated to Urinary tract infection, site not specified FOLLOWUP WITH UROLOGIST SCHED ULED. Related to Urinary tract infection, site not specified DO NOT MISS YOUR HYD ROCORTISONE DOSE UNLESS DIRECTED BY THE SYSTEM SOFTWARE DEVELOPER Related to Adrenal insufficiency FOLLOWUP WITH DR DENITA PINTO/[facility] Related to Adrenal insufficiency Educated that antibi otics are not prescribed for viral infections. Related to Upper respiratory infection INCREASE ORAL FLUIDS Related to Upper respiratory infection START ZYRTEC- DO NOT TAKE NASOCO RT Related to Upper respiratory infection CONTINUE ELIQUIS Related to Pulm onary embolism, bilateral TAKE HYDROCORTISONE DIRECTED BY ENDROCRINOLOGIST-START TONIGHT Related to Adrenal insufficiency HOLD NASAL SPRAYS/AN Y ORAL OR INJECTABLE STEROIDS Related to Facial edema OBSERVE FOR WORSENING SYMPTOMS R elated to Facial edema FOLLOWUP WITH DR JANIS ANDERSON [facility]- PT IS GOING TO CALL Related to Visual changes Finish all antibiotics as prescr ibed. Related to Acute recurrent maxillary sinusitis Instructions given f or sinus irrigation. Related to Acute recurrent maxillary sinusitis Increase fluids. Rest. Related t o Acute recurrent maxillary sinusitis Mucinex DM + Sudafed for sinus relief, mucous, and cough Related to Acute recurrent maxillary sinusitis Labs overall unremar kable. Mild elevation in monocytes. F/U as discussed. Related to Malaise Follow up with PCP o n 11/06/18. Return sooner if worsening. Related to Malaise Make sure you are dr inking plenty of fluids Related to Malaise Elevate legs as much as possible Related to Bilateral edema of lower extremity Consider compression stockings/s ocks Related to Bilateral edema of lower extremity Observe for persiste nt or worsening s/s Related to Dermatitis Avoid skin irritants -SRATCHES OR CONTUSIONS Related to Dermatitis APPLY-NEOSPORIN topically Relate d to Dermatitis S/P DOXYCYCLINE FOR SINUSITIS-SYMTOMATICALLY IMPROVED Related to Follow-up exam after treatment Low salt diet. Obser ve for worsening symptoms-ADD HCTZ TO CURRENT MEDS Related to Bilateral edema of lower extremity Stop taking Augmenti n. Begin taking Doxycycline as prescribed for your sinus infection. Begin using Flonase as directed twice daily for 7 days, then once daily. As an alternative to the netipot, begin using saline nasal spray as needed to loosen sinus congestion. Frequently and gently blow your nose. You may take tylenol as needed for general discomfort or headaches. Continue to monitor yourself for urinary tract symptoms and follow-up at this office or with your urologist if these symptoms return. Please make an appointment with Dr. Rhodes for follow-up this week. Return sooner if you worsen or if additional symptoms develop. Related to Acute sinusitis, unspecified Avoid exposure to to bacco smoke and/or polluted air. Consider nasal/sinus rinses with saline. Consider use of ywsr-crz-anvkemr mucolytic such as guaifenesin. Maintain adequate clear fluid intake. Maintain adequate rest. May use warm compresses to sinus area(s). The patient verbalized an understanding of all instructions. Related to Acute recurrent maxillary sinusitis Continue Augmentin, increase fluids, rest Related to Unspecified acute lower respiratory infection Mucinex DM for cough Related to Unspecified acute lower respiratory infection FINISH ANTIBIOTICS- DIRECTED R elated to Acute maxillary sinusitis, unspecified PT HAS AN ULCER IN H ER URINARY BLADDER- SCHEDULED FOR SURG AGAIN IN AUGMENTIN RECENTLYMACROBID SENT FOR PT U/A- POS FOR BILIRUBIN/UROBILINOGENCULTURE PENDING- NIT- NEG Related to Recurrent UTI INCREASE ORAL FLUIDS -USE MEDS DIRECTED Related to Recurrent UTI Goal of treatment discussed Rela familia to Reactive depression Observe for medication side effe ct Related to Reactive depression Encouraged coping activities Rel ated to Reactive depression Encouraged counseling Related to Reactive depression If you develop suici danny thoughts or feelings go to the ER Related to Reactive depression Low salt diet. Obser ve for worsening symptoms Related to Edema Elevate legs as much as possible Related to Edema Consider compression stockings/s ocks Related to Edema CULTURE-URINE- MIXED UROGENITAL VISHNU Related to Recurrent UTI Goal of treatment di scussed, observe for suicidal thoughts Related to Reactive depression Encouraged coping ac tivities, counseling Related to Reactive depression FINISH AUGMENTIN Related to Recu rrent UTI TAKE ALL MEDICATIONS REGULARLY R elated to Medication refill Finish all antibiotics as prescr ibed. Related to Urinary tract infection, site not specified Increase fluids Related to Urina ry tract infection, site not specified Proper hygiene, wipe front to ba ck Related to Urinary tract infection, site not specified Medications as discussed Related to Urinary tract infection, site not specified Increase fluids Related to Urina ry tract infection, site not specified Empty bladder frequently Related to Urinary tract infection, site not specified Observe for persiste nt or worsening symptoms Related to Urinary tract infection, site not specified Cleanse from front to back Relat ed to Urinary tract infection, site not specified Void before and after intercours e Related to Urinary tract infection, site not specified Use only unscented products Rela familia to Urinary tract infection, site not specified Follow a low sodium diet. Relate d to HTN Increase activity. Related to HT N CONTINUE ALL MEDS Related to HTN Instructions given f or sinus irrigation. Related to Acute maxillary sinusitis, unspecified Patient instructed o n use of saline sprays. Related to Acute maxillary sinusitis, unspecified Avoid exposure to to bacco smoke and/or polluted air. Consider nasal/sinus rinses with saline. Consider use of yxuh-lyc-fmhlbve mucolytic such as guaifenesin. Maintain adequate clear fluid intake. Maintain adequate rest. May use warm compresses to sinus area(s). The patient verbalized an understanding of all instructions. Related to Acute sinusitis, unspecified Mucinex for cough re lief, mucous, and congestion Related to Acute sinusitis, unspecified Continue allergy tab let and nasal spray Related to Acute sinusitis, unspecified Tylenol or Ibuprofen for fever o r pain Related to Acute sinusitis, unspecified We have sent your ur ine to the lab for analysis. We will call you with results. Please begin treatment as discussed prior to hearing your results.DRINK PLENTY OF WATER. Increase fluid intake to eight 8-ounce glasses of water per day. Use zdca-nbv-rueredd AZO for relief of painful urination. This will turn your urine dark orange and that is normal with this medication. Empty your bladder frequently and completely. Empty your bladder immediately after sexual intercourse. After using the bathroom, wipe in a front to back motion. Wear only cotton underwear. Avoid douching and bubble baths.A heating pad applied over your clothing to the perineal area may help to alleviate your pain.Take antibiotics until you are out of pills, do not stop antibiotics early. Call the office if you develop nausea, vomiting, or diarrhea, a skin rash or swelling which you feel is related to your medications. Eat yogurt, one single serving size container, 3 hours before or after your antibiotic, each day that you are taking the antibiotic OR take acidophilus tablets (probiotics) daily while on the antibiotic. Either of these will help to replenish the good bacteria in the colon that can be killed off by the antibiotic.Call Dr. Carreno's office tomorrow, Tuesday, to let him know of the recent urinary pain and for further instructions. Return to this clinic if your symptoms persist or worsen, or if additional symptoms develop. Related to Urinary tract infection, site not specified Low risk for cardiac complicatio ns Related to Pre-operative general physical examination May proceed with surgery Related to Pre-operative general physical examination cefdinir, tylenol pr n, urine culture. F.U with Dr. Robbins and other Related to Urinary tract infection, site not specified urologist. Related to Urina ry tract infection, site not specified URINE CULT--POS FOR 30,000 ENTEROCOCCI SPSUSCEPTIBLE TO AMPICILLIN AND NITROFURONTOIN08/16/17-PT FEELS BETTER/SYMPTOMS HAVE IMPROVED WITH MACROBID-ADVISED TO FINISH AND FOLLOWUP WITH UROLOGY CLINIC-DR ROBBINS Related to Chronic interstitial cystitis w/o hematuria Follow up with your urologist Re lated to Chronic interstitial cystitis w/o hematuria Follow prescribed IC diet Relate d to Chronic interstitial cystitis w/o hematuria Consider Amitriptyli ne for chronic bladder pain and dysuria Related to Chronic interstitial cystitis w/o hematuria CONTINUE ALL MEDS DIRECTED Re lated to HTN Continue with use of Flonase or Nasacort. Related to Acute maxillary sinusitis, unspecified Educated on use of antibiotic Re lated to Acute maxillary sinusitis, unspecified RTC for symptoms korin t persist or worsen Related to Acute maxillary sinusitis, unspecified OTC sinus medications as discuss ed Related to Acute maxillary sinusitis, unspecified Observe for medication side effe cts Related to Acute maxillary sinusitis, unspecified USE OF HUMIDIFIER-INSTRUCTIONS R elated to Acute sinusitis, unspecified INCREASE ORAL FLUIDS Related to Acute cystitis without hematuria PYRIDIUM USE/CHANGE IN URINE COLOR DISCUSSED Related to Acute cystitis without hematuria Patient instructed o n use of saline sprays. Related to Acute non-recurrent frontal sinusitis Take medication as directed. Rel ated to Acute non-recurrent frontal sinusitis Observe for worsening s/s. Relat ed to Acute non-recurrent frontal sinusitis Observe for worsening s/s. Relat ed to Dysuria Increase intake of w ater and cranberry juice. Related to Dysuria Finish all antibiotics as prescr ibed. Related to Urinary tract infection, site not specified Increase fluids Related to Urina ry tract infection, site not specified Proper hygiene, wipe front to ba ck Related to Urinary tract infection, site not specified Finish all antibiotics as prescr ibed. Related to Urinary tract infection, site not specified Increase fluids Related to Urina ry tract infection, site not specified Proper hygiene, wipe front to ba ck Related to Urinary tract infection, site not specified Take medications as directed. Re lated to Acute non-recurrent pansinusitis Observe for worsening s/s. Relat ed to Acute non-recurrent pansinusitis Call office with any acute sanju rns. Related to Acute non-recurrent pansinusitis Take medication as directed. Rel ated to Acute non-recurrent pansinusitis Observe for worsening s/s. Relat ed to Acute non-recurrent pansinusitis Increase intake of clear fluids. Related to Acute non-recurrent pansinusitis Tylenol and Ibuprofe n as needed for discomfort. Related to Acute non-recurrent pansinusitis Call office with any acute sanju rns. Related to Acute non-recurrent pansinusitis medication as prescribed Related to Acute bronchitis, unspecified medication as prescribed f/u wit h PMD Related to Acute maxillary sinusitis, unspecified f.u in not better. Related to Ac [place] recurrent maxillary sinusitis flonase, loraine, will do augmen tin Related to Acute recurrent maxillary sinusitis Patient instructed o n use of saline sprays. Related to Acute maxillary sinusitis, unspecified Patient instructed o n use of Flonase or Nasacort. Related to Acute maxillary sinusitis, unspecified Augmentin as discussed Related t o Acute maxillary sinusitis, unspecified The patient was inst ructed to keep a voiding diary. push fluids Related to Urinary tract infection, site not specified Instructions given f or sinus irrigation. Related to Acute frontal sinusitis, unspecified Patient instructed o n use of saline sprays. Related to Acute frontal sinusitis, unspecified Follow up with primary Related t o Urinary frequency Increase fluids Related to Urina ry frequency Proper hygiene, wipe front to ba ck Related to Urinary frequency Patient instructed o n use of saline sprays. Related to Acute sinusitis, unspecified Cover cough, Wash shepard nds frequently, Do not share drinks Related to Acute sinusitis, unspecified RTC for symptoms korin t persist or worsen Related to Acute sinusitis, unspecified Patient instructed o n use of saline sprays. Related to Sinusitis, Acute Instructions given f or sinus irrigation. Related to Sinusitis, Acute MEdication as discussed Related to Sinusitis, Acute F/u with electrical engineer Related to Si nusitis, Acute RTC if symtpoms persist or worse n Related to Sinusitis, Acute keflex, life style c hanges and f.u in one week if not better. Related to UTI (urinary tract infection) Patient instructed o n use of saline sprays. Related to Acute maxillary sinusitis amoxicillin for 10 d ays and than f.u prn Related to Acute maxillary sinusitis Instructions given f or sinus irrigation. Related to Acute maxillary sinusitis pt did not respond w ell to amoxicillin. Will do trial of azithromycin to treat possible atypical pneumonia. If pt is not better by next week, will need xray, given that pt has hx of lung cancer. Related to Cough In the past she has been treat well with amoxicilling therefore, will repeat it. fu two weeks if not better. Related to Sinusitis, Acute Patient instructed o n use of saline sprays. Related to Allergic rhinitis Instructions given f or sinus irrigation. Related to Allergic rhinitis f/u if medication do es not resolve syptoms today Related to Meniere disorder Patient instructed o n use of saline sprays. Related to Acute maxillary sinusitis Instructions given f or sinus irrigation. Related to Acute maxillary sinusitis Take medications as instructed. Related to Sinusitis, Acute septra ds 1 tab po bid x 10d Rel ated to Sinusitis, Acute Instructions given f or sinus irrigation. Related to Recurrent acute sinusitis Referral to ENT for frequent sin usitis Related to Recurrent acute sinusitis return if not better in 3-5 days, sooner if worse Related to Recurrent acute sinusitis Patient instructed o n use of saline sprays. Related to Recurrent acute sinusitis augmentin and prednisone Related to Recurrent acute sinusitis Assessments Type Assessment Date assessment Dysuria assessment Acute cystitis with hematuria Mental Status Date Cognitive Assessment Orientation - [place] ed to time, place, person, situation.Normal Orientation Patient Care Teams Name Effective Dates (start - stop) Status Members No Information
--- OUTSIDE RECORDS SUMMARY | 2024-03-23 11:10 | XMS_ITS | Encounter Summary ---
Author Organization [facility] Address Critical access hospital[address] [place] [address] [place] [address] Care Team Providers Care Steam Press Operator Name Role Phone Jimenez Rhodes MD Primary Care Provider [phone] Kelli Cunha MD Unavailable [phone] Josué Berry MD Primary Care Provider [phone] Segundo Paige MD Unavailable [phone] Encounter Details Date Type Department Care Team (Late st Contact Info) Description 04/24/2019 Abstract [facility] [address] [place] [address] Abstract, Doc [facility] Social History Tobacco Use Types Packs/Day Years Used Date Smoking Tobacco: Never Smokeless Tobacco: Never Alcohol Use Standard Drinks/Week Comments No 0 (1 standard drink = 0.6 oz pur e alcohol) Comments Unknown Sex and Gender Information Value Date Recorded Sex Assigned at Not on file Legal Sex Female 9:15 PM CDT Gender Identity Not on file Sexual Orientation Not on file Occupation Industry Job Start Date Job End Date Retired Not on file Not on file Not on file documented as of this encounter Plan of Treatment Not on file documented as of this encounter Procedures Procedure Name Priority Date/Time Associated Diagnosis Comments CMP (ABSTRACTED LAB) Routine 04/01/2019 CBC (OUTSIDE LAB) Routine 04/01/2019 HEMOGLOBIN, GLYCOSYLATED Routine 03/30/2019 documented in this encounter Results * CBC (OUTSIDE LAB) (04/01/2019) WBC 8.8 HGB 15.3 HCT 44.6 PLT 224 04/01/2019 us Doc [facility] Abstract LAB-OUTSIDE/ABSTRACTED Final Result * CMP (ABSTRACTED LAB) (04/01/2019) SODIUM S/P/B 140 POTASSIUM S/P/B 4.1 CHLORIDE S/P/B 103 CO2 27 BUN 9 CREATININE S/P/B 0.5 0.5 - 1.0 CALCIUM S/P/B 9.4 GLUCOSE 204 mg/dL TOTAL PROTEIN S/P/B 6.4 ALBUMIN S/P/B 3.7 3.5 - 5.0 AST 28 ALT 34 ALKALINE PHOSPHATASE S/P/B 65 BILIRUBIN TOTAL S/P/B 0.6 04/01/2019 us Doc [facility] Abstract LAB-OUTSIDE/ABSTRACTED Final Result * HEMOGLOBIN, GLYCOSYLATED (03/30/2019) HGB A1C 6.5 03/30/2019 us Doc [facility] Abstract LABORATORY Final Result documented in this encounter Visit Diagnoses Not on filedocumented in this encounter Additional Health Concerns Infection Onset Date Last Indicated Resolved Time COVID-19 Rule Out 03/11/2021 03/11/2021 03/11/2021 3:01 PM POOL FINISHER documented as of this encounter Care Teams Steam Press Operator Relationship Specialty Start Date End Date Jimenez Rhodes MD [address] [place] [id number] PCP - General EMERGENCY MEDICINE 04/06/17 04/13/20 Josué Berry MD [address] [place] [id number] PCP - General FAMILY PRACTICE 04/14/20 Kelli Cunha MD [address] [place] [id number] Bivalve Substation Mechanic CARDIOVASCULAR DISEASE 04/06/17 Segundo Paige MD [address] [place] [address] Consulting Physician HEMATOLOGY/ONCOLOGY 05/20/20 documented as of this encounter
--- OUTSIDE RECORDS SUMMARY | 2024-03-23 11:10 | XMS_ITS | Encounter Summary ---
Author Organization [facility] Address [address] [facility] [address] Phone Care Team Providers Care Candy Butcher Name Role Phone Provider, None Primary Care Provider Unavailabl e Encounter Details Date Type Department Care Team (Late st Contact Info) Description 03/30/2019 Lab Requisition [facility] Services [address] [place] [address] Jann Mccormick MD [address] [place], [place] [id number] Social History Tobacco Use Types Packs/Day Years Used Date Smoking Tobacco: Never Assessed Comments Unknown Sex and Gender Information Value Date Recorded Sex Assigned at Not on file Legal Sex Female 8:09 PM CDT Gender Identity Not on file Sexual Orientation Not on file documented as of this encounter Plan of Treatment Not on file documented as of this encounter Procedures Procedure Name Priority Date/Time Associated Diagnosis Comments CULTURE, BLOOD Routine 03/30/2019 10:30 PM PAINTER BARREL documented in this encounter Results * CULTURE, BLOOD (03/30/2019 10:30 PM PAINTER BARREL) CULTURE RESULTS NO GROWTH WITHIN 5 DAYS, FINAL RESULT 04/05/2019 2:02 PM PAINTER BARREL [facility] Culture of specimen by commercial kit (procedure) BLOOD SPECIMEN / Unknown No Phlebotomy Charged / Unknown 03/30/2019 10:30 PM PAINTER BARREL 03/31/2019 1:12 PM PAINTER BARREL us Jann Mccormick MD MICROBIOLOGY - GENERAL ORDER VIDYA Final Result [facility] [address] [place] [address], [place] documented in this encounter Visit Diagnoses Not on filedocumented in this encounter Care Teams Candy Butcher Relationship Specialty Start Date End Date Provider, None [place] PCP - General 04/29/21 documented as of this encounter
--- OUTSIDE RECORDS SUMMARY | 2024-03-23 11:10 | XMS_ITS | Encounter Summary ---
Author Organization [facility] Address Critical access hospital6 [facility] [place] [address] [place] [address] Care Team Providers Care Concrete Tester Name Role Phone Jimenez Rhodes MD Primary Care Provider [phone] Kelli Cunha MD Unavailable [phone] Josué Berry MD Primary Care Provider [phone] Segundo Paige MD Unavailable [phone] Encounter Details Date Type Department Care Team (Late st Contact Info) Description 04/30/2015 Abstract [facility] AT [address] [address] Kelli Cunha MD [address] [place] [address] Social History Tobacco Use Types Packs/Day Years Used Date Smoking Tobacco: Never Alcohol Use Standard Drinks/Week Comments [...] Rule Out 03/11/2021 03/11/2021 03/11/2021 3:01 PM VAMP MAKER documented as of this encounter Care Teams Concrete Tester Relationship Specialty Start Date End Date Jimenez Rhodes MD [address] [place] [address] PCP - General EMERGENCY MEDICINE 04/06/17 04/13/20 Josué Berry MD [address] [place] [address] PCP - General FAMILY PRACTICE 04/14/20 Kelli Cunha MD [address] [place] [address] [place] Presser And Blocker Knitted Goods CARDIOVASCULAR DISEASE 04/06/17 Segundo Paige MD [address] [place] [address] Consulting Physician HEMATOLOGY/ONCOLOGY 05/20/20 documented as of this encounter
--- OUTSIDE RECORDS SUMMARY | 2024-03-23 11:10 | XMS_ITS | Clinical Summary ---
Author Organization [facility] Address [address] [place] [address] Care Team Providers Care Printing Roller Handler Name Role Phone Provider, None Primary Care Provider Unavailabl e Social History Tobacco Use Types Packs/Day Years Used Date Smoking Tobacco: Never Assessed Comments Unknown Sex and Gender Information Value Date Recorded Sex Assigned at Not on file Legal Sex Female 8:09 PM CDT Gender Identity Not on file Sexual Orientation Not on file Plan of Treatment Health Maintenance Due Date Last Done Comments DEXA Bone Density 1940 Hepatitis C Virus (HCV) Screening 1940 TdaP Immunization 1940 Zoster Immunization (1 of 2) 1988 Respiratory Syncytial Virus (RSV) Immunization (Adult) (1 - 1-dose 75+ series) 2013 Pneumococcal Immunization (50+ years) (2 of 2 - PCV) 09/22/2019 09/21/2018, 11/21/2008 Influenza Immunization (#1) 10/23/202312/22, 12/03/2019, 11/16/2018, Additional history exists SARS-COV-2 Immunization ( season) 2023 Pneumococcal Immunization Combined Discontinued 09/21/2018, 11/21/2008 Hepatitis B Immunization Aged Out No longer eligible based on patient's age to complete this topic Meningococcal Immunization (ACWY) Aged Out No longer eligible based on patient's age to complete this topic Rotavirus Immunization Aged Out No lo nger eligible based on patient's age to complete this topic Insurance [employer] on file MEDICARE RAILROAD Care Teams Printing Roller Handler Relationship Specialty Start Date End Date Provider, None [place] PCP - General 04/29/21
--- OUTSIDE RECORDS SUMMARY | 2024-03-23 11:10 | XMS_ITS | Encounter Summary ---
Author Organization [facility] Address [address] [facility] [place] [address] Phone Care Team Providers Care Jig Grinder Name Role Phone Provider, None Primary Care Provider Unavailabl e Encounter Details Date Type Department Care Team (Late st Contact Info) Description 03/30/2019 Lab Requisition [facility] Laboratory Services [address] [place] [address] Jann Mccormick MD [address] [place], [place] [id number] Social History Tobacco Use Types Packs/Day Years [...] Associated Diagnosis Comments CULTURE, BLOOD Routine 03/30/2019 9:45 PM SUPERVISOR BELT AND LINK ASSEMBLY documented in this encounter Results * CULTURE, BLOOD (03/30/2019 9:45 PM SUPERVISOR BELT AND LINK ASSEMBLY) CULTURE RESULTS NO GROWTH WITHIN 5 DAYS, FINAL RESULT 04/05/2019 2:02 PM SUPERVISOR BELT AND LINK ASSEMBLY [facility] Culture of specimen by commercial kit (procedure) BLOOD SPECIMEN / Unknown No Phlebotomy Charged / Unknown 03/30/2019 9:45 PM SUPERVISOR BELT AND LINK ASSEMBLY 03/31/2019 1:11 PM SUPERVISOR BELT AND LINK ASSEMBLY us Jann Mccormick MD MICROBIOLOGY - GENERAL ORDER VIDYA Final Result [facility] [address] [place] [address], [place] documented in this encounter Visit Diagnoses Not on filedocumented in this encounter Care Teams Jig Grinder Relationship Specialty Start Date End Date Provider, None [place] PCP - General 04/29/21 documented as of this encounter
--- OUTSIDE RECORDS SUMMARY | 2024-03-23 11:10 | XMS_ITS | Encounter Summary ---
Author Organization [facility] Address [address] [facility] [address] Phone Care Team Providers Care Fence Installer Name Role Phone Provider, None Primary Care Provider Unavailabl e Encounter Details Date Type Department Care Team (Late st Contact Info) Description 03/29/2019 Lab Requisition [facility] Laboratory Services [address] [place] [address] System, Referring Not In [place] Social History Tobacco Use Types Packs/Day Years [...] Name Priority Date/Time Associated Diagnosis Comments CULTURE, URINE Routine 03/29/2019 11:40 AM CLAY ARTIST documented in this encounter Results * CULTURE, URINE (03/29/2019 11:40 AM CLAY ARTIST) CULTURE RESULTS MIXED GROWTH OF ONE OR MORE DISTAL URETHRAL CONTAMINANTS 03/30/2019 2:50 PM CLAY ARTIST [facility] Culture of specimen by commercial kit (procedure) URINE SPECIMEN / Unknown Non-Phlebotomy Collection / Unknown 03/29/2019 11:40 AM CLAY ARTIST 03/29/2019 9:16 PM CLAY ARTIST us Referring Not In System MICROBIOLOGY - GENERAL O RDERABLES Final Result [facility] [address] [place] [address], [place] documented in this encounter Visit Diagnoses Not on filedocumented in this encounter Care Teams Fence Installer Relationship Specialty Start Date End Date Provider, None [place] PCP - General 04/29/21 documented as of this encounter
--- OUTSIDE RECORDS SUMMARY | 2024-03-23 11:10 | XMS_ITS | Referral Summary ---
Author Organization [facility] Address [address] [place] [address] Care Team Providers Care Ager Operator Name Role Phone Josué Berry MD Primary Care Provider + Allergies Active Allergy Reactions Criticality Noted Date Comments Ciprofloxacin Muscle pain Medium 07/22/2015 Montelukast Sodium Muscle pain Medium 10/31/2013 Sulfa (Sulfonamide Antibiotics) Rash Reaction: Rash, Sulfanilamide Rash Medium Reaction: Rash, ?? Reaction: Rash, ?? Trimethoprim Unknown 07/04/2018 Medications ALPRAZolam (XANAX) 0.25 mg tablet Take 1 tablet (0.25 mg total) by mouth 2 (two) times a day as needed for anxiety 30 tablet 0 Active Additional Information Patient not taking.Reported on 09/05/2020 sertraline (ZOLOFT) 100 mg tablet Take 1 tablet (100 mg total) by mouth nightly 30 tablet 0 Active Additional Information Patient not taking.Reported on 09/05/2020 metFORMIN (GLUCOPHAGE) 500 mg tablet Take 500 mg by mouth 2 (two) times a day with meals Active omeprazole (PriLOSEC) 40 mg capsule Take 40 mg by mouth daily 9 Active hydrocortisone (CORTEF) 10 mg tablet Take 2 tablets (20 mg total) by mouth 2 (two) times a day 360 tablet 3 2 Active lisinopriL (PRINIVIL,ZESTR [place]) 10 mg tablet Take 10 mg by mouth daily Active potassium chloride 10 mEq/100 mL Infuse 10 mEq into a venous catheter Active Eliquis 2.5 mg tablet [address] (CYMBALTA) 30 mg capsule Take 30 mg by mouth daily Active hydrOXYzine (ATARAX) 50 mg tablet 3 Active amLODIPine (NORVASC) 10 mg tablet Take 10 mg by mouth daily Active Active Problems Problem Noted Date Diagnosed Date Viral syndrome 01/06/2020 Pneumonia due to COVID-19 virus 01/06/2020 Assessment & Plan (01/06/2020 10:26 PM FINAL CANOE INSPECTOR): Multiple family members are positive. Patient's is in the hospital in [place]. She is requiring oxygen. Will start patient on Decadron and remdesivir. Patient is not sure she wants a transfusion and wants to think about convalescent plasma. Printout of information for convalescent plasma was given to patient. Continue supportive care. Adrenal insufficiency 01/06/2020 Assessment & Plan (03/22/2022 1:51 PM FINAL CANOE INSPECTOR): Diagnosed around 2017 Used to see Loom Inspector in [place], [place] Patient is clinically stable Labs on 03/11/21 Sodium 140 Potassium 3.6, GFR 61 Plan: Decrease Hydrocortisone to 10 mg bid Obtain copy of labs done a week ago. Patient is wearing medical alert tag Reviewed with patient the sick day protocol for steroids, to increase dose to 20 mg bid for 3-4 days with infections, and need to go to ER if having vomiting and not able to keep medications down. Patient understands and agrees with above plan. Assessment & Plan (09/05/2020 2:24 PM CDT): Diagnosed around 2017 Used to see Loom Inspector in [place], [place] Patient is clinically stable Labs on 06/26/20 Sodium 140 Potassium 4.0 with normal kidney functions Plan: Continue same dose of Hydrocortisone Obtain copy of records from previous Loom Inspector Check labs this week Patient is wearing medical alert tag Reviewed with patient the sick day protocol for steroids, and need to go to ER if having vomiting and not able to keep medications down. Patient understands and agrees with above plan. Assessment & Plan (01/06/2020 10:18 PM FINAL CANOE INSPECTOR): Currently showing no signs of adrenal insufficiency. Will continue to monitor however if patient becomes hypotensive will switch Decadron to stress dose Solu-Cortef. History of pulmonary embolism 01/06/2020 Assessment & Plan (01/06/2020 10:19 PM FINAL CANOE INSPECTOR): Patient is on Coumadin with a slightly supratherapeutic INR. Coumadin has been resumed with pharmacy to dose. Pre-diabetes 01/06/2020 Assessment & Plan (01/06/2020 10:18 PM FINAL CANOE INSPECTOR): Patient takes metformin at home. Will be starting Decadron. Will order NPH with Decadron and monitor on a mid dose sliding scale. Acute hypoxemic respiratory failure 01/06/2020 Assessment & Plan (01/06/2020 10:20 PM FINAL CANOE INSPECTOR): Patient does not use oxygen at home. She presented with an SpO2 86% on room air. She is requiring supplemental oxygen via nasal cannula, 2 L. continue to monitor on continuous pulse ox. Adjust oxygen as needed. Recurrent major depressive disorder 05/18/2019 Assessment & Plan (01/06/2020 10:21 PM FINAL CANOE INSPECTOR): Continue home medications Anxiety 05/11/2019 UTI (urinary tract infection) 05/11/2019 Chronic interstitial cystitis 07/20/2016 Overview (07/23/2016): Interstitial cystitis Hypertension 07/05/2012 Overview (05/27/2016): Hypertension Assessment & Plan (03/22/2022 1:52 PM FINAL CANOE INSPECTOR): Controlled with medication - continue medication per PCP - instructed family to make sure to have f/u with PCP for evaluation and management of pain after a fall. Assessment & Plan (09/05/2020 2:25 PM CDT): Controlled with medication - low salt diet - continue medication per PCP Assessment & Plan (01/06/2020 10:17 PM FINAL CANOE INSPECTOR): Pressure is slightly elevated. Home medications have been resumed with hold parameters. Continue monitor. Gastroesophageal reflux disease 07/05/2012 Overview (05/27/2016): GERD (gastroesophageal reflux disease) Hyperlipidemia 07/05/2012 Overview (05/27/2016): Hyperlipemia Assessment & Plan (01/06/2020 10:18 PM FINAL CANOE INSPECTOR): Continue statin Personal history of primary malignant neoplasm o f lung 07/05/2012 Overview (05/28/2016): History of lung cancer Cystitis 07/05/2012 Overview (05/28/2016): Cystitis Anticoagulant adverse reaction, initial encounte r Sepsis without acute organ dysfunction Dehydration Confusion and disorientation Resolved Problems Problem Noted Date Diagnosed Date Resolved Date Hypokalemia 01/06/2020 01/09/2020 Assessment & Plan (01/06/2020 10:21 PM FINAL CANOE INSPECTOR): Likely secondary to vomiting and diarrhea. Patient received replacement. Will repeat potassium level. Will also check a Mag. Replete as needed. Immunizations Name Administration Dates Next Due H1N1 All Forms 02/08/2009 Influenza, Quadrivalent, Spl it, Preservative Free, Intramuscular 11/16/2018 Influenza, Trivalent, High D ose, Split, Preservative Free, Intramuscular 11/21/2017 Influenza, Trivalent, IM (MDV) 08/02/2018 Pneumococcal Polysaccharide PPV23 09/21/2018,02/2008 Social History Tobacco Use Types Packs/Day Years Used Date Smoking Tobacco: Never Smokeless Tobacco: Never Tobacco Cessation:Counseling Given: Not Answered Alcohol Use Standard Drinks/Week Comments No 0 (1 standard drink = 0.6 oz pur e alcohol) PHQ-2 Answer Date Recorded PHQ-2 Total Score (If total score is 3 or more points, staff should administer the PHQ-9) 0 01/07/2020 Comments No Sex and Gender Information Value Date Recorded Sex Assigned at Not on file Legal Sex Female 1:47 AM FINAL CANOE INSPECTOR Gender Identity Not on file Sexual Orientation Not on file Last Filed Vital Signs Vital Sign Reading Time Taken Comments Blood Pressure 132/78 03/22/2022 1:01 PM FINAL CANOE INSPECTOR Pulse 68 01/11/2020 6:00 PM FINAL CANOE INSPECTOR Temperature 35.9 ??C (96.7 ??F) 01/11/2020 3:15 PM CS T Respiratory Rate 18 01/11/2020 3:15 PM FINAL CANOE INSPECTOR Oxygen Saturation 93% 01/11/2020 6:00 PM FINAL CANOE INSPECTOR Inhaled Oxygen Concentration - - Weight 75 kg (165 lb 6.4 oz) 03/22/2022 1:01 PM FINAL CANOE INSPECTOR Height 162.6 cm (5' 4 ) 03/22/2022 1:01 PM FINAL CANOE INSPECTOR Body Mass Index 28.39 03/22/2022 1:01 PM FINAL CANOE INSPECTOR Plan of Treatment Not on file Insurance COMMERCIAL GENERIC MEDICARE RAILROAD MEDICARE RAILROAD COMMERCIAL GENERIC MEDICARE RAILROAD COMMERCIAL GENERIC [place] [address] Advance Directives For more information, please contact: [phone] * LIMITED - No CPR (Latest Code Status on File) Date Activated Date Inactivated Comments 01/06/2020 10:14 PM 01/11/2020 11:25 PM * Full Code Date Activated Date Inactivated Comments 01/06/2020 3:15 PM 01/06/2020 10:14 PM * Full Code Date Activated Date Inactivated Comments 05/12/2019 5:04 PM 05/21/2019 6:05 PM * LIMITED - No CPR Date Activated Date Inactivated Comments 05/11/2019 4:22 PM 05/12/2019 2:29 PM Question Answer Comments Provide aggressive medical m anagement before a full cardiopulmonary arrest occurs. Use antibiotics, IV Fluids, and medical treatment unless specifically selected below: No intubationNo non-invasive ventilationNo cardioversionNo internal / external pacemaker * Full Code Date Activated Date Inactivated Comments 05/11/2019 4:32 AM 05/11/2019 4:22 PM Care Teams Ager Operator Relationship Specialty Start Date End Date Josué Berry MD [address] [place] [id number] PCP - General 05/10/19
--- OUTSIDE RECORDS SUMMARY | 2024-03-23 11:10 | XMS_ITS | Clinical Summary ---
Author Organization [facility] Address [address] [place] [address] [place] [address] Care Team Providers Care Activities Coordinator Name Role Phone Kelli Cunha MD Unavailable [phone] Josué Berry MD Primary Care Provider [phone] Segundo Paige MD Unavailable [phone] Allergies Active Allergy Reactions Criticality Noted Date Comments Ciprofloxacin Myalgias Medium 07/22/2015 Sulfa Antibiotics Unknown,Rash Low 03/17/2016 Reaction: Rash, Sulfanilamide Rash Low Reaction: Rash, Medications [place]-3 Fat Ac-Cholecalciferol (SEA-OMEGA + D OR) Take 1 tablet by mouth 3 (three) times daily. 6 Active Multiple Vitamins-Minerals (MULTIVITAMIN ADULT OR) take 1 capsule by oral route every day 3 Active simvastatin 40 MG tablet Take 40 mg by mouth every evening. 1 9 Active omeprazole 40 MG capsule Take 40 mg by mouth daily. 3 9 Active hydrocortisone 10 MG tablet 10 mg 2 (two) times daily. 0 Active Cholecalciferol (VITAMIN D3) 50 MCG (1999 UT) Cap Take 2,000 Units by mouth daily. Active fexofenadine 180 MG tablet Take 180 mg by mouth daily. Active fluticasone propionate 50 MCG/ACT nasal spray 1 spray by Each Nostril route daily as needed. 0 Active metFORMIN 500 MG tablet 500 mg daily with breakfast. 0 Active melatonin 1 MG tablet Take 2 mg by mouth nightly as needed. Active amLODIPine 5 MG tablet Take 1 tablet (5 mg total) by mouth daily. 90 tablet 3 1 Active mirtazapine 15 MG disintegrating tablet Take 15 mg by mouth nightly at bedtime. Active phenazopyridine 100 MG tablet Take 200 mg by mouth 2 (two) times a day. Active hydroCHLOROthiazide 25 MG tablet Take 25 mg by mouth daily. 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 04/23/2017 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 04/23/2017 ARDEN (obstructive sleep apnea) 04/02/2017 Hypertension, essential 02/14/2016 History of lung cancer 02/14/2016 Resolved Problems Problem Noted Date Diagnosed Date Resolved Date Preoperative cardiovascular examination 10/08/2018 11/02/2019 Family History Medical History Relation Comments CHF Brother 1 Heart Attack Brother 1 Stroke Father [place] Mother Stroke Paternal Grandfather Relation Status Comments Brother 1 Brother 2 Alive Brother 3 Alive Brother 4 Alive Father Maternal Grandfather Maternal Grandmother Mother (Age 78) Paternal Grandfather Paternal Grandmother Sister 1 Alive Sister 2 Alive Sister 3 Alive Sister 4 Alive Sister 5 Alive Social History Tobacco Use Types Packs/Day Years Used Date Smoking Tobacco: Never Smokeless Tobacco: Never Alcohol Use Standard Drinks/Week Comments No 0 (1 standard drink = 0.6 oz pur e alcohol) Comments No Sex and Gender Information Value Date Recorded Sex Assigned at Not on file Legal Sex Female 9:15 PM CDT Gender Identity Not on file Sexual Orientation Not on file Occupation Industry Job Start Date Job End Date Retired Not on file Not on file Not on file Last Filed Vital Signs Vital Sign Reading Time Taken Comments Blood Pressure 162/68 03/11/2021 7:36 AM AUTOMOTIVE REFINISH TECHNICIAN informed RN Jeni Pulse 79 03/11/2021 7:36 AM AUTOMOTIVE REFINISH TECHNICIAN Temperature 36.4 ??C (97.5 ??F) 03/11/2021 7 :36 AM AUTOMOTIVE REFINISH TECHNICIAN Respiratory Rate 18 03/09/2021 4:48 AM AUTOMOTIVE REFINISH TECHNICIAN Oxygen Saturation 96% 03/11/2021 2:0 0 PM AUTOMOTIVE REFINISH TECHNICIAN Inhaled Oxygen Concentration - - Weight 84.4 kg (186 lb 1.1 oz) 03/09/2021 5:00 AM AUTOMOTIVE REFINISH TECHNICIAN Height 157.5 cm (5' 2 ) 03/07/2021 10:5 5 AM AUTOMOTIVE REFINISH TECHNICIAN Body Mass Index 34.03 03/07/2021 10:55 AM AUTOMOTIVE REFINISH TECHNICIAN Plan of Treatment Health Maintenance Due Date Last Done Comments ASCVD Statin 1940 DTaP, Tdap and Td Vaccines (1 - Tdap) 1957 Zoster Vaccines (1 of 2) 1988 Annual Medicare Wellness Visit 09/08/2003 RSV Immunization or 60+ Years (1 - 1-dose 75+ series) 2013 ASCVD LDL 05/13/2019 05/12/2018, 03/24, 03/03/2016, Additional history exists Pneumococcal Vaccine: 65+ Years (2 of 2 - PCV) 09/22/2019 09/21/2018, 11/21/2008 COVID-19 Vaccine ( season) 2023 Influenza Adult (#1) 2023 01/05/2021, 12/03/2019, 11/16/2018, Additional history exists Meningococcal B Vaccine Aged Out No l onger eligible based on patient's age to complete this topic Meningococcal Vaccine Aged Out No mary kay pamela eligible based on patient's age to complete this topic RSV Immunizations Under 20 Months Aged Out No longer eligible based on patient's age to complete this topic Goals Goal Patient Goal Type Associated Problems Recent Progress Patient-Stated? Author Discharge ? Patient/family verbalizes understanding regarding the need for SNF placement Edna Dos Santos, director of social work - family caregiver with be involved in care transitions and discharge planning Edna Dos Santos, junior programmer Procedure Name Priority Date/Time Associated Diagnosis Comments LIPID PANEL Routine 05/12/2018 Mixed hypercholesterolemia and hypertriglyceridemia Elevated coronary artery calcium score Medication management from Last 3 Months or Most Recently Relevant to Health Maintenance Results * (ABNORMAL) LIPID PANEL (05/12/2018) CHOLESTEROL 169 HDL 52.0 TRIGLYCERIDES 151 150 - 200 CHOL/HDL RATIO 3.3(A) 4.5 - 5.5 LDL (CALCULATED) 87 LDL/HDL 1.7 05/12/2018 Kelli Cunha MD LABORATORY Final Result from Last 3 Months or Most Recently Relevant to Health Maintenance Insurance [facility] [employer] [facility] Advance Directives Documents on File Type Date Recorded Patient 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 * Full Code (Latest Code Status on File) Date Activated Date Inactivated Comments 03/07/2021 11:18 AM 03/11/2021 5:59 PM Care Teams Activities Coordinator Relationship Specialty Start Date End Date Josué Berry MD [address] [place] [address] PCP - General FAMILY PRACTICE 04/14/20 Kelli Cunha MD [address] [place] [id number] [place] Forensic Investigator CARDIOVASCULAR DISEASE 04/06/17 Segundo Paige MD [address] [place] [address] Consulting Physician HEMATOLOGY/ONCOLOGY 05/20/20
--- OUTSIDE RECORDS SUMMARY | 2024-03-23 11:10 | XMS_ITS | Clinical Summary ---
Author Organization [facility] Address [address] [place] [address] Care Team Providers Care Medical Malpractice Paralegal Name Role Phone Josué Berry MD Primary [...] 01/06/2020 Assessment & Plan (01/06/2020 10:26 PM LAY OUT CARPENTER): Multiple family members are positive. Patient's is in the hospital in [place]. She is requiring oxygen. Will start patient on Decadron and remdesivir. Patient is not sure she wants a transfusion and wants to think about convalescent plasma. Printout of information for convalescent plasma was given to patient. Continue supportive care. Adrenal insufficiency 01/06/2020 Assessment & Plan (03/22/2022 1:51 PM LAY OUT CARPENTER): Diagnosed around 2017 Used to see Excavating Contractor in [place], [place] Patient is clinically stable Labs on [...] CDT): Diagnosed around 2017 Used to see Excavating Contractor in [place], [place] Patient is clinically stable Labs on 06/26/20 Sodium 140 Potassium 4.0 with normal kidney functions Plan: Continue same dose of Hydrocortisone Obtain copy of records from previous Excavating Contractor Check labs this week Patient is wearing medical alert tag Reviewed with patient the sick day protocol for steroids, and need to go to ER if having vomiting and not able to keep medications down. Patient understands and agrees with above plan. Assessment & Plan (01/06/2020 10:18 PM LAY OUT CARPENTER): Currently showing no signs of adrenal insufficiency. Will continue to monitor however if patient becomes hypotensive will switch Decadron to stress dose Solu-Cortef. History of pulmonary embolism 01/06/2020 Assessment & Plan (01/06/2020 10:19 PM LAY OUT CARPENTER): Patient is on Coumadin with a slightly supratherapeutic INR. Coumadin has been resumed with pharmacy to dose. Pre-diabetes 01/06/2020 Assessment & Plan (01/06/2020 10:18 PM LAY OUT CARPENTER): Patient takes metformin at home. Will be starting Decadron. Will order NPH with Decadron and monitor on a mid dose sliding scale. Acute hypoxemic respiratory failure 01/06/2020 Assessment & Plan (01/06/2020 10:20 PM LAY OUT CARPENTER): Patient does not use oxygen at home. She presented with an SpO2 86% on room air. She is requiring supplemental oxygen via nasal cannula, 2 L. continue to monitor on continuous pulse ox. Adjust oxygen as needed. Recurrent major depressive disorder 05/18/2019 Assessment & Plan (01/06/2020 10:21 PM LAY OUT CARPENTER): Continue home medications Anxiety 05/11/2019 UTI (urinary tract infection) 05/11/2019 Chronic interstitial cystitis 07/20/2016 Overview (07/23/2016): Interstitial cystitis Hypertension 07/05/2012 Overview (05/27/2016): Hypertension Assessment & Plan (03/22/2022 1:52 PM LAY OUT CARPENTER): Controlled with medication - continue medication per PCP - instructed family to make sure to have f/u with PCP for evaluation and management of pain after a fall. Assessment & Plan (09/05/2020 2:25 PM CDT): Controlled with medication - low salt diet - continue medication per PCP Assessment & Plan (01/06/2020 10:17 PM LAY OUT CARPENTER): Pressure is slightly elevated. Home medications have been resumed with hold parameters. Continue monitor. Gastroesophageal reflux disease 07/05/2012 Overview (05/27/2016): GERD (gastroesophageal reflux disease) Hyperlipidemia 07/05/2012 Overview (05/27/2016): Hyperlipemia Assessment & Plan (01/06/2020 10:18 PM LAY OUT CARPENTER): Continue statin Personal history of primary malignant neoplasm o f lung 07/05/2012 Overview (05/28/2016): History of lung cancer Cystitis 07/05/2012 Overview (05/28/2016): Cystitis Anticoagulant adverse reaction, initial encounte r Sepsis without acute organ dysfunction Dehydration Confusion and disorientation Resolved Problems Problem Noted Date Diagnosed Date Resolved Date Hypokalemia 01/06/2020 01/09/2020 Assessment & Plan (01/06/2020 10:21 PM LAY OUT CARPENTER): Likely secondary to vomiting and diarrhea. Patient received replacement. Will repeat potassium level. Will also check a Mag. Replete as needed. Immunizations Name Administration Dates Next Due H1N1 All Forms 02/08/2009 Influenza, Quadrivalent, Spl it, Preservative Free, Intramuscular 11/16/2018 Influenza, Trivalent, High D ose, Split, Preservative Free, Intramuscular 11/21/2017 Influenza, Trivalent, IM (MDV) 08/02/2018 Pneumococcal Polysaccharide PPV23 09/21/2018,02/2008 Surgical History Surgery Date Site/Laterality Comments OTHER SURGICAL HISTORY 02/21/2007 - 02/21/2008 Cancer, lung: right lobe removed OTHER SURGICAL HISTORY 02/21/1957 - 02/20/1958 : 14 hr labor vaginal forceps OTHER SURGICAL HISTORY 02/21/1958 - 02/20/1959 : vaginal forceps OTHER SURGICAL HISTORY 02/21/1963 - 02/21/1964 : vaginal forceps OTHER SURGICAL HISTORY 02/21/1965 - 02/20/1966 : vaginal forceps CATARACT EXTRACTION 02/21/2010 - 02/20/2011 Right Cataract extraction OTHER SURGICAL HISTORY Lung cancer: Thoracotomy, right mid lobe OTHER SURGICAL HISTORY D&C - OTHER SURGICAL HISTORY Interstitial cystitis: Cystoscopy with bladder biopsy OTHER SURGICAL HISTORY Pelvic organ prolapse: Bladder repair OTHER SURGICAL HISTORY 02/22/2016 - 02/20/2017 Postmenopausal bleeding, benign polyp - hysteroscopy, D&C, polypectomy Medical History Medical History Date Comments Cancer of lung (HCC) 2006 Cancer, shikha g Hx Other Medical 1979 jose l zaidi Hx Other Medical 2010 c-diff Hx Other Medical 2010 spot on left janell ng Hx Other Medical stomach, bowel or kidney problems Hx Other Medical kidney or bladd er problems Hx Other Medical breast problems Hypertension Hypertension Hyperlipidemia Hyperlipidemia Hx Other Medical 1957 ; Outc ome: 40 week 7 lb(s) 7 oz Female Hx Other Medical 1958 ; Outc ome: 40 week 6 lb(s) 15 oz Male Hx Other Medical 1963 ; Outc ome: 40 week 7 lb(s) 15 oz Male Hx Other Medical 1965 ; Outc ome: 40 week 8 lb(s) 9 oz Male Hx Other Medical Lung cancer; Co mments: RED 07/22/2016 - Hx Other Medical Interstitial cy stitis; Comments: RED 07/22/2016 - Hx Other Medical Pelvic organ pr olapse; Comments: RED 07/22/2016 - Diabetes (HCC) Family History Medical History Relation Name Comments Heart disease Mother Heart disease; Hypertension Mother Hypertension; Diabetes Other 1 Family history of Diabetes mellitus; Hypertension Other 2 Family history of Hypertension; Glaucoma Son Glaucoma; Relation Name Status Comments Mother Other 1 Other 2 Son Social History Tobacco Use Types Packs/Day Years [...] on file Legal Sex Female 1:47 AM LAY OUT CARPENTER Gender Identity Not on file Sexual Orientation Not on file Obstetrics History Para Term AB IAB SAB Ectopic Multiple Livin g Live Births 5 4 4 0 1 4 Date Outcome GA Total Labor Labor/2nd/3rd Weight Sex Type Anes PTL Debby A1 A5 Name Clin Term Term Term Term AB Last Filed Vital Signs Vital Sign Reading Time Taken Comments Blood Pressure 132/78 03/22/2022 1:01 PM LAY OUT CARPENTER Pulse 68 01/11/2020 6:00 PM LAY OUT CARPENTER Temperature 35.9 ??C (96.7 ??F) 01/11/2020 3:15 PM CS T Respiratory Rate 18 01/11/2020 3:15 PM LAY OUT CARPENTER Oxygen Saturation 93% 01/11/2020 6:00 PM LAY OUT CARPENTER Inhaled Oxygen Concentration - - Weight 75 kg (165 lb 6.4 oz) 03/22/2022 1:01 PM LAY OUT CARPENTER Height 162.6 cm (5' 4 ) 03/22/2022 1:01 PM LAY OUT CARPENTER Body Mass Index 28.39 03/22/2022 1:01 PM LAY OUT CARPENTER Plan of Treatment Health Maintenance Due Date Last Done Comments Osteoporosis Screening-Bone Density Scan 1940 DTaP/Tdap/Td Vaccine (1 - Tdap) 1949 Hepatitis B Screening 1956 Zoster Vaccine (1 of 2) 1988 Well Visit 65+ 09/08/2003 Pneumococcal vaccine 65+ (2 of 2 - PCV) 09/22/2019 09/21/2018, 11/21/2008 Depression Screening 01/05/2021 01/06/2020, 05/10/19 20 Fall Risk Assessment 01/10/2021 01/11/2020 Influenza Vaccine (#1) 2023 0, 11/16/2018, 08/02/2018, Additional history exists Insurance COMMERCIAL GENERIC MEDICARE RAILROAD MEDICARE RAILROAD COMMERCIAL GENERIC MEDICARE RAILROAD COMMERCIAL GENERIC MEDICARE RAILROAD Advance Directives For more information, please contact: [phone] * LIMITED - No CPR (Latest Code [...] 4:32 AM 05/11/2019 4:22 PM Care Teams Medical Malpractice Paralegal Relationship Specialty Start Date End Date Josué Berry MD [address] [place] [address] PCP - General 05/10/19
[2024-03-23 12:00] LABS: Anion Gap 13 mmol/L (4-12); Blood Urea Nitrogen 17 mg/dL (7-17); Calcium 9.7 mg/dL (8.4-10.2); Carbon Dioxide 24 mmol/L (22-30); Chloride 103 mmol/L (98-107); Estimated Glomerular Filt Rate 58; Glucose 143 mg/dL (65-110); Potassium 4.5 mmol/L (3.4-5.0); Sodium 140 mmol/L (137-145)
== END 2024-03-23 11:00 | disposition home or self-care (01) ==
LOC: ANHSURGERY 11:07
PROVIDERS: Anesthesiology; PCP Family Medicine; Visit Provider Urology
DX: Z01.812 Encounter for preprocedural laboratory examination (principal); E11.9 Type 2 diabetes mellitus without complications; Z79.899 Other long term (current) drug therapy
CPT/HCPCS: 36415; 80048

== ENCOUNTER 2024-03-30 00:29 | Day surgery (SDC) | payer OTHER, MEDICARE, SELFPAY ==
[2024-03-19 09:21] VITALS: BMI 29.7
--- NOTE | 2024-03-19 09:32 | PC.NURSE ---
Report to the Outpatient Waiting Room, entrance under the green pavilion located off [facility], at time __08:30AM on date . Planned Procedure Time: ___10:30AM .? Time changes happen often and if your time is changed the preop area will call you the afternoon before. - You and your visitor will be asked to self-screen and do not enter if you have any COVID symptoms. Please call surgeon if you need to reschedule. - A mask is optional within the hospital at this time. Patients may have clear liquids (water, carbonated beverages, clear teas, apple juice) until 3 hours prior to surgery with a maximum of 20 ounces. - No food from midnight until time of surgery and no smoking. This includes no chewing gum, candy or mints.(0730am) Take only the following medications with a SIP of water on the morning of surgery: ___Amlodipine, Citalopram, Duloxetine, Tramolol if needed DO NOT STOP ANY OF YOUR OTHER PRESCRIPTION MEDICATIONS PRIOR TO SURGERY EXCEPT THE FOLLOWING Medications to discontinue per physician Eliquis for [address] Delarosa (per son info) Date to take last dose____03/27/24 Hold all Vitamins,Supplements,NSAIDS, Herbs and Probiotics for [address] Delarosa- Date to take last dose is 03/22/24. ( per Jazzy Alberts at [facility]) Please no make-up, nail arabic, hairspray, perfume, deodorant, or body powder the day of surgery.? No jewelry (including any body piercings) or valuables the day of surgery, leave them at home.? Please take a shower or bath the night before, or the morning of, surgery with an antibacterial soap.? Wear comfortable, loose fitting clothing.? Children are encouraged to wear pajamas. - Jewelry must be removed prior to entering the operating room.? Rings and piercings that are not removed may be cut off. - The hospital will not accept responsibility for valuables.? - Please leave all valuables, including medications, at home the day of surgery. If you are going home after surgery, a licensed [employer] driver must drive you home.? - NO public transportation without another adult if you receive anesthesia. - We recommend that an adult stay with you for 24 hours following discharge. - We also recommend that you do not drive, make important decision, drink alcoholic beverages, or take any drugs that were not prescribed by your health care provider for at least 24 hours after your discharge time. Follow any additional instructions given to you from your surgeon. Telephone instructions given to ___Hong Hylton and Letter faxed to [facility]- attn _Jazzy Alberts and asked if any additional questions and then verbalized understanding. Patient advised to call surgeon office or pre surgery nurse liaison [phone] if any additional questions.
--- NOTE | 2024-03-29 12:03 | P.HP_ITS ---
H&P: HPI History of Present Illness Date/Time: 03/29/24 12:03 Chief Complaint: Hunner ulcer Narrative: presents for repeat steroid injection Review of Systems Review of Systems: All systems reviewed & are unremarkable except as noted in HPI and below PMFSH Past Medical History Medical History Adrenal insufficiency Chronic steroid use GERD (gastroesophageal reflux disease) Anticoagulant long-term use Pulmonary embolism ARDEN (obstructive sleep apnea) History of lung cancer Hyperlipidemia Hypertension Surgical History Surgical History History of lobectomy of lung right middle lobe Social History Social History Smoking status: Never smoker Second hand tobacco smoke exposure: No Alcohol intake: never Substance use: never Substance use type: does not use Living arrangements: half-way Additional living arrangements comments: [facility] group home Gender identity (if verbalized by the patient): Female Spiritual care concerns: No Meds Home Medications and Allergies Home Medications ?Medication ?Instructions ?Recorded ?Confirmed ?Type fluticasone propionate 50 1 spray intranasal DAILY 03/20/19 03/19/24 History mcg/actuation nasal spray,suspension (Flonase Allergy Relief) hydrocortisone 10 mg tablet 10 mg PO BID 03/20/19 03/19/24 History omeprazole 40 mg capsule,delayed 20 mg PO DAILY 03/20/19 03/19/24 History release simvastatin 20 mg tablet 20 mg PO HS 03/20/19 03/19/24 History fexofenadine 180 mg tablet 180 mg PO DAILY PRN Congestion 09/19/19 03/19/24 History (Loraine Allergy) metformin 500 mg tablet 500 mg PO BID 05/27/20 03/19/24 History methenamine-sod ant-salicyl 162 1 tablet PO QID PRN Bladder Spasms 05/27/20 03/19/24 History mg-97 mg-65 mg tablet apixaban 2.5 mg tablet (Eliquis) 2.5 mg PO BID 10/07/21 03/19/24 History lisinopril 10 mg tablet 10 mg PO QAM 10/07/21 03/19/24 History acetaminophen 325 mg tablet 325 mg PO BID PRN Pain 08/26/22 03/19/24 History citalopram 10 mg tablet 20 mg PO DAILY 08/26/22 03/19/24 History cranberry fruit 450 mg tablet 450 mg PO DAILY 08/26/22 03/19/24 History (cranberry) lactobacillus combo #5 150 mg (2 150 mg PO DAILY 08/26/22 03/19/24 History billion cell) tablet,delayed release loperamide 2 mg capsule 2 mg PO Q6H PRN Loose Stool 08/26/22 03/19/24 History ondansetron HCl 4 mg tablet 4 mg PO PRN PRN Nausea 08/26/22 03/19/24 History phenazopyridine 200 mg tablet 200 mg PO TID PRN pain 6 doses #30 09/03/22 03/19/24 Rx (Pyridium) tabs acetaminophen 500 mg tablet 500 mg PO BID PAIN 03/17/23 03/19/24 History amlodipine 10 mg tablet 10 mg PO DAILY 03/17/23 03/19/24 History ascorbic acid 1,000 1 ea PO DAILY 03/17/23 03/19/24 History yy-txwrbqjqpwlo-rlzfxozd powder effervescent pack (Emergen-C) diphenhydramine HCl 25 mg capsule 25 mg PO Q6H PRN Congestion 03/17/23 03/19/24 History duloxetine 30 mg capsule,delayed 30 mg PO DAILY 03/17/23 03/19/24 History release furosemide 20 mg tablet 20 mg PO DAILY 03/17/23 03/19/24 History guaifenesin 100 mg/5 mL oral liquid 100 mg PO Q6H PRN Cough 03/17/23 03/19/24 History tramadol 50 mg tablet 50 mg PO BID pain 03/17/23 03/19/24 History Allergies Allergy/AdvReac Type Severity Reaction Status Date / Time sulfamethoxazole Allergy Unknown HIVES Verified 03/19/24 09:15 trimethoprim Allergy Unknown HIVES Verified 03/19/24 09:15 buspirone AdvReac BODY ACHES Verified 03/19/24 09:15 [facility] AdvReac Unknown Verified 03/19/24 09:15 ciprofloxacin AdvReac BODY ACHES Verified 03/19/24 09:15 sertraline AdvReac VERTIGO Verified 03/19/24 09:15 Exam Narrative: no acute distress normal breathing Assessment and Plan Assessment and plan (1) Hunner's ulcer: Code(s): N30.10 - Interstitial cystitis (chronic) without hematuria Status: Acute Assessment and Plan: cystoscopy, bladder biopsy, steroid injections
--- NOTE | 2024-03-29 17:17 | P.PNAN_ITS ---
Anes - Initial Pre Proc Eval Procedure: Operation Date: 03/30/24 09:00 Proposed Procedures p Cystoscopy, Bladder Biopsy with Steroid Injection - John Delarosa MD Date/Time: 03/29/24 17:17 Surgeon: John Delarosa MD Pre Op Diagnosis: hunners ulcer Patient Data Age: 83 Gender: F Height: 1.65 m Weight: 81 kg Allergies Allergy/AdvReac Type Severity Reaction Status Date / Time sulfamethoxazole Allergy Unknown HIVES Verified 03/30/24 07:46 trimethoprim Allergy Unknown HIVES Verified 03/30/24 07:46 buspirone AdvReac BODY ACHES Verified 03/30/24 07:46 cariprazine (From [facility]) AdvReac Unknown Verified 03/30/24 07:46 ciprofloxacin AdvReac BODY ACHES Verified 03/30/24 07:46 sertraline AdvReac VERTIGO Verified 03/30/24 07:46 Home Medications ?Medication ?Instructions ?Recorded ?Confirmed ?Type fluticasone propionate 50 1 spray intranasal DAILY 03/20/19 03/19/24 History mcg/actuation nasal spray,suspension (Flonase Allergy Relief) hydrocortisone 10 mg tablet 10 mg PO BID 03/20/19 03/19/24 History omeprazole 40 mg capsule,delayed 20 mg PO DAILY 03/20/19 03/19/24 History release simvastatin 20 mg tablet 20 mg PO HS 03/20/19 03/19/24 History fexofenadine 180 mg tablet 180 mg PO DAILY PRN Congestion 09/19/19 03/19/24 History (Loraine Allergy) metformin 500 mg tablet 500 mg PO BID 05/27/20 03/19/24 History methenamine-sod ant-salicyl 162 1 tablet PO QID PRN Bladder Spasms 05/27/20 03/19/24 History mg-97 mg-65 mg tablet apixaban 2.5 mg tablet (Eliquis) 2.5 mg PO BID 10/07/21 03/19/24 History lisinopril 10 mg tablet 10 mg PO QAM 10/07/21 03/19/24 History acetaminophen 325 mg tablet 325 mg PO BID PRN Pain 08/26/22 03/19/24 History citalopram 10 mg tablet 20 mg PO DAILY 08/26/22 03/19/24 History cranberry fruit 450 mg tablet 450 mg PO DAILY 08/26/22 03/19/24 History (cranberry) lactobacillus combo #5 150 mg (2 150 mg PO DAILY 08/26/22 03/19/24 History billion cell) tablet,delayed release loperamide 2 mg capsule 2 mg PO Q6H PRN Loose Stool 08/26/22 03/19/24 History ondansetron HCl 4 mg tablet 4 mg PO PRN PRN Nausea 08/26/22 03/19/24 History phenazopyridine 200 mg tablet 200 mg PO TID PRN pain 6 doses #30 09/03/22 03/19/24 Rx (Pyridium) tabs acetaminophen 500 mg tablet 500 mg PO BID PAIN 03/17/23 03/19/24 History amlodipine 10 mg tablet 10 mg PO DAILY 03/17/23 03/19/24 History ascorbic acid 1,000 1 ea PO DAILY 03/17/23 03/19/24 History lg-rlodfrnsrzwc-tuhjhorq powder effervescent pack (Emergen-C) diphenhydramine HCl 25 mg capsule 25 mg PO Q6H PRN Congestion 03/17/23 03/19/24 History duloxetine 30 mg capsule,delayed 30 mg PO DAILY 03/17/23 03/19/24 History release furosemide 20 mg tablet 20 mg PO DAILY 03/17/23 03/19/24 History guaifenesin 100 mg/5 mL oral liquid 100 mg PO Q6H PRN Cough 03/17/23 03/19/24 History tramadol 50 mg tablet 50 mg PO BID pain 03/17/23 03/19/24 History Patient hx anesthesia problems: none Family hx anesthesia problems: none Results Review: All pre-operative results and documents have been reviewed as part of the pre- operative evaluation. [facility] Past Medical History Medical History Adrenal insufficiency Chronic steroid use GERD (gastroesophageal reflux disease) Anticoagulant long-term use Pulmonary embolism ARDEN (obstructive sleep apnea) History of lung cancer Hyperlipidemia Hypertension Surgical History Surgical History History of lobectomy of lung right middle lobe Social History Social History Smoking status: Never smoker Second hand tobacco smoke exposure: No Alcohol intake: never Substance use: never Substance use type: does not use Living arrangements: custodial Additional living arrangements comments: [facility] senior living Gender identity (if verbalized by the patient): Female Spiritual care concerns: No Anes - Eval Final PreProcedure Day of Procedure 03/29/24 17:17 Patient weight: overweight Heart: regular rate and rhythm Lungs: clear to auscultation Airway: Mallampati scale class II Neurological: alert and oriented Last oral intake: >/= 8 hours ASA classification: III Emergent: no Anesthetic plan: proceed Anesthesia type and monitoring: general GIVS and standard monitoring Results Review: All pre-operative results and documents have been reviewed as part of the pre-operative evaluation. Informed Consent: The patient's anesthetic plan and its attendant risks and benefits were discussed with the patient/family/POA. Questions were solicited and answers provided to the satisfaction of the patient/family/POA.
--- OUTSIDE RECORDS SUMMARY | 2024-03-30 00:34 | XMS_ITS | Clinical Summary ---
Author Organization [facility] Address [address] [place] [address] Care Team Providers Care Psychopaedic Nurse Name Role Phone Josué Berry MD Primary Care Provider + Allergies Active Allergy Reactions Criticality Noted Date Comments Ciprofloxacin Muscle pain Medium 07/22/2015 Montelukast Sodium Muscle pain Medium 10/31/2013 Sulfa (Sulfonamide Antibiotics) Rash Reaction: Rash, Sulfanilamide Rash Medium Reaction: Rash, Reaction: Rash, Trimethoprim Unknown 07/04/2018 Medications ALPRAZolam (XANAX) 0.25 [...] 01/06/2020 Assessment & Plan (01/06/2020 10:26 PM MEDICAL AFFAIRS SPECIALIST): Multiple family members are positive. Patient's is in the hospital in [place]. She is requiring oxygen. Will start patient on Decadron and remdesivir. Patient is not sure she wants a transfusion and wants to think about convalescent plasma. Printout of information for convalescent plasma was given to patient. Continue supportive care. Adrenal insufficiency 01/06/2020 Assessment & Plan (03/22/2022 1:51 PM MEDICAL AFFAIRS SPECIALIST): Diagnosed around 2017 Used to see [facility] in [place], [place] Patient is clinically stable Labs on [...] CDT): Diagnosed around 2017 Used to see [facility] in [place], [place] Patient is clinically stable Labs on 06/26/20 Sodium 140 Potassium 4.0 with normal kidney functions Plan: Continue same dose of Hydrocortisone Obtain copy of records from previous [facility] Check labs this week Patient is wearing medical alert tag Reviewed with patient the sick day protocol for steroids, and need to go to ER if having vomiting and not able to keep medications down. Patient understands and agrees with above plan. Assessment & Plan (01/06/2020 10:18 PM MEDICAL AFFAIRS SPECIALIST): Currently showing no signs of adrenal insufficiency. Will continue to monitor however if patient becomes hypotensive will switch Decadron to stress dose Solu-Cortef. History of pulmonary embolism 01/06/2020 Assessment & Plan (01/06/2020 10:19 PM MEDICAL AFFAIRS SPECIALIST): Patient is on Coumadin with a slightly supratherapeutic INR. Coumadin has been resumed with pharmacy to dose. Pre-diabetes 01/06/2020 Assessment & Plan (01/06/2020 10:18 PM MEDICAL AFFAIRS SPECIALIST): Patient takes metformin at home. Will be starting Decadron. Will order NPH with Decadron and monitor on a mid dose sliding scale. Acute hypoxemic respiratory failure 01/06/2020 Assessment & Plan (01/06/2020 10:20 PM MEDICAL AFFAIRS SPECIALIST): Patient does not use oxygen at home. She presented with an SpO2 86% on room air. She is requiring supplemental oxygen via nasal cannula, 2 L. continue to monitor on continuous pulse ox. Adjust oxygen as needed. Recurrent major depressive disorder 05/18/2019 Assessment & Plan (01/06/2020 10:21 PM MEDICAL AFFAIRS SPECIALIST): Continue home medications Anxiety 05/11/2019 UTI (urinary tract infection) 05/11/2019 Chronic interstitial cystitis 07/20/2016 Overview (07/23/2016): Interstitial cystitis Hypertension 07/05/2012 Overview (05/27/2016): Hypertension Assessment & Plan (03/22/2022 1:52 PM MEDICAL AFFAIRS SPECIALIST): Controlled with medication - continue medication per PCP - instructed family to make sure to have f/u with PCP for evaluation and management of pain after a fall. Assessment & Plan (09/05/2020 2:25 PM CDT): Controlled with medication - low salt diet - continue medication per PCP Assessment & Plan (01/06/2020 10:17 PM MEDICAL AFFAIRS SPECIALIST): Pressure is slightly elevated. Home medications have been resumed with hold parameters. Continue monitor. Gastroesophageal reflux disease 07/05/2012 Overview (05/27/2016): GERD (gastroesophageal reflux disease) Hyperlipidemia 07/05/2012 Overview (05/27/2016): Hyperlipemia Assessment & Plan (01/06/2020 10:18 PM MEDICAL AFFAIRS SPECIALIST): Continue statin Personal history of primary malignant neoplasm o f lung 07/05/2012 Overview (05/28/2016): History of lung cancer Cystitis 07/05/2012 Overview (05/28/2016): Cystitis Anticoagulant adverse reaction, initial encounte r Sepsis without acute organ dysfunction Dehydration Confusion and disorientation Resolved Problems Problem Noted Date Diagnosed Date Resolved Date Hypokalemia 01/06/2020 01/09/2020 Assessment & Plan (01/06/2020 10:21 PM MEDICAL AFFAIRS SPECIALIST): Likely secondary to vomiting and diarrhea. Patient [...] on file Legal Sex Female 1:47 AM MEDICAL AFFAIRS SPECIALIST Gender Identity Not on file Sexual Orientation [...] Comments Blood Pressure 132/78 03/22/2022 1:01 PM MEDICAL AFFAIRS SPECIALIST Pulse 68 01/11/2020 6:00 PM MEDICAL AFFAIRS SPECIALIST Temperature 35.9 C (96.7 F) 01/11/2020 3:15 PM MEDICAL AFFAIRS SPECIALIST Respiratory Rate 18 01/11/2020 3:15 PM MEDICAL AFFAIRS SPECIALIST Oxygen Saturation 93% 01/11/2020 6:00 PM MEDICAL AFFAIRS SPECIALIST Inhaled Oxygen Concentration - - Weight 75 kg (165 lb 6.4 oz) 03/22/2022 1:01 PM MEDICAL AFFAIRS SPECIALIST Height 162.6 cm (5' 4 ) 03/22/2022 1:01 PM MEDICAL AFFAIRS SPECIALIST Body Mass Index 28.39 03/22/2022 1:01 PM MEDICAL AFFAIRS SPECIALIST Plan of Treatment Health Maintenance Due Date [...] Advance Directives For more information, please contact: [phone] * LIMITED - No CPR (Latest Code [...] 4:32 AM 05/11/2019 4:22 PM Care Teams Psychopaedic Nurse Relationship Specialty Start Date End Date Josué Berry MD [address] [place] [address] PCP - General 05/10/19
--- OUTSIDE RECORDS SUMMARY | 2024-03-30 00:34 | XMS_ITS | Clinical Summary ---
Author Organization [facility] Address [address] [place] [address] Care Team Providers Care Laborer Dairy Farm Name Role Phone Provider, None Primary Care [...] GENERIC on file MEDICARE RAILROAD Care Teams Laborer Dairy Farm Relationship Specialty Start Date End Date Provider, None [place] PCP - General 04/29/21
--- OUTSIDE RECORDS SUMMARY | 2024-03-30 00:34 | XMS_ITS | Encounter Summary ---
Author Organization [facility] Address [address] [place] [address] Care Team Providers Care Cherry Sorter Name Role Phone Jimenez Rhodes MD Primary Care Provider [phone] Kelli Cunha MD Unavailable [phone] Josué Berry MD Primary Care Provider [phone] Segundo Paige MD Unavailable [phone] Encounter Details Date Type Department Care Team (Late st Contact Info) Description 04/30/2015 Abstract [facility] AT [address] [address] Kelli Cunha MD [address] [place] [address] Social History Tobacco Use Types [...] Rule Out 03/11/2021 03/11/2021 03/11/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
--- OUTSIDE RECORDS SUMMARY | 2024-03-30 00:34 | XMS_ITS | Encounter Summary ---
Author Organization [facility] Address [address] 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 documented in this encounter Results * CULTURE, BLOOD (03/30/2019 9:45 PM REACH LIFT TRUCK DRIVER) CULTURE RESULTS NO GROWTH WITHIN 5 DAYS, FINAL RESULT 04/05/2019 2:02 PM REACH LIFT TRUCK DRIVER [facility] Culture of specimen by commercial kit (procedure) BLOOD SPECIMEN / Unknown No Phlebotomy Charged / Unknown 03/30/2019 9:45 PM REACH LIFT TRUCK DRIVER 03/31/2019 1:11 PM REACH LIFT TRUCK DRIVER us Jann Mccormick MD MICROBIOLOGY - GENERAL ORDER VIDYA Final Result [facility] [address] [place] [address], [place] documented in this encounter Visit Diagnoses Not on filedocumented in this encounter Care Teams Passenger Interline Clerk Relationship Specialty Start Date End Date Provider, None [place] PCP - General 04/29/21 documented as of this encounter
--- OUTSIDE RECORDS SUMMARY | 2024-03-30 00:34 | XMS_ITS | Continuity of Care Document ---
Author Organization [employer] [facility] Address [address] [place] [address] Phone Care Team Providers Care Labor Relations Or Personnel Negotiator Name Role Phone Lorie Lin Unavailable Unavailable [...] Providers Copied on Encounter OFFICE/OUTPA TIENT VISIT, [facility], [address] [place] [address], [facility], tel:[phone] [place] UTI (chief complaint) DysuriaAcute cystitis with hematuria 3 Bridget Melo. [address] [place] [address], [facility], . tel:[phone] OFFICE/OUTPA TIENT VISIT, [facility], [address] [place] [address], [facility], tel: [phone] [place] UTI (chief complaint) Urinary symptom or sign 2 Nir Denilson. [address] [place] [address], [facility], . tel: [phone] OFFICE/OUTPA TIENT VISIT, [facility], [address] [place] [address], [facility], tel:[phone] [place] R EYE SWELLING (chief complaint) Seasonal allergies Nov- 2 Rhodes Gulam. [address] [place] [address], [facility], . tel: [phone] OFFICE/OUTPA TIENT VISIT, [facility], [address] [place] [address], [facility], tel:[phone] [place] WHITE SPOTS ON TONGUE (chief complaint) ThrushAllergi c conjunctiviti s, bilateral Oct-0 2 Breckon Lorie. [address] [place] [address], [facility], . tel: [phone] OFFICE/OUTPA TIENT VISIT, [facility], [address] [place] [address], [facility], tel: [phone] [place] UTI (chief complaint) Acute cystitis with hematuria Oct- 2 Maggieckon Lorie. [address] [place] [address], [facility], . tel: [phone] OFFICE/OUTPA TIENT VISIT, [facility], [address] [place] [address], [facility], [place] tel: [phone] [place] UTI (chief complaint) Acute cystitis with hematuria 2 Maggieckon Lorie. [address] [place] [address], [facility], . tel:[phone] OFFICE/OUTPA TIENT VISIT, [facility], [address] [place] [address], [facility], tel:[phone] [place] UTI (chief complaint)S INUS INFECTION (chief complaint) UTI (urinary tract infection), uncomplicated Acute cystitis without hematuria 2 Jaxon Kelley. [address] [place] [address], [facility], . tel:[phone] OFFICE/OUTPA TIENT VISIT, [facility], [address] [place] [address], [facility], tel:[phone] [place] COUGH (chief complaint) CoughContact With And (suspected) Exposure To COVID-19Bronc hitis 1 Jay Milagro. [address] [place] [address], [facility], . tel:[phone] OFFICE/OUTPA TIENT VISIT, [facility], [address] [place] [address], [facility], tel:[phone] [place] Cold symptoms (chief complaint) Contact With And (suspected) Exposure To COVID-19Acute sinusitis, unspecified 1 Laron Abbasi. [address] [place] [address], [facility], . tel:[phone] OFFICE/OUTPA TIENT VISIT, [facility], [address] [place] [address], [facility], tel:[phone] [place] BACK PAIN (chief complaint)h pi (chief complaint) Acute right-sided thoracic back pain 1 No Information OFFICE/OUTPA TIENT VISIT, [facility], [address] [place] [address], [facility], tel:[phone] [place] Sinus symptoms (acute) (chief complaint) Acute recurrent maxillary sinusitisCont act With And (suspected) Exposure To COVID-19 1 Nir Goff. [address] [place] [address], [facility], . tel:[phone] OFFICE/OUTPA TIENT VISIT, [facility], [address] [place] [address], [facility], tel:[phone] [place] ARM REDNESS/SWE LLING (chief complaint) Cellulitis of left forearm 1 Marvin Kennedy. [address], [place], [facility], . tel: [phone] OFFICE/OUTPA TIENT VISIT, [facility], [address] [place] [address], [facility], tel: [phone] [place] UTI (chief complaint) Abnormal urine findings Jaguar-0 1 Nir Goff. [address] [place] [address], [facility], . tel: [phone] [facility], [address] [place] [address], [facility], tel:[phone] [place] COVID TEST FOR PROCEDURE (chief complaint)O RDERED BY DR SHAHRZAD CARRENO (chief complaint) Encounter For Screening For Covid-19 May-0 1 Jay Humphrey. [address] [place] [address], [facility], . tel: OFFICE/OUTPA TIENT VISIT, [facility], [address] [place] [address], [facility], tel: [phone] [place] VERTIGO (chief complaint) Vertigo Apr-0 1 Nir Goff. [address] [place] [address], [facility], . tel: [phone] OFFICE/OUTPA TIENT VISIT, [facility], [address] [place] [address], [facility], tel: [phone] [place] UTI (chief complaint) Dysuria Oct-2 0 Marvin Mckinnondal. [address], [place], [facility], [place]. tel:[phone] OFFICE/OUTPA TIENT VISIT, [facility], [address] [place] [address], [facility], [place] tel: [phone] [place] aching all over (chief complaint) Acute maxillary sinusitis, unspecified May- 0 Justyn Lam. [address] [place], [place], [facility], [place]. tel:[phone] OFFICE/OUTPA TIENT VISIT, [facility], [address] [place] [address], [facility], [place] tel: [phone] [place] BLOOD PRESSURE (chief complaint) Depression 0 Rhodes Gulam. [address] [place] [address], [facility], . tel: [phone] OFFICE/OUTPA TIENT VISIT, [facility], [address] [place] [address], [facility], tel: [phone] [place] ELEVATED BLOOD PRESSURE (chief complaint) HTNAnxiety disorder, unspecifiedAd renal insufficiency 0 Rhodes Gulam. [address] [place] [address], [facility], . tel: [phone] OFFICE/OUTPA TIENT VISIT, [facility], [address] [place] [address], [facility], tel:[phone] [place] IP F/U (chief complaint) Hospital discharge follow-upHTNA nxiety disorder, unspecifiedAd renal insufficiency 0 Rhodes Gulam. [address] [place] [address], [facility], . tel: [phone] OFFICE/OUTPA TIENT VISIT, [facility], [address] [place] [address], [facility], tel:[phone] [place] follow up (chief complaint) Urinary tract infection, site not specifiedAdre nal insufficiency Pulmonary embolism, bilateral 0 Rhodes Gulam. [address] [place] [address], [facility], . tel: [phone] OFFICE/OUTPA TIENT VISIT, [facility], [address] [place] [address], [facility], tel:[phone] [place] FOLLOW UP (chief complaint) Upper respiratory infectionAdre nal insufficiency 0 Rhodes Gulam. [address] [place] [address], [facility], . tel: [phone] OFFICE/OUTPA TIENT VISIT, [facility], [address] [place] [address], [facility], tel:[phone] [place] SINUS ISSUES (chief complaint) WeaknessUpper respiratory infection Feb-0 0 Nir Goff. [address] [place] [address], [facility], . tel: [phone] OFFICE/OUTPA TIENT VISIT, [facility], [address] [place] [address], [facility], [place] tel: [phone] [place] FOLLOW UP (chief complaint) Urinary tract infection, site not specifiedAdre nal insufficiency 9 Rhodes Gulam. [address] [place] [address], [facility], [place]. tel: [phone] OFFICE/OUTPA TIENT VISIT, [facility], [address] [place] [address], [facility], [place] tel: [phone] [place] UTI (chief complaint) Unspecified adrenocortica l insufficiency Hematuria 9 Jay Milagro. [address] [place] [address], [facility], [place]. tel: [phone] OFFICE/OUTPA TIENT VISIT, [facility], [address] [place] [address], [facility], [place] tel: [phone] [place] BODY ACHES (chief complaint) Adrenal insufficiency Upper respiratory infectionPulm onary embolism, bilateral 9 Rhodes Gulam. [address] [place] [address], [facility], [place]. tel: [phone] [facility], [address] [place] [address], [facility], [place] tel: [phone] [place] No Information 9 Rhodes Gulam. [address] [place] [address], [facility], [place]. tel: [phone] [facility], [address] [place] [address], [facility], [place] tel: [phone] [place] Screening mammogram, encounter for 9 Rhodes Gulam. [address] [place] [address], [facility], . tel: [phone] [facility], [address] [place] [address], [facility], [place] tel:[phone] [place] LAB RESULT//FOL LOWUP (chief complaint) Adrenal insufficiency Nausea 9 Rhodes Gulam. [address] [place] [address], [facility], . tel:[phone] OFFICE/OUTPA TIENT VISIT, [facility], [address] [place] [address], [facility], tel:[phone] [place] EYE ISSUES (chief complaint) Facial edemaVisual changes 0 9 Rhodes Gulam. [address] [place] [address], [facility], . tel:[phone] OFFICE/OUTPA TIENT VISIT, [facility], [address] [place] [address], [facility], tel:[phone] [place] Sinus symptoms (acute) (chief complaint) Acute recurrent maxillary sinusitis 9 Jay Milagro. [address] [place] [address], [facility], . tel:[phone] [facility], [address] [place] [address], [facility], tel:[phone] [place] No Information 9201 9 Rhodes Gulam. [address] [place] [address], [facility], . tel: [phone] OFFICE/OUTPA TIENT VISIT, [facility], [address] [place] [address], [facility], tel: [phone] [place] NAUSEA (chief complaint) Malaise Oct- 3-201 9 Nir Goff. [address] [place] [address], [facility], . tel:[phone] OFFICE/OUTPA TIENT VISIT, [facility], [address] [place] [address], [facility], tel:[phone] [place] SINUS F/U (chief complaint) Bilateral edema of lower extremityDerm atitisFollow- up exam after treatment Sep- 0-201 9 Rhodes Gulam. [address] [place] [address], [address], [place]. tel:[phone] OFFICE/OUTPA TIENT VISIT, [facility], [address] [place] [address], [facility], tel: [phone] [place] Sinus symptoms (acute) (chief complaint)U TI (chief complaint) Acute sinusitis, unspecified Sep-0 8 9 Stendeback Vania. [address] [place] [address], [facility], . tel: [phone] OFFICE/OUTPA TIENT VISIT, [facility], [address] [place] [address], [facility], [place] tel:[phone] [place] UTI (chief complaint) Abnormal urine findings 9 Nir Goff. [address] [place] [address], [facility], . tel: [phone] OFFICE/OUTPA TIENT VISIT, [facility], [address] [place] [address], [facility], tel: [phone] [place] Sinus symptoms (acute) (chief complaint)r chandrakant (chief complaint) Acute recurrent maxillary sinusitisSkin lesion Aug- 9 Nir Goff. [address] [place] [address], [facility], . tel: [phone] OFFICE/OUTPA TIENT VISIT, [facility], [address] [place] [address], [facility], tel: [phone] [place] COUGH (chief complaint) Unspecified acute lower respiratory infection 9 Jay Milagro. [address] [place] [address], [facility], [place]. tel:[phone] OFFICE/OUTPA TIENT VISIT, [facility], [address] [place] [address], [facility], [place] tel: [phone] [place] Cold symptoms (chief complaint) Acute maxillary sinusitis, unspecified 9 Rhodes Gulam. [address] [place] [address], [facility], . tel:[phone] OFFICE/OUTPA TIENT VISIT, [facility], [address] [place] [address], [facility], tel: [phone] [place] UTI (chief complaint)C omments (chief complaint) Recurrent UTIBilirubinu riaFasting hyperglycemia Apr-2 9 Rhodes Gulam. [address] [place] [address], [facility], . tel: [phone] OFFICE/OUTPA TIENT VISIT, [facility], [address] [place] [address], [facility], [place] tel:[phone] [place] DEPRESSION (chief complaint)l eg swelling (chief complaint) EdemaReactive depression Apr-1 9 9 Laorn Abbasi. [address] [place] [address], [facility], [place]. tel:[phone] OFFICE/OUTPA TIENT VISIT, [facility], [address] [place] [address], [facility], tel: [phone] [place] ER F/U (chief complaint) Recurrent UTIReactive depression May-0 9 Rhodes Gulam. [address] [place] [address], [facility], . tel: [phone] OFFICE/OUTPA TIENT VISIT, [facility], [address] [place] [address], [facility], tel: [phone] [place] UTI (chief complaint)m ed (chief complaint) Recurrent UTI May-0 9 Nir Goff. [address] [place] [address], [facility], . tel: [phone] OFFICE/OUTPA TIENT VISIT, [facility], [address] [place] [address], [facility], [place] tel: [phone] [place] UTI F/U<BE (chief complaint) Medication refillRecurre nt UTI Mar- 9 Rhodes Gulam. [address] [place] [address], [facility], [place]. tel:[phone] OFFICE/OUTPA TIENT VISIT, [facility], [address] [place] [address], [facility], tel: [phone] [place] UTI (chief complaint) Urinary tract infection, site not specified 9 Jay Milagro. [address] [place] [address], [facility], . tel:[phone] OFFICE/OUTPA TIENT VISIT, [facility], [address] [place] [address], [facility], tel: [phone] [place] UTI (chief complaint) Urinary tract infection, site not specified 9 Laron Abbasi. [address] [place] [address], [facility], . tel:[phone] OFFICE/OUTPA TIENT VISIT, [facility], [address] [place] [address], [facility], tel: [phone] [place] MED REFILL (chief complaint) HTNHyperlipid emia 9 Rhodes Gulam. [address] [place] [address], [facility], . tel: [phone] OFFICE/OUTPA TIENT VISIT, [facility], [address] [place] [address], [facility], tel: [phone] [place] Cough (chief complaint) Acute maxillary sinusitis, unspecified 8 Justyn Lam. [address] [place] [address], [facility], . tel:[phone] OFFICE/OUTPA TIENT VISIT, [facility], [address] [place] [address], [facility], tel: [phone] [place] Sinus symptoms (acute) (chief complaint) Acute sinusitis, unspecified 8 Nir Goff. [address] [place] [address], [facility], [place]. tel:[phone] OFFICE/OUTPA TIENT VISIT, [facility], [address] [place] [address], [facility], tel: [phone] [place] UTI (chief complaint)a ddt'l info (chief complaint) Urinary tract infection, site not specified 8 Stendealex Caro. [address] [place] [address], [address], [place]. tel:[phone] OFFICE/OUTPA TIENT VISIT, [facility], [address] [place] [address], [facility], [place] tel:[phone] [place] PRE OP PHYS (chief complaint) Pre-operative general physical examinationPe rsonal history of lung cancerHTN Sep-0 8 Laron Abbasi. [address] [place] [address], [facility], [place]. tel:[phone] OFFICE/OUTPA TIENT VISIT, [facility], [address] [place] [address], [facility], tel:[phone] [place] uti. (chief complaint) Urinary tract infection, site not specified 8 No Information OFFICE/OUTPA TIENT VISIT, [facility], [address] [place] [address], [facility], tel:[phone] [place] UTI (chief complaint) Chronic interstitial cystitis w/o hematuria 8 Rhodes Luclam. [address] [place] [address], [facility], . tel:[phone] OFFICE/OUTPA TIENT VISIT, [facility], [address] [place] [address], [facility], [place] tel:[phone] [place] UTI (chief complaint) Chronic interstitial cystitis w/o hematuria 8 Jay Milagro. [address] [place] [address], [facility], . tel:[phone] OFFICE/OUTPA TIENT VISIT, [facility], [address] [place] [address], [facility], [place] tel:[phone] [place] EST CARE (chief complaint) HTNGERD without esophagitisHy perlipidemiaP ersonal hx of other Ca of lungEncntr screen mammogram for malignant neoplasm of breast 8 Rhodes Gulam. [address] [place] [address], [facility], [place]. tel:[phone] OFFICE/OUTPA TIENT VISIT, [facility], [address] [place] [address], [facility], [place] tel:[phone] [place] Sinus symptoms (acute) (chief complaint) CoughAcute maxillary sinusitis, unspecified 8 Laron Abbasi. [address] [place] [address], [facility], [place]. tel:[phone] OFFICE/OUTPA TIENT VISIT, [facility], [address] [place] [address], [facility], [place] tel: [phone] [place] sinus (chief complaint) Acute sinusitis, unspecifiedAc [place] cystitis without hematuria 0 8 Rhodes Guleoncio. [address] [place] [address], [facility], [place]. tel: [phone] OFFICE/OUTPA TIENT VISIT, [facility], [address] [place] [address], [facility], [place] tel: [phone] [place] SINUS (chief complaint) DysuriaAcute non-recurrent frontal sinusitis 7 Rosa Mary Jo. [address] [place], [place], [facility], [place]. tel:[phone] OFFICE/OUTPA TIENT VISIT, [facility], [address] [place] [address], [facility], [place] tel: [phone] [place] UTI (chief complaint) Urinary tract infection, site not specified 3 7 Jay Milagro. [address] [place] [address], [facility], [place]. tel: [phone] OFFICE/OUTPA TIENT VISIT, [facility], [address] [place] [address], [facility], [place] tel: [phone] [place] UTI (chief complaint) Urinary tract infection, site not specified 7 Jay Milagro. [address] [place] [address], [facility], [place]. tel: [phone] OFFICE/OUTPA TIENT VISIT, [facility], [address] [place] [address], [facility], [place] tel: [phone] [place] Sinus symptoms (acute) (chief complaint) Acute non-recurrent pansinusitis 7 Rosa Mary Jo. [address] [place], [place], [facility], [place]. tel:[phone] OFFICE/OUTPA TIENT VISIT, [facility], [address] [place] [address], [facility], tel: [phone] [place] Sinus symptoms (acute) (chief complaint) Acute non-recurrent pansinusitis Apr- 2-201 7 Rosa Camargo. [address] [place], [place], [facility], [place]. tel:[phone] OFFICE/OUTPA TIENT VISIT, [facility], [address] [place] [address], [facility], [place] tel: [phone] [place] Cold symptoms (chief complaint) Acute bronchitis, unspecified Nov- 9 6 Longmeyer Larisa. [address] [place] [address]. tel:[phone] OFFICE/OUTPA TIENT VISIT, [facility], [address] [place] [address], [facility], tel: [phone] [place] Sinus symptoms (acute) (chief complaint) Acute maxillary sinusitis, unspecified Sep-2 6 6 Longmeyer Larisa. [address] [place] [address]. tel:[phone] OFFICE/OUTPA TIENT VISIT, [facility], [address] [place] [address], [facility], tel: [phone] [place] Sinus symptoms (acute) (chief complaint) Acute recurrent maxillary sinusitis Jaguar- 2201 6 No Information OFFICE/OUTPA TIENT VISIT, [facility], [address] [place] [address], [facility], [place] tel: [phone] [place] Sinus symptoms (acute) (chief complaint) Acute maxillary sinusitis, unspecified June-201 6 Laron Abbasi. [address] [place] [address], [facility], [place]. tel:[phone] OFFICE/OUTPA TIENT VISIT, [facility], [address] [place] [address], [facility], [place] tel: [phone] [place] UTI (chief complaint)S inus symptoms (acute) (chief complaint) Acute frontal sinusitis, unspecifiedAc [place] maxillary sinusitis, unspecifiedUr inary tract infection, site not specified 6 Pinky Peres. [address] [place] [address], [place]. tel:[phone] OFFICE/OUTPA TIENT VISIT, [facility], [address] [place] [address], [facility], tel: [phone] [place] UTI (chief complaint) Urinary frequencyDysu marge 6 Jay Milagro. [address] [place] [address], [facility], [place]. tel:[phone] OFFICE/OUTPA TIENT VISIT, [facility], [address] [place] [address], [facility], [place] tel:+ [phone] [place] Sinus symptoms (acute) (chief complaint) Acute sinusitis, unspecified 5 Laron Abbasi. [address] [place] [address], [facility], [place]. tel:[phone] OFFICE/OUTPA TIENT VISIT, [facility], [address] [place] [address], [facility], [place] tel: [phone] [place] Sore throat (chief complaint) Sinusitis, Acute 5 Justyn Lam. [address] [place] [address], [facility], . tel:[phone] OFFICE/OUTPA TIENT VISIT, [facility], [address] [place] [address], [facility], [place] tel:[phone] [place] Sore throat (chief complaint) Sinusitis, Acute 5 Laron Abbasi. [address] [place], [place], [facility], [place]. tel:[phone] OFFICE/OUTPA TIENT VISIT, [facility], [address] [place] [address], [facility], [place] tel:[phone] [place] UTI (chief complaint) UTI (urinary tract infection) 4 No Information OFFICE/OUTPA TIENT VISIT, [facility], [address] [place] [address], [address] [place] [address] tel:[phone] [place] Sinus symptoms (acute) (chief complaint) Acute maxillary sinusitis Dec 0 4 No Information OFFICE/OUTPA TIENT VISIT, [facility], [address] [place] [address] tel: [phone] [place] Sinus symptoms (acute) (chief complaint) Cough Sep- 0 4 No Information OFFICE/OUTPA TIENT VISIT, [facility], [address] [place] [address], [address] [place] [address] tel: [phone] [place] Sinus symptoms (acute) (chief complaint) Sinusitis, Acute Sep-0 5 4 No Information OFFICE/OUTPA TIENT VISIT, [facility], [address] [place] [address], [address] [place] [address] tel: [phone] [place] sinus symptoms (acute) (chief complaint) Allergic rhinitisSinus itis 4 Jay Milagro. [address] [place] [address], [address] [place] [address]. tel:[phone] OFFICE/OUTPA TIENT VISIT, [facility], [address] [place] [address], [facility], tel:[phone] [place] dizzy (chief complaint) Meniere disorder 2 4 Pinky Peres. [address] [place] [address]. tel: [phone] OFFICE/OUTPA TIENT VISIT, [facility], [address] [place] [address], [facility], tel:[phone] [place] sinus symptoms (acute) (chief complaint) Acute frontal sinusitisAcut e maxillary sinusitis 4 Longmeyer Larisa. [address] [place] [address]. tel:[phone] [facility], [address] [place] [address], [facility], tel:[phone] [place] bladder infection (chief complaint) UTI (urinary tract infection) 3 Shira Matt. [address] [place] [address], [facility], . [phone] OFFICE/OUTPA TIENT VISIT, [facility], [address] [place] [address], [facility], tel:[phone] [place] UTI (chief complaint) Sinusitis, Acute 3 No Information OFFICE/OUTPA TIENT VISIT, [facility], [address] [place] [address], [facility], tel:[phone] [place] sinus symptoms (acute) (chief complaint) Recurrent acute sinusitis 3 No Information [facility], [address] [place] [address], [facility], tel:[phone] [facility] No Information 2 No Information Family History Family Member Type Diagnosis Age At Onset Father Problem (finding) stroke Payers Payer name Insurance type Covered libertarian ID Sherlyn melendezbossman(s) Medicare CI [id number] Social History Type Description Quantity Date Captured [...] Of Treatment Date Type Action Status Goal Zoster vaccine. Due on due Goal [...] Influenza vaccine. Due on Oc due Goal Depression scree felisa. Due on due Goal Td vaccine. Due on due Goal Tdap. Due on due Goal Pneumococcal vac cine. Due on due Goal Zoster vaccine. Due on due Goal DEXA scan. Due on due Goal Tdap. Due on due Goal Influenza vaccine. Due on Oc -2022 due Goal Zoster vaccine. Due on due [...] Influenza vaccine. Due on Ap due Goal Td vaccine. Due on due [...] 0 due Goal Influenza vaccine. Due on due [...] DEXA scan. Due on 0 due Goal Pneumococcal vac cine. Due on [...] 9 due Goal Td vaccine. Due on 19 [...] on due Goal Influenza vaccine. Due on No due Goal Depression scree felisa. Due on [...] Goal Zoster vaccine. Due on due Goal Zoster vaccine. [...] 9 due Goal Td vaccine. Due on 19 [...] Td vaccine. Due on 18 due Goal Zoster vaccine. Due on due [...] due Goal Influenza vaccine. Due on due Referral Ordered: X-RAY EXAM CHEST 1 VIEW ordered Referral Ordered: referred to Mental Health Counselor (related to Depression) ordered Referral Ordered: MRI BRAIN W/O & W/DYE Appointment date/timeframe: 02/05/2019 ordered Referral Ordered: CT ABD & PELVIS W/CONTRAST ordered Referral Referred To: Tricia Sharif [address] [place] [address], [phone] Ordered: Referrals: Allopathic & Osteopathic Physicians : [...] Order: Lab Order CBC W/ D iff ([id number]), Sent on: Sent Future Order: Lab Order BMP ([id number]), Se nt on: Sent Future Order: Lab Order URINALYS IS WITH REFLEX CULTURE ([id number]), Sent on: Sent Future Order: Lab Order URINALYS IS WITH REFLEX CULTURE ([id number]), Ordered on: Ordered Future Order: Lab Order CBC W/ D iff ([id number]), Ordered on: Ordered Future Order: Lab Order CMP ([id number]), Or dered on: Ordered Future Order: Lab Order LIPID PA SAM (), Ordered on: Ordered Future Order: Lab Order TSH ([id number]), Or dered on: Ordered Future Order: Lab Order URINALYS IS WITH REFLEX CULTURE ([id number]), Collected on: Ordered Future Order: Lab Order URINE CU LTURE ([id number]), Sent on: Sent Future Order: Lab Order URINALYS IS WITH REFLEX CULTURE ([id number]), Ordered on: Ordered Future Order: Lab Order [...] tract infections. She sees a urologist in [place]. She offers no other concerns or complaints [...] had it filled at [facility] in [place] or [facility] in [place]. She offers no other concerns or complaints at this time. UTI (comments) Ilsa is a 81- year old female who presents to the clinic today with urinary complaints. Symptom onset was 11/14/2021. She complains of chills, body aches, nausea, urinary frequency and urgency. She has a history of UTIs, interstitial cystitis and she sees a urologist in [place], [place]. She offers no other concerns or [...] interstitial cystitis and sees a urologist in [place], [place]. She complains of urinary frequency, pressure. [...] chills, fever, nasal congestion and sinus pressure. hpi (Ilsa Ambroserod presents to the clinic with complaints of right side thoracic back pain for a couple of weeks. She presented to the ER at 3 am this morning for the same complaint, diagnosed with musculoskeletal back pain and UTI. She is treated with Augmentin by her PCP Dr. Wolfe in [place], [place] and sees a urologist for management of complicated urinary tract infections. She states that she was told that she could only be given 1 [place] 5 pill while in there and that they could not give her anything else for pain at discharge. She plans on following-up with her PCP within 5 days, so we discussed the option of [place] 5 day course. She has contraindications such as: hypertension and history of pulmonary embolism. Finally, the patient's PHQ9 is 7 today, indicating mild depression. She rates her pain 6-7 out of 10 day.) BACK PAIN Onset: 1 day ago . [...] it could be scar tissue, or arthritis. Sinus symptoms (acute) Onset: 2 Days. The [...] states that she sees Dr. Pierre in [place] for treatment of a bladder ulcer and [...] been staying home except for going to [facility] and wore a mask while there. BLOOD [...] ORAL HYDROCORTISONE REPLACEMENT THERAPYRECENTLY ADMITTED TO [facility] FOR GASTROENTERITIS-WHICH HAS IMPROVEDNO LOOSE STOOLS X [...] she declined at that time. FOLLOW UP (comments) SEEN FOR HEMATURIA-WHICH HAS IMPROVEDPT IS ON ELIQUISNO DYSURIA OR FEVER FOLLOW UP PT PRESENTS FOR FOLLOW UP FROM RECENT ILLNESS. UTI (comments) Patient states s he woke [...] INSUFFICIENCY DUE TO RECENT STEROID USEADMITTED [facility] [place] [facility] FOR BILAT PULM EMBOLI-STARTED ON [...] remove 12/01/18. She has a urologist with [place]. She denies fever, but states she has [...] having any swelling in her extremities. COUGH Severity: 9. The patient describes the cough as hacking, moist, productive (of yellow sputum) and lung cancer in 2007 in remission. It occurs persistently. The problem has not changed. Context: allergies and smoke exposure. Symptoms are aggravated by allergens. Relieving factors include Augmentin did help but not the cough. Associated symptoms include cough, fatigue, fever, hoarseness, nasal congestion, night sweats, post-nasal drainage, sinus pressure, sore throat, wheezing and earache and temp of 102.0. Additional information: Patient has history of pneumonia. COUGH (comments) The patient was put on [...] and is very bothersome to her. Nothing xyvc-rto-naqjhdr seems to be working. The Tessalon Perles do not seem to be working. She has not had fever for at least 3 days may be 4. Cold symptoms (comments) NO URIN MENG SYMPTOMSHAS URI/SINUS CONGESTION/HMBO-HQISU-GRIFTXLUST-YELLOWI SHNO PLEURITIC PAIN Cold symptoms Onset: 4 [...] every now and then from her vagina. Comments PT states that s he is scheduled to have surgery on July 03, 2018. PT states that she is having an ulcer removed from her bladder. PT states that her doctor is Dr. Berta Carreno. UTI (comments) NO FEVERNO FLANK PAIN Comments (comments) PT HAS BEEN DEPRESSED W/O SUICIDAL IDEATION-STARTED ON PAXIL- LAST WEEKPT THINKS SHE IS DEPRESSED DUE TO HER RECURRENT UTIREFUSED ANXIOLYTIC DEPRESSION The patient repo rts functioning as [...] July 03 for bladder cyst. ER F/U PT PRESENTS FOR ER F/U. PT WAS SEEN IN ER FOR N/V/D AND LOOSE STOOLS. PT STATES SHE STILL FEELS THAT SHE HAS A UTI ER F/U (comments) HX OF RECURREN T UTI- KEFLEX WAS CHANGED TO AUGMENTIN LAST WEEKHAD BLOOD TESTSPT IS DEPRESSED ABOUT THE RECURRENT INF AND POSTPONED UROLOGY PROCEDURENOT SUICIDAL UTI The severity of the problem is [...] 10/28/17, no results yet. PRE OP PHYS (comments) PMH : [facility] er on bladder, lung cancer 2007, C-diffPSH: bladder repair 1991, sinusplasty 1985, D&C 1970's, lung resection 2007, clusters right lung, clusters" on bladderTobacco: noneETOH: noneIllicit: noneFunctional status: can climb a flight of stairs. Bleeding issues: None Personal/Family reaction to anesthesia: Hard to wake up from anesthesia PRE OP PHYS Pt presents for a pre op physical. Pt will be having a cysto, bladder bx on 10/28/[address] Carreno. Pt is needing order for EKG. Pt is currently on Macrobid for UTI prescribed by Dr Carreno last week. uti. Pt presents to shefali johnson her constant UTI pain. Pt states she has IC and see Dr Eckert. Dr Eckert referred to a physician in [place] who specializes in IC. Pt states she [...] TO DIP DUE TO AZO COLOR. UTI (comments) The patient has been here [...] needs further treatment for her chronic IC. UTI Onset: 4 Days. T he severity [...] She states that Augmentin helps her best. EST CARE PT PRESENTS TO Linda CHOU [...] HAS HELPED HER-REQUESTS REFILL OF FLONASE/AUGMENTIN SINUS (comments) PT also states urinary sx. PT states hx of chronic recurrent UTIs. Pt states burning with urination. SINUS PT COMPLAINS OF SINUS SX X 3 DAYS THAT SEEM TO BE GETTING WORSE UTI Onset: 2 Weeks. The severity of [...] sore throat or tooth pain. UTI Onset: 1 Week. T he severity [...] HX of IC, last therapy was 05/2015. UTI Onset: 2 Days. P resenting/Initial symptoms [...] Increase your Hydrocortisone as directed by your smelter liner. Finish all antibiotics as prescribed. Related to Bronchitis Increase fluids. Dutch id known triggers. Mucinex DM may help. Related to Bronchitis Patient instructed o n use of Flonase or Nasacort. Related to Acute sinusitis, unspecified Educated on use of antibiotic Re lated to Acute sinusitis, unspecified RTC for symptoms korin t persist or worsen Related to Acute sinusitis, unspecified Increase fluids Related to Acute sinusitis, unspecified OTC sinus medications as discuss ed Related to Acute sinusitis, unspecified Observe for medication side effe cts Related to Acute sinusitis, unspecified Cool mist humidifier to bedroom at night Related to Acute sinusitis, unspecified Take all [...] nasal/sinus rinses with saline. Consider use of plic-oim-tpqjnsq mucolytic such as guaifenesin. Maintain adequate clear [...] warm compresses to sinus area(s). May use dvfw-hpt-zizcuhm cough suppressant such as dextromethorphan. Related to [...] LOWER DOSE Related to Upper respiratory infection Supportive measures- PO fluids, rest, acetaminophen for fever Related to Upper respiratory infection Good hand hygiene Related to Upp er respiratory infection Observe for signs or symptoms of emergency and seek immediate care for such Related to Weakness Educated that antibi otics are not prescribed for viral infections. Related to Upper respiratory infection Rest, Proper nutrition and activ ity. Related to Weakness 25 K OF MORGANELLA M ORGANIIMULT RESISTANCE SEE REPORT Related to Urinary tract infection, site not specified FINISH ANTIBIOTICS- DIRECTED R elated to Urinary tract infection, site not specified FOLLOWUP WITH UROLOGIST SCHED ULED. Related to Urinary tract infection, site not specified DO NOT MISS YOUR HYD ROCORTISONE DOSE UNLESS DIRECTED BY THE EQUITIES ANALYST Related to Adrenal insufficiency FOLLOWUP WITH DR [...] ibed. Related to Acute recurrent maxillary sinusitis Mucinex DM + Sudafed for sinus relief, mucous, and cough Related to Acute recurrent maxillary sinusitis Increase fluids. Rest. Related t o Acute recurrent maxillary sinusitis Instructions given f or sinus irrigation. Related to Acute recurrent maxillary sinusitis Labs overall unremar kable. Mild elevation in monocytes. F/U as discussed. Related to Malaise Follow up with PCP o n 11/06/18. Return sooner if worsening. Related to Malaise Make sure you are dr inking plenty of fluids Related to Malaise Low salt diet. Obser ve for worsening symptoms-ADD HCTZ TO CURRENT MEDS Related to Bilateral edema of lower extremity Elevate legs as much as possible Related to Bilateral edema of lower extremity Consider compression stockings/s ocks Related to Bilateral edema of lower extremity Observe for persiste nt or worsening s/s Related to Dermatitis Avoid skin irritants -SRATCHES OR CONTUSIONS Related to Dermatitis APPLY-NEOSPORIN topically Relate d to Dermatitis S/P DOXYCYCLINE FOR SINUSITIS-SYMTOMATICALLY IMPROVED Related to Follow-up exam after treatment Stop taking Augmenti n. Begin taking Doxycycline [...] nasal/sinus rinses with saline. Consider use of bvxl-ibs-owweycw mucolytic such as guaifenesin. Maintain adequate clear [...] Urinary tract infection, site not specified Increase activity. Related to HT N CONTINUE ALL MEDS Related to HTN Follow a low sodium diet. Relate d to HTN Instructions given f or sinus irrigation. Related to Acute maxillary sinusitis, unspecified Patient instructed o n use of saline sprays. Related to Acute maxillary sinusitis, unspecified Avoid exposure to to bacco smoke and/or polluted air. Consider nasal/sinus rinses with saline. Consider use of pcyi-ifr-lhbsxar mucolytic such as guaifenesin. Maintain adequate clear fluid intake. Maintain adequate rest. May use warm compresses to sinus area(s). The patient verbalized an understanding of all instructions. Related to Acute sinusitis, unspecified Continue allergy tab let and nasal spray Related to Acute sinusitis, unspecified Tylenol or Ibuprofen for fever o r pain Related to Acute sinusitis, unspecified Mucinex for cough re lief, mucous, and congestion Related to Acute sinusitis, unspecified We have sent your ur ine to the lab for analysis. We will call you with results. Please begin treatment as discussed prior to hearing your results.DRINK PLENTY OF WATER. Increase fluid intake to eight 8-ounce glasses of water per day. Use iqse-qdg-pxwgfbs AZO for relief of painful urination. This [...] to Urinary tract infection, site not specified May proceed with surgery Related to Pre-operative general physical examination Low risk for cardiac complicatio ns Related to Pre-operative general physical examination cefdinir, [...] ALL MEDS DIRECTED Re lated to HTN Observe for medication side effe cts Related to Acute maxillary sinusitis, unspecified Continue with use of Flonase or Nasacort. Related to Acute maxillary sinusitis, unspecified Educated on use of antibiotic Re lated to Acute maxillary sinusitis, unspecified RTC for symptoms korin t persist or worsen Related to Acute maxillary sinusitis, unspecified OTC sinus medications as discuss ed Related to Acute maxillary sinusitis, unspecified USE [...] to Urinary tract infection, site not specified Proper hygiene, wipe front to ba ck Related to Urinary tract infection, site not specified Increase fluids Related to Urina ry tract infection, site not specified Finish all [...] f.u in not better. Related to Ac [place] recurrent maxillary sinusitis flonase, loraine, will do [...] discussed Related to Sinusitis, Acute F/u with hospice nurse practitioner Related to Si nusitis, Acute RTC if symtpoms persist or worse n Related to Sinusitis, Acute keflex, life style c hanges and f.u in one week if not better. Related to UTI (urinary tract infection) Instructions given f or sinus irrigation. Related to Acute maxillary sinusitis amoxicillin for 10 d ays and than f.u prn Related to Acute maxillary sinusitis Patient instructed o n use of saline sprays. Related to Acute maxillary sinusitis pt did [...] x 10d Rel ated to Sinusitis, Acute Patient instructed o n use of saline sprays. Related to Recurrent acute sinusitis augmentin and prednisone Related to Recurrent acute sinusitis Instructions given f or sinus irrigation. Related to Recurrent acute sinusitis Referral to ENT for frequent sin usitis Related to Recurrent acute sinusitis return if not better in 3-5 days, sooner if worse Related to Recurrent acute sinusitis Assessments Type Assessment Date assessment Dysuria assessment Acute cystitis with hematuria Mental Status Date Cognitive Assessment Orientation - Fork ed to time, place, person, situation.Normal Orientation Patient Care Teams Name Effective Dates (start - stop) Status Members No Information
--- OUTSIDE RECORDS SUMMARY | 2024-03-30 00:34 | XMS_ITS | Clinical Summary ---
Author Organization [facility] Address [address] [place] [address] Care Team Providers Care Coldfusion Name Role Phone Kelli Cunha MD Unavailable [phone] Josué Berry MD Primary Care Provider [phone] Segundo Paige MD Unavailable [phone] Allergies Active Allergy Reactions Criticality Noted Date Comments Ciprofloxacin Myalgias Medium 07/22/2015 Sulfa Antibiotics Unknown,Rash Low 03/17/2016 Reaction: Rash, Sulfanilamide Rash Low Reaction: Rash, Medications [place]-3 Fat Ac-Cholecalciferol (SEA-OMEGA + D OR) Take [...] Problems Problem Noted Date Diagnosed Date Sepsis ([facility]) 03/07/2021 Severe sepsis ([facility]) 03/07/2021 COVID-19 03/22/2020 Atherosclerosis of [place] co ronary artery of [place] heart without angina pectoris 04/23/2017 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 04/23/2017 [place] (obstructive sleep apnea) 04/02/2017 Hypertension, essential 02/14/2016 History of lung cancer 02/14/2016 Resolved Problems Problem Noted Date Diagnosed Date Resolved Date Preoperative cardiovascular examination 10/08/2018 11/02/2019 Family History Medical History Relation Comments CHF Brother 1 Heart Attack Brother 1 Stroke Father [place] Mother Stroke Paternal Grandfather Relation Status Comments [...] Comments Blood Pressure 162/68 03/11/2021 7:36 AM LOG LOADER informed RN Jeni Pulse 79 03/11/2021 7:36 AM LOG LOADER Temperature 36.4 C (97.5 F) 03/11/2021 7:36 AM LOG LOADER Respiratory Rate 18 03/09/2021 4:48 AM LOG LOADER Oxygen Saturation 96% 03/11/2021 2:0 0 PM LOG LOADER Inhaled Oxygen Concentration - - Weight 84.4 kg (186 lb 1.1 oz) 03/09/2021 5:00 AM LOG LOADER Height 157.5 cm (5' 2 ) 03/07/2021 10:5 5 AM LOG LOADER Body Mass Index 34.03 03/07/2021 10:55 AM LOG LOADER Plan of Treatment Health Maintenance Due Date [...] Associated Problems Recent Progress Patient-Stated? Author Discharge Patient/family verbalizes understanding regarding the need for SNF placement General Edna Carreno, hat binder - family caregiver with be involved in care transitions and discharge planning Edna Dos Santos patient support representative Procedure Name Priority Date/Time Associated Diagnosis Comments [...] Most Recently Relevant to Health Maintenance Insurance [facility] [place] MEDICARE [facility] Advance Directives Documents on File Type Date Recorded Patient Distribution Transformer Assembler Expl anation Advance Directives and Living Will 03/09/2021 9:56 AM 03/07/2021 SURROGATE DECISION MAKER MD FLOREZ. * Full Code (Latest Code Status on File) Date Activated Date Inactivated Comments 03/07/2021 11:18 AM 03/11/2021 5:59 PM Care Teams Coldfusion Relationship Specialty Start Date End Date Josué Berry MD [address] [place] [phone] PCP - General FAMILY PRACTICE 04/14/20 Kelli Cunha MD [address] [place] [phone] [place] [facility] Transcriptionist CARDIOVASCULAR DISEASE 04/06/17 Segundo Paige MD [address] [place] [address] Consulting Physician HEMATOLOGY/ONCOLOGY 05/20/20
--- OUTSIDE RECORDS SUMMARY | 2024-03-30 00:34 | XMS_ITS | Encounter Summary ---
Author Organization [facility] Address [address] [place] [address] Care Team Providers Care Shipping Weigher Name Role Phone Josué Berry MD Primary Care Provider + Encounter Details Date Type Department Care Team (Late st Contact Info) Description 05/12/[address] [address] Kristen Sepulveda RN Social History Tobacco Use Types Packs/Day Years Used Date Smoking Tobacco: Never Smokeless Tobacco: Never Alcohol Use Standard Drinks/Week Comments No 0 (1 standard drink = 0.6 oz pur e alcohol) PHQ-2 Answer Date Recorded PHQ-2 Score 2 05/11/2019 Comments No Sex and Gender Information Value Date Recorded Sex Assigned at Not on file Legal Sex Female 1:47 AM DATA TECHNICIAN Gender Identity Not on file Sexual Orientation [...] COVID: Suspected 01/06/2020 01/06/2020 01/06/2020 3:51 PM DATA TECHNICIAN COVID19 Comment:Positive test results noted at [facility] performed 01/01/20 per [facility]. 01/06/2020 01/06/2020 01/25/2020 3:[address] documented as of this encounter Care Teams Shipping Weigher Relationship Specialty Start Date End Date Josué Berry MD [address] [place] [id number] PCP - General 05/10/19 documented as of this encounter
--- OUTSIDE RECORDS SUMMARY | 2024-03-30 00:34 | XMS_ITS | Referral Summary ---
Author Organization [facility] Address [address] [place] [address] Care Team Providers Care Claims Representative Name Role Phone Josué Berry MD Primary [...] 01/06/2020 Assessment & Plan (01/06/2020 10:26 PM PETROLOGIST): Multiple family members are positive. Patient's is in the hospital in [place]. She is requiring oxygen. Will start patient on Decadron and remdesivir. Patient is not sure she wants a transfusion and wants to think about convalescent plasma. Printout of information for convalescent plasma was given to patient. Continue supportive care. Adrenal insufficiency 01/06/2020 Assessment & Plan (03/22/2022 1:51 PM PETROLOGIST): Diagnosed around 2017 Used to see Histologist Technologist in [place], [place] Patient is clinically stable Labs on [...] CDT): Diagnosed around 2017 Used to see Histologist Technologist in [place], [place] Patient is clinically stable Labs on 06/26/20 Sodium 140 Potassium 4.0 with normal kidney functions Plan: Continue same dose of Hydrocortisone Obtain copy of records from previous Histologist Technologist Check labs this week Patient is wearing medical alert tag Reviewed with patient the sick day protocol for steroids, and need to go to ER if having vomiting and not able to keep medications down. Patient understands and agrees with above plan. Assessment & Plan (01/06/2020 10:18 PM PETROLOGIST): Currently showing no signs of adrenal insufficiency. Will continue to monitor however if patient becomes hypotensive will switch Decadron to stress dose Solu-Cortef. History of pulmonary embolism 01/06/2020 Assessment & Plan (01/06/2020 10:19 PM PETROLOGIST): Patient is on Coumadin with a slightly supratherapeutic INR. Coumadin has been resumed with pharmacy to dose. Pre-diabetes 01/06/2020 Assessment & Plan (01/06/2020 10:18 PM PETROLOGIST): Patient takes metformin at home. Will be starting Decadron. Will order NPH with Decadron and monitor on a mid dose sliding scale. Acute hypoxemic respiratory failure 01/06/2020 Assessment & Plan (01/06/2020 10:20 PM PETROLOGIST): Patient does not use oxygen at home. She presented with an SpO2 86% on room air. She is requiring supplemental oxygen via nasal cannula, 2 L. continue to monitor on continuous pulse ox. Adjust oxygen as needed. Recurrent major depressive disorder 05/18/2019 Assessment & Plan (01/06/2020 10:21 PM PETROLOGIST): Continue home medications Anxiety 05/11/2019 UTI (urinary tract infection) 05/11/2019 Chronic interstitial cystitis 07/20/2016 Overview (07/23/2016): Interstitial cystitis Hypertension 07/05/2012 Overview (05/27/2016): Hypertension Assessment & Plan (03/22/2022 1:52 PM PETROLOGIST): Controlled with medication - continue medication per PCP - instructed family to make sure to have f/u with PCP for evaluation and management of pain after a fall. Assessment & Plan (09/05/2020 2:25 PM CDT): Controlled with medication - low salt diet - continue medication per PCP Assessment & Plan (01/06/2020 10:17 PM PETROLOGIST): Pressure is slightly elevated. Home medications have been resumed with hold parameters. Continue monitor. Gastroesophageal reflux disease 07/05/2012 Overview (05/27/2016): GERD (gastroesophageal reflux disease) Hyperlipidemia 07/05/2012 Overview (05/27/2016): Hyperlipemia Assessment & Plan (01/06/2020 10:18 PM PETROLOGIST): Continue statin Personal history of primary malignant neoplasm o f lung 07/05/2012 Overview (05/28/2016): History of lung cancer Cystitis 07/05/2012 Overview (05/28/2016): Cystitis Anticoagulant adverse reaction, initial encounte r Sepsis without acute organ dysfunction Dehydration Confusion and disorientation Resolved Problems Problem Noted Date Diagnosed Date Resolved Date Hypokalemia 01/06/2020 01/09/2020 Assessment & Plan (01/06/2020 10:21 PM PETROLOGIST): Likely secondary to vomiting and diarrhea. Patient [...] on file Legal Sex Female 1:47 AM PETROLOGIST Gender Identity Not on file Sexual Orientation Not on file Last Filed Vital Signs Vital Sign Reading Time Taken Comments Blood Pressure 132/78 03/22/2022 1:01 PM PETROLOGIST Pulse 68 01/11/2020 6:00 PM PETROLOGIST Temperature 35.9 C (96.7 F) 01/11/2020 3:15 PM PETROLOGIST Respiratory Rate 18 01/11/2020 3:15 PM PETROLOGIST Oxygen Saturation 93% 01/11/2020 6:00 PM PETROLOGIST Inhaled Oxygen Concentration - - Weight 75 kg (165 lb 6.4 oz) 03/22/2022 1:01 PM PETROLOGIST Height 162.6 cm (5' 4 ) 03/22/2022 1:01 PM PETROLOGIST Body Mass Index 28.39 03/22/2022 1:01 PM PETROLOGIST Plan of Treatment Not on file Insurance COMMERCIAL GENERIC MEDICARE RAILROAD MEDICARE RAILROAD COMMERCIAL GENERIC MEDICARE RAILROAD COMMERCIAL GENERIC MEDICARE RAILROAD Advance Directives For more information, please contact: [phone] * LIMITED - No CPR (Latest Code [...] 4:32 AM 05/11/2019 4:22 PM Care Teams Claims Representative Relationship Specialty Start Date End Date Josué Berry MD [address] [place] [id number] PCP - General 05/10/19
--- OUTSIDE RECORDS SUMMARY | 2024-03-30 00:34 | XMS_ITS | Encounter Summary ---
Author Organization [facility] Address [address] [facility] [place] [address] Phone Care Team Providers Care Hadoop Software Engineer Name Role Phone Provider, None Primary Care Provider Unavailabl e Encounter Details Date Type Department Care Team (Late st Contact Info) Description 03/30/2019 Lab Requisition [facility] [address] [place] [address] Jann Mccormick MD [address] [place], [place] [id number] Social History Tobacco Use Types Packs/Day Years [...] Comments CULTURE, BLOOD Routine 03/30/2019 10:30 PM BOMB TECHNICIAN documented in this encounter Results * CULTURE, BLOOD (03/30/2019 10:30 PM BOMB TECHNICIAN) CULTURE RESULTS NO GROWTH WITHIN 5 DAYS, FINAL RESULT 04/05/2019 2:02 PM BOMB TECHNICIAN [facility] Culture of specimen by commercial kit (procedure) BLOOD SPECIMEN / Unknown No Phlebotomy Charged / Unknown 03/30/2019 10:30 PM BOMB TECHNICIAN 03/31/2019 1:12 PM BOMB TECHNICIAN us Jann Mccormick MD MICROBIOLOGY - GENERAL ORDER VIDYA Final Result [facility] [address] [place] [address], [place] documented in this encounter Visit Diagnoses Not on filedocumented in this encounter Care Teams Hadoop Software Engineer Relationship Specialty Start Date End Date Provider, None [place] PCP - General 04/29/21 documented as of this encounter
--- OUTSIDE RECORDS SUMMARY | 2024-03-30 00:34 | XMS_ITS | Encounter Summary ---
Author Organization [facility] Address [address] [place] [address] Care Team Providers Care Security Risk Analyst Name Role Phone Jimenez Rhodes MD Primary Care Provider [phone] Kelli Cunha MD Unavailable [phone] Josué Berry MD Primary Care Provider [phone] Segundo Paige MD Unavailable [phone] Encounter Details Date Type Department Care Team (Late st Contact Info) Description 04/24/2019 Abstract [facility] [address] [place] [address] Abstract, Doc Pre[facility] Social History Tobacco Use [...] Rule Out 03/11/2021 03/11/2021 03/11/2021 3:01 PM ENGINE TESTING SUPERVISOR documented as of this encounter Care Teams Security Risk Analyst Relationship Specialty Start Date End Date Jimenez Rhodes MD [address] [place] [id number] PCP - General EMERGENCY MEDICINE 04/06/17 04/13/20 Josué Berry MD [address] [place] [address] PCP - General FAMILY PRACTICE 04/14/20 Kelli Cunha MD [address] [place] [address] Tamiment Carbonizer CARDIOVASCULAR DISEASE 04/06/17 Segundo Paige MD [address] [place] [phone] Consulting Physician HEMATOLOGY/ONCOLOGY 05/20/20 documented as of this encounter
--- NOTE | 2024-03-30 07:16 | WPDHPUPDATE1 ---
History and Physical Update Update Date/Time: 03/30/24 07:16 History and Physical has been reviewed, including an updated exam of the patient. There are NO changes in the patient's condition. Risks, benefits, and alternatives have been discussed and questions answered. Patient agrees to proceed with procedure.
[2024-03-30 07:30] LABS: Glucose Point of Care 134 mg/dl (65-105)
[2024-03-30 07:48] VITALS: BP 155/72; PULSE 98; TEMP 36.5; O2SAT 97; BMI 29.7
[2024-03-30] MEDS: LACTATED RINGERS 1,000 ML 30 ML IV CONT (07:50)
[2024-03-30] MEDS: ceFAZolin 2 GM/D5W 50 ML 2 GM/50 ML BAG IVPB (09:01)
[2024-03-30] MEDS: TRIAMCINOLONE ACET INJ 40 MG/ML VIAL 200 MG XX (09:15)
[2024-03-30] MEDS: LIDOCAINE 2% GEL UROJET 10 ML PKG MUCOUS MEM (09:21)
[2024-03-30 09:30] VITALS: BP 120/48; PULSE 93; RESP 14; O2SAT 93
--- NOTE | 2024-03-30 09:33 | P.OP_ITS ---
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 Informed consent obtained. She is from the operating room. She was given monitored anesthesia care. She was placed in dorsal lithotomy position. She was prepped and draped sterile fashion. Time- out performed. I performed cystoscopy. The bladder was examined. There was no tumors or stones. There was areas of redness and Hunner's ulceration on the left lateral wall and posterior wall. Both these areas were remote from the ureteral orifice. I biopsied the area in the left lateral wall. I fulgurated all lesions. I then injected Kenalog. I injected 40 milligrams/mL. 5 cc total. I fulgurated the biopsy site as well as injection sites once again. There was no bleeding under low insufflation pressures. She was awakened transferred to PACU in stable condition. Estimated Blood Loss 2 Pathology Yes ( Bladder biopsy) Complications No immediate complications Condition Stable Disposition PACU
[2024-03-30 09:39] LABS: Glucose Point of Care 127 mg/dl (65-105)
[2024-03-30 09:55] VITALS: BP 156/66; PULSE 89; RESP 14; O2SAT 93
[2024-03-30 10:25] VITALS: BP 161/78; PULSE 88; RESP 14
== END 2024-03-30 10:35 | disposition home or self-care (01) ==
PROVIDERS: PCP Family Medicine; Visit Provider Urology
PROC: 0TBB8ZX Excision of Bladder, Via Natural or Artificial Opening Endoscopic, Diagnostic (ICD-10-PCS; CPT 52204; principal; 2024-03-30 09:00)
DX: N30.10 Interstitial cystitis (chronic) without hematuria (principal); I10 Essential (primary) hypertension; E78.5 Hyperlipidemia, unspecified; G47.33 Obstructive sleep apnea (adult) (pediatric); K21.9 Gastro-esophageal reflux disease without esophagitis; E27.40 Unspecified adrenocortical insufficiency; Z79.84 Long term (current) use of oral hypoglycemic drugs; Z79.01 Long term (current) use of anticoagulants; Z79.52 Long term (current) use of systemic steroids
CPT/HCPCS: 52204; 52283; 82948; 88305; J0690; J2003; J2704; J3301; J7120

== ENCOUNTER 2024-09-28 01:43 | Day surgery (SDC) | payer MEDICARE, MEDICAID, SELFPAY ==
[2024-09-20 11:25] VITALS: BMI 29.7
[2024-09-20 12:44] VITALS: BMI 32.4
--- NOTE | 2024-09-20 13:03 | PC.NURSE ---
Report to the Outpatient Waiting Room, entrance under the green pavilion located off [facility], at time __10 am on date _09/28/24 . Planned Procedure Time: __1200 noon .? Time changes happen often and if your time is changed the preop area will call you the afternoon before. - You and your visitor will be asked to self-screen and do not enter if you have any COVID symptoms. Please call surgeon if you need to reschedule. - A mask is optional within the hospital at this time. Patients may have clear liquids (water, carbonated beverages, clear teas, apple juice) until 3 hours prior to surgery ( 9 am ) with a maximum of 20 ounces. - No food from midnight until time of surgery and no smoking, or chewing tobacco (or any form of nicotine). No chewing gum, candy or mints. Take only the following medications with a SIP of water on the morning of surgery: _INHALER IF NEEDED,AMLODIPINE,CITALOPRAM,DULOXETINE DO NOT STOP ANY OF YOUR OTHER PRESCRIPTION MEDICATIONS PRIOR TO SURGERY EXCEPT THE FOLLOWING Hold all vitamins and supplements for 3 days per anesthesiologist.LAST DOSE 09/24/24 Medications to discontinue per physician ___ELIQUIS HOLD 2 DAYS PRE OP PER DR CARRENO (PER SON) LAST DOSE 09/25/24 Date to take last dose Please no make-up, nail malay, hairspray, perfume, deodorant, or body powder the day of surgery.? No jewelry (including any body piercings) or valuables the day of surgery, leave them at home.? Please take a shower or bath the night before, or the morning of, surgery with an antibacterial soap.? Wear comfortable, loose fitting clothing.? Children are encouraged to wear pajamas. - Jewelry must be removed prior to entering the operating room.? Rings and piercings that are not removed may be cut off. - The hospital will not accept responsibility for valuables.? - Please leave all valuables, including medications, at home the day of surgery. If you are going home after surgery, a licensed team cdl driver must drive you home.? - NO public transportation without another adult if you receive anesthesia. - We recommend that an adult stay with you for 24 hours following discharge. - We also recommend that you do not drive, make important decision, drink alcoholic beverages, or take any drugs that were not prescribed by your health care provider for at least 24 hours after your discharge time. For Pediatric surgeries, we recommend two adults accompany the child home. Follow any additional instructions given to you from your surgeon. Telephone instructions given to __RAMÍREZ MAHARAJ AND FAXED TO [facility]: [facility] and asked if any additional questions and then verbalized understanding. Patient advised to call surgeon office or pre surgery nurse liaison [phone] if any additional questions.
--- NOTE | 2024-09-23 08:54 | P.HP_ITS ---
H&P: HPI History of Present Illness Date/Time: 09/23/24 08:54 Chief Complaint: Hunner Ulcer Narrative: in need of repeat steroid injection Review of Systems Review of Systems: All systems reviewed & are unremarkable except as noted in HPI and below PMFSH Past Medical History Medical History Adrenal insufficiency Chronic steroid use GERD (gastroesophageal reflux disease) Anticoagulant long-term use Pulmonary embolism ARDEN (obstructive sleep apnea) History of lung cancer Hyperlipidemia Hypertension Surgical History Surgical History History of lobectomy of lung right middle lobe Social History Social History Smoking status: Never smoker Second hand tobacco smoke exposure: No Alcohol intake: never Substance use: never Substance use type: does not use Living arrangements: detention Additional living arrangements comments: [facility] Gender identity (if verbalized by the patient): Female Spiritual care concerns: No Meds Home Medications and Allergies Home Medications ?Medication ?Instructions ?Recorded ?Confirmed ?Type fluticasone propionate 50 2 spray intranasal HS 03/20/19 09/20/24 History mcg/actuation nasal spray,suspension (Flonase Allergy Relief) hydrocortisone 10 mg tablet 10 mg PO BID 03/20/19 09/20/24 History omeprazole 40 mg capsule,delayed 20 mg PO DAILY 03/20/19 09/20/24 History release simvastatin 20 mg tablet 20 mg PO HS 03/20/19 09/20/24 History fexofenadine 180 mg tablet 180 mg PO DAILY Congestion 09/19/19 09/20/24 History (Loraine Allergy) metformin 500 mg tablet 500 mg PO BID 05/27/20 09/20/24 History methenamine-sod ant-salicyl 162 1 tablet PO QID PRN Bladder Spasms 05/27/20 09/20/24 History mg-97 mg-65 mg tablet apixaban 2.5 mg tablet (Eliquis) 2.5 mg PO BID 10/07/21 09/20/24 History lisinopril 10 mg tablet 10 mg PO QAM 10/07/21 09/20/24 History acetaminophen 325 mg tablet 325 mg PO BID PRN Pain 08/26/22 09/20/24 History citalopram 10 mg tablet 20 mg PO DAILY 08/26/22 09/20/24 History cranberry fruit 450 mg tablet 450 mg PO DAILY 08/26/22 09/20/24 History (cranberry) lactobacillus combo #5 150 mg (2 150 mg PO DAILY 08/26/22 09/20/24 History billion cell) tablet,delayed release loperamide 2 mg capsule 2 mg PO Q6H PRN Loose Stool 08/26/22 09/20/24 History ondansetron HCl 4 mg tablet 4 mg PO PRN PRN Nausea 08/26/22 09/20/24 History phenazopyridine 200 mg tablet 200 mg PO TID PRN pain 6 doses #30 09/03/22 09/20/24 Rx (Pyridium) tabs acetaminophen 500 mg tablet 500 mg PO BID PAIN 03/17/23 09/20/24 History amlodipine 10 mg tablet 10 mg PO DAILY 03/17/23 09/20/24 History ascorbic acid 1,000 1 ea PO DAILY 03/17/23 09/20/24 History fz-ncaynnxwmhhr-ibzozpkm powder effervescent pack (Emergen-C) diphenhydramine HCl 25 mg capsule 25 mg PO Q6H PRN Congestion 03/17/23 09/20/24 History duloxetine 30 mg capsule,delayed 30 mg PO DAILY 03/17/23 09/20/24 History release furosemide 20 mg tablet 20 mg PO DAILY 03/17/23 09/20/24 History guaifenesin 100 mg/5 mL oral liquid 100 mg PO Q6H PRN Cough 03/17/23 09/20/24 History tramadol 50 mg tablet 50 mg PO BID pain 03/17/23 09/20/24 History albuterol sulfate 90 mcg/actuation 2 inh inhalation Q4-6H PRN 09/20/24 09/20/24 History breath activated powder inhaler shortness of breath alprazolam 0.25 mg tablet 0.25 mg PO BID 09/20/24 09/20/24 History benzonatate 200 mg capsule 200 mg PO BID PRN cough 09/20/24 09/20/24 History budesonide-formoterol HFA 160 2 puff inhalation DAILY 09/20/24 09/20/24 History mcg-4.5 mcg/actuation aerosol inhaler calcium carbonate (Calcium 500) 1,000 mg PO HS 09/20/24 09/20/24 History hydrocodone 5 mg-acetaminophen 325 1 tablet PO .EVERY 6 HOURS PRN pain 09/20/24 09/20/24 History mg tablet meclizine 25 mg tablet 25 mg PO QID PRN dizziness 09/20/24 09/20/24 History Allergies Allergy/AdvReac Type Severity Reaction Status Date / Time sulfamethoxazole Allergy Unknown HIVES Verified 09/20/24 11:24 trimethoprim Allergy Unknown HIVES Verified 09/20/24 11:24 buspirone AdvReac BODY ACHES Verified 09/20/24 11:24 cariprazine (From Vraylar) AdvReac Unknown Verified 09/20/24 11:24 ciprofloxacin AdvReac BODY ACHES Verified 09/20/24 11:24 sertraline AdvReac VERTIGO Verified 09/20/24 11:24 Exam Narrative: NAD A+O x3 Assessment and Plan Assessment and plan (1) Hunner's ulcer: Code(s): N30.10 - Interstitial cystitis (chronic) without hematuria Status: Acute Assessment and Plan: cystoscopy/bladder biopsy/steroid injection
--- OUTSIDE RECORDS SUMMARY | 2024-09-28 02:09 | XMS_ITS | Clinical Summary ---
Author Organization [facility] Address [address] [place] [address] Care Team Providers Care Tank Erector Name Role Phone Provider, None Primary Care [...] Health Maintenance Due Date Last Done Comments Hepatitis C Virus (HCV) Screening 1940 TdaP Immunization 1940 Zoster Immunization (1 of 2) 1988 Respiratory Syncytial Virus (RSV) Immunization (Adult) (1 - 1-dose 75+ series) 2013 Pneumococcal Immunization (50+ years) (2 of 2 - PCV) 09/22/2019 09/21/2018, 11/21/2008 SARS-COV-2 Immunization ( - 2023- season) 2023 Influenza Immunization (#1) 10/22/202412/22, 12/03/2019, 11/16/2018, Additional history exists Pneumococcal Immunization Combined Discontinued 09/21/2018, 11/21/2008 Hepatitis B Immunization Aged Out No longer eligible based on patient's age to complete this topic Human Papillomavirus (HPV) Immunization Aged Out No longer eligible based on patient's age to complete this topic Meningococcal Immunization (ACWY) Aged Out No longer eligible based on patient's age to complete this topic Rotavirus Immunization Aged Out No lo nger eligible based on patient's age to complete this topic Insurance [employer] COMMERCIAL GENERIC on file MEDICARE RAILROAD Care Teams Tank Erector Relationship Specialty Start Date End Date Provider, None [place] PCP - General 04/29/21
--- OUTSIDE RECORDS SUMMARY | 2024-09-28 02:09 | XMS_ITS | Encounter Summary ---
Author Organization [facility] Address [facility] [place] [address] Care Team Providers Care Clinical Provider Trainer Name Role Phone Jimenez Rhodes MD Primary Care Provider [phone] Kelli Cunha MD Unavailable [phone] Josué Berry MD Primary Care Provider [phone] Segundo Paige MD Unavailable [phone] Encounter Details Date Type Department Care Team (Late st Contact Info) Description 04/24/2019 Abstract [facility] [address] [place] [id number] Abstract, Doc Pre[facility]a Social History Tobacco Use [...] Rule Out 03/11/2021 03/11/2021 03/11/2021 3:01 PM NET SOFTWARE DEVELOPER documented as of this encounter Care Teams Clinical Provider Trainer Relationship Specialty Start Date End Date Jimenez Rhodes MD [address] [place] [phone] PCP - General EMERGENCY MEDICINE 04/06/17 04/13/20 Josué Berry MD [address] [place] [phone] PCP - General FAMILY PRACTICE 04/14/20 Kelli Cunha MD [address] [place] [phone] [place] Fish [employer] Game Warden CARDIOVASCULAR DISEASE 04/06/17 Segundo Paige MD [address] [place] [address] Consulting Physician HEMATOLOGY/ONCOLOGY 05/20/20 documented as of this encounter
--- OUTSIDE RECORDS SUMMARY | 2024-09-28 02:09 | XMS_ITS | Clinical Summary ---
Author Organization [facility] Address [address] [place] [address] Care Team Providers Care Transportation Lead Name Role Phone Kelli Cunha MD Unavailable [phone] Josué Berry MD Primary Care Provider [phone] Segundo Paige MD Unavailable [phone] Allergies Active Allergy Reactions Criticality Noted Date Comments Ciprofloxacin Myalgias Medium 07/22/2015 Sulfa Antibiotics Unknown,Rash Low 03/17/2016 Reaction: Rash, Sulfanilamide Rash Low Reaction: Rash, Medications Toponas-3 Fat Ac-Cholecalciferol (SEA-OMEGA + D OR) Take [...] Problems Problem Noted Date Diagnosed Date Sepsis ([facility]) 03/07/2021 Severe sepsis ([facility]) 03/07/2021 COVID-19 03/22/2020 Atherosclerosis of [place] ronary artery of [place] heart without angina pectoris 04/23/2017 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 04/23/2017 ARDEN (obstructive sleep apnea) 04/02/2017 Hypertension, essential 02/14/2016 History of lung cancer 02/14/2016 Resolved Problems Problem Noted Date Diagnosed Date Resolved Date Preoperative cardiovascular examination 10/08/2018 11/02/2019 Family History Medical History Relation Comments CHF Brother 1 Heart Attack Brother 1 Stroke Father [place] Mother Stroke Paternal Grandfather Relation Status Comments [...] Comments Blood Pressure 162/68 03/11/2021 7:36 AM INSURANCE ADVISOR informed RN Jeni Pulse 79 03/11/2021 7:36 AM INSURANCE ADVISOR Temperature 36.4 C (97.5 F) 03/11/2021 7:36 AM INSURANCE ADVISOR Respiratory Rate 18 03/09/2021 4:48 AM INSURANCE ADVISOR Oxygen Saturation 96% 03/11/2021 2:0 0 PM INSURANCE ADVISOR Inhaled Oxygen Concentration - - Weight 84.4 kg (186 lb 1.1 oz) 03/09/2021 5:00 AM INSURANCE ADVISOR Height 157.5 cm (5' 2) 03/07/2021 10:5 5 AM INSURANCE ADVISOR Body Mass Index 34.03 03/07/2021 10:55 AM INSURANCE ADVISOR Plan of Treatment Health Maintenance Due Date Last Done Comments ASCVD Statin 1940 DTaP, Tdap and Td Vaccines (1 - Tdap) 1957 Zoster Vaccines (1 of 2) 1988 Annual Medicare Wellness Visit 09/08/2003 RSV Immunization or 60+ Years (1 - 1-dose 75+ series) 2013 ASCVD LDL 05/13/2019 05/12/2018, 03/24, 03/03/2016, Additional history exists Pneumococcal Vaccine: 50+ Years (2 of 2 - PCV) 09/22/2019 09/21/2018, 11/21/2008 COVID-19 Vaccine ( - season) 2023 Meningococcal B Vaccine Aged Out No l [...] need for SNF placement General Edna Carreno, bioinformatics support specialist - family caregiver with be involved in care transitions and discharge planning Edna Dos Santos field sales manager Procedure Name Priority Date/Time Associated Diagnosis Comments [...] Most Recently Relevant to Health Maintenance [place] [address] [place] [address] [facility] Advance Directives Documents on File Type Date Recorded Patient Seed Cleaning Machine Operator Expl anation Advance Directives and Living Will 03/09/2021 9:56 AM 03/07/2021 SURROGATE DECISION MAKER MD FLOREZ. * Full Code (Latest Code Status on File) Date Activated Date Inactivated Comments 03/07/2021 11:18 AM 03/11/2021 5:59 PM Care Teams Transportation Lead Relationship Specialty Start Date End Date Josué Berry MD [address] [place] [phone] PCP - General FAMILY PRACTICE 04/14/20 Kelli Cunha MD [address] [place] [phone] [place] Senior Underwriting Assistant CARDIOVASCULAR DISEASE 04/06/17 Segundo Paige MD [address] [place], [place] [phone] Consulting Physician HEMATOLOGY/ONCOLOGY 05/20/20
--- OUTSIDE RECORDS SUMMARY | 2024-09-28 02:09 | XMS_ITS | Clinical Summary ---
Author Organization [facility] Address [address] [place] [address] Care Team Providers Care Knot Cutter Name Role Phone Josué Berry MD Primary [...] 01/06/2020 Assessment & Plan (01/06/2020 10:26 PM LEAD BI DEVELOPER): Multiple family members are positive. Patient's is in the hospital in [place]. She is requiring oxygen. Will start patient on Decadron and remdesivir. Patient is not sure she wants a transfusion and wants to think about convalescent plasma. Printout of information for convalescent plasma was given to patient. Continue supportive care. Adrenal insufficiency 01/06/2020 Assessment & Plan (03/22/2022 1:51 PM LEAD BI DEVELOPER): Diagnosed around 2017 Used to see Faculty Physician in [place], [place] Patient is clinically stable Labs on [...] CDT): Diagnosed around 2017 Used to see Faculty [facility] in [place], [place] Patient is clinically stable Labs on 06/26/20 Sodium 140 Potassium 4.0 with normal kidney functions Plan: Continue same dose of Hydrocortisone Obtain copy of records from previous Faculty Physician Check labs this week Patient is wearing medical alert tag Reviewed with patient the sick day protocol for steroids, and need to go to ER if having vomiting and not able to keep medications down. Patient understands and agrees with above plan. Assessment & Plan (01/06/2020 10:18 PM LEAD BI DEVELOPER): Currently showing no signs of adrenal insufficiency. Will continue to monitor however if patient becomes hypotensive will switch Decadron to stress dose Solu-Cortef. History of pulmonary embolism 01/06/2020 Assessment & Plan (01/06/2020 10:19 PM LEAD BI DEVELOPER): Patient is on Coumadin with a slightly supratherapeutic INR. Coumadin has been resumed with pharmacy to dose. Pre-diabetes 01/06/2020 Assessment & Plan (01/06/2020 10:18 PM LEAD BI DEVELOPER): Patient takes metformin at home. Will be starting Decadron. Will order NPH with Decadron and monitor on a mid dose sliding scale. Acute hypoxemic respiratory failure 01/06/2020 Assessment & Plan (01/06/2020 10:20 PM LEAD BI DEVELOPER): Patient does not use oxygen at home. She presented with an SpO2 86% on room air. She is requiring supplemental oxygen via nasal cannula, 2 L. continue to monitor on continuous pulse ox. Adjust oxygen as needed. Recurrent major depressive disorder 05/18/2019 Assessment & Plan (01/06/2020 10:21 PM LEAD BI DEVELOPER): Continue home medications Anxiety 05/11/2019 UTI (urinary tract infection) 05/11/2019 Chronic interstitial cystitis 07/20/2016 Overview (07/23/2016): Interstitial cystitis Hypertension 07/05/2012 Overview (05/27/2016): Hypertension Assessment & Plan (03/22/2022 1:52 PM LEAD BI DEVELOPER): Controlled with medication - continue medication per PCP - instructed family to make sure to have f/u with PCP for evaluation and management of pain after a fall. Assessment & Plan (09/05/2020 2:25 PM CDT): Controlled with medication - low salt diet - continue medication per PCP Assessment & Plan (01/06/2020 10:17 PM LEAD BI DEVELOPER): Pressure is slightly elevated. Home medications have been resumed with hold parameters. Continue monitor. Gastroesophageal reflux disease 07/05/2012 Overview (05/27/2016): GERD (gastroesophageal reflux disease) Hyperlipidemia 07/05/2012 Overview (05/27/2016): Hyperlipemia Assessment & Plan (01/06/2020 10:18 PM LEAD BI DEVELOPER): Continue statin Personal history of primary malignant neoplasm o f lung 07/05/2012 Overview (05/28/2016): History of lung cancer Cystitis 07/05/2012 Overview (05/28/2016): Cystitis Anticoagulant adverse reaction, initial encounte r Sepsis without acute organ dysfunction Dehydration Confusion and disorientation Resolved Problems Problem Noted Date Diagnosed Date Resolved Date Hypokalemia 01/06/2020 01/09/2020 Assessment & Plan (01/06/2020 10:21 PM LEAD BI DEVELOPER): Likely secondary to vomiting and diarrhea. Patient received replacement. Will repeat potassium level. Will also check a Mag. Replete as needed. Immunizations Immunization Administration Dates Next Due H1N1 All Forms [...] Medical History Date Comments Cancer of lung 2007 Cancer, lung Hx Other Medical 1979 jose l zaidi [...] on file Legal Sex Female 1:47 AM LEAD BI DEVELOPER Gender Identity Not on file Sexual Orientation [...] Comments Blood Pressure 132/78 03/22/2022 1:01 PM LEAD BI DEVELOPER Pulse 68 01/11/2020 6:00 PM LEAD BI DEVELOPER Temperature 35.9 C (96.7 F) 01/11/2020 3:15 PM LEAD BI DEVELOPER Respiratory Rate 18 01/11/2020 3:15 PM LEAD BI DEVELOPER Oxygen Saturation 93% 01/11/2020 6:00 PM LEAD BI DEVELOPER Inhaled Oxygen Concentration - - Weight 75 kg (165 lb 6.4 oz) 03/22/2022 1:01 PM LEAD BI DEVELOPER Height 162.6 cm (5' 4) 03/22/2022 1:01 PM LEAD BI DEVELOPER Body Mass Index 28.39 03/22/2022 1:01 PM LEAD BI DEVELOPER Plan of Treatment Health Maintenance Due Date Last Done Comments Osteoporosis Screening-Bone Density Scan 1940 DTaP/Tdap/Td Vaccine (1 - Tdap) 1949 Hepatitis B Screening 1956 Zoster Vaccine (1 of 2) 1988 Well Visit 65+ 09/08/2003 Pneumococcal vaccine 65+ (2 of 2 - PCV) 09/22/2019 09/21/2018, 11/21/2008 Depression Screening 01/05/2021 01/06/2020, 05/10/19 20 Fall Risk Assessment 01/10/2021 01/11/2020 Influenza Vaccine (#1) 2024 0, 11/16/2018, 08/02/2018, Additional history exists Insurance COMMERCIAL GENERIC MEDICARE [employer] MEDICARE RAILROAD COMMERCIAL GENERIC MEDICARE RAILROAD COMMERCIAL GENERIC MEDICARE RAILROAD Advance Directives For more information, please contact: [phone] * LIMITED - No CPR (Latest Code [...] 4:32 AM 05/11/2019 4:22 PM Care Teams Knot Cutter Relationship Specialty Start Date End Date Josué Berry MD [address] [place] [address] PCP - General 05/10/19
--- OUTSIDE RECORDS SUMMARY | 2024-09-28 02:09 | XMS_ITS | Encounter Summary ---
Author Organization [facility] Healthcare Address [address] [place] [address] Care Team Providers Care Shuffle Board Operator Name Role Phone Josué Berry MD Primary Care Provider + Encounter Details Date Type Department Care Team (Late st Contact Info) Description 05/12/[address] [address] Kristen Sepulveda RN Social History Tobacco Use Types Packs/Day Years Used Date Smoking Tobacco: Never Smokeless Tobacco: Never Alcohol Use Standard Drinks/Week Comments No 0 (1 standard drink = 0.6 oz pur e alcohol) PHQ-2 Answer Date Recorded PHQ-2 Score 2 05/11/2019 Comments No Sex and Gender Information Value Date Recorded Sex Assigned at Not on file Legal Sex Female 1:47 AM BRIDGE REPAIRER Gender Identity Not on file Sexual Orientation [...] COVID: Suspected 01/06/2020 01/06/2020 01/06/2020 3:51 PM BRIDGE REPAIRER COVID19 Comment:Positive test results noted at [facility] performed 01/01/20 per [facility]. 01/06/2020 01/06/2020 01/25/2020 3:[address] documented as of this encounter Care Teams Shuffle Board Operator Relationship Specialty Start Date End Date Josué Berry MD [address] [place] [id number] PCP - General 05/10/19 documented as of this encounter
--- OUTSIDE RECORDS SUMMARY | 2024-09-28 02:09 | XMS_ITS | Encounter Summary ---
Author Organization [facility] Address [facility] [place] [address] Care Team Providers Care Presentation Specialist Name Role Phone Jimenez Rhodes MD Primary Care Provider [phone] Kelli Cunha MD Unavailable [phone] Josué Berry MD Primary Care Provider [phone] Segundo Paige MD Unavailable [phone] Encounter Details Date Type Department Care Team (Late st Contact Info) Description 04/30/2015 Abstract [facility] AT [address] [phone] Kelli Cunha MD [address] [place] [address] Social History Tobacco Use Types [...] Rule Out 03/11/2021 03/11/2021 03/11/2021 3:01 PM SATELLITE TECHNICIAN documented as of this encounter Care Teams Presentation Specialist Relationship Specialty Start Date End Date Jimenez Rhodes MD [address] [place] [id number] PCP - General EMERGENCY MEDICINE 04/06/17 04/13/20 Josué Berry MD [address] [place] [phone] PCP - General FAMILY PRACTICE 04/14/20 Kelli Cunha MD [address] [place] [phone] [place] Machinist Instructor CARDIOVASCULAR DISEASE 04/06/17 Segundo Paige MD [address] [place] [address] Consulting Physician HEMATOLOGY/ONCOLOGY 05/20/20 documented as of this encounter
--- NOTE | 2024-09-28 07:15 | WPDHPUPDATE1 ---
History and Physical Update Update Date/Time: 09/28/24 07:15 History and Physical has been reviewed, including an updated exam of the patient. There are NO changes in the patient's condition. Risks, benefits, and alternatives have been discussed and questions answered. Patient agrees to proceed with procedure.
--- NOTE | 2024-09-28 07:20 | WPDANESEPPF ---
Anes - Initial Pre Proc Eval Procedure: Operation Date: 09/28/24 09:45 Proposed Procedures p Cystoscopy, Bladder Biopsy with Steroid Injection - John Delarosa MD Date/Time: 09/28/24 07:20 Surgeon: John Delarosa MD Pre Op Diagnosis: Hunters' ulcers Patient Data Age: 84 Gender: F Height: 1.63 m Weight: 85.75 kg Allergies Allergy/AdvReac Type Severity Reaction Status Date / Time sulfamethoxazole Allergy Unknown HIVES Verified 09/20/24 11:24 trimethoprim Allergy Unknown HIVES Verified 09/20/24 11:24 buspirone AdvReac BODY ACHES Verified 09/20/24 11:24 cariprazine (From Vraylar) AdvReac Unknown Verified 09/20/24 11:24 ciprofloxacin AdvReac BODY ACHES Verified 09/20/24 11:24 sertraline AdvReac VERTIGO Verified 09/20/24 11:24 Home Medications ?Medication ?Instructions ?Recorded ?Confirmed ?Type fluticasone propionate 50 2 spray intranasal HS 03/20/19 09/20/24 History mcg/actuation nasal spray,suspension (Flonase Allergy Relief) hydrocortisone 10 mg tablet 10 mg PO BID 03/20/19 09/20/24 History omeprazole 40 mg capsule,delayed 20 mg PO DAILY 03/20/19 09/20/24 History release simvastatin 20 mg tablet 20 mg PO HS 03/20/19 09/20/24 History fexofenadine 180 mg tablet 180 mg PO DAILY Congestion 09/19/19 09/20/24 History (Loraine Allergy) metformin 500 mg tablet 500 mg PO BID 05/27/20 09/20/24 History methenamine-sod ant-salicyl 162 1 tablet PO QID PRN Bladder Spasms 05/27/20 09/20/24 History mg-97 mg-65 mg tablet apixaban 2.5 mg tablet (Eliquis) 2.5 mg PO BID 10/07/21 09/20/24 History lisinopril 10 mg tablet 10 mg PO QAM 10/07/21 09/20/24 History acetaminophen 325 mg tablet 325 mg PO BID PRN Pain 08/26/22 09/20/24 History citalopram 10 mg tablet 20 mg PO DAILY 08/26/22 09/20/24 History cranberry fruit 450 mg tablet 450 mg PO DAILY 08/26/22 09/20/24 History (cranberry) lactobacillus combo #5 150 mg (2 150 mg PO DAILY 08/26/22 09/20/24 History billion cell) tablet,delayed release loperamide 2 mg capsule 2 mg PO Q6H PRN Loose Stool 08/26/22 09/20/24 History ondansetron HCl 4 mg tablet 4 mg PO PRN PRN Nausea 08/26/22 09/20/24 History phenazopyridine 200 mg tablet 200 mg PO TID PRN pain 6 doses #30 09/03/22 09/20/24 Rx (Pyridium) tabs acetaminophen 500 mg tablet 500 mg PO BID PAIN 03/17/23 09/20/24 History amlodipine 10 mg tablet 10 mg PO DAILY 03/17/23 09/20/24 History ascorbic acid 1,000 1 ea PO DAILY 03/17/23 09/20/24 History fw-cjwgnzcmgkxc-uzojpobg powder effervescent pack (Emergen-C) diphenhydramine HCl 25 mg capsule 25 mg PO Q6H PRN Congestion 03/17/23 09/20/24 History duloxetine 30 mg capsule,delayed 30 mg PO DAILY 03/17/23 09/20/24 History release furosemide 20 mg tablet 20 mg PO DAILY 03/17/23 09/20/24 History guaifenesin 100 mg/5 mL oral liquid 100 mg PO Q6H PRN Cough 03/17/23 09/20/24 History tramadol 50 mg tablet 50 mg PO BID pain 03/17/23 09/20/24 History albuterol sulfate 90 mcg/actuation 2 inh inhalation Q4-6H PRN 09/20/24 09/20/24 History breath activated powder inhaler shortness of breath alprazolam 0.25 mg tablet 0.25 mg PO BID 09/20/24 09/20/24 History benzonatate 200 mg capsule 200 mg PO BID PRN cough 09/20/24 09/20/24 History budesonide-formoterol HFA 160 2 puff inhalation DAILY 09/20/24 09/20/24 History mcg-4.5 mcg/actuation aerosol inhaler calcium carbonate (Calcium 500) 1,000 mg PO HS 09/20/24 09/20/24 History hydrocodone 5 mg-acetaminophen 325 1 tablet PO .EVERY 6 HOURS PRN pain 09/20/24 09/20/24 History mg tablet meclizine 25 mg tablet 25 mg PO QID PRN dizziness 09/20/24 09/20/24 History Patient hx anesthesia problems: none Family hx anesthesia problems: none Results Review: All pre-operative results and documents have been reviewed as part of the pre-operative evaluation. [facility] Past Medical History Medical History Adrenal insufficiency Chronic steroid use GERD (gastroesophageal reflux disease) Anticoagulant long-term use Pulmonary embolism ARDEN (obstructive sleep apnea) History of lung cancer Hyperlipidemia Hypertension Surgical History Surgical History History of lobectomy of lung right middle lobe Social History Social History Smoking status: Never smoker Second hand tobacco smoke exposure: No Alcohol intake: never Substance use: never Substance use type: does not use Living arrangements: long-term Additional living arrangements comments: [facility] Gender identity (if verbalized by the patient): Female Spiritual care concerns: No Anes - Eval Final PreProcedure Day of Procedure 09/28/24 07:20 Patient weight: obese Heart: regular rate and rhythm Lungs: clear to auscultation Airway: Mallampati scale class II Neurological: alert and oriented Last oral intake: >/= 8 hours ASA classification: III Emergent: no Anesthetic plan: proceed Anesthesia type and monitoring: general GIVS and standard monitoring Results Review: All pre-operative results and documents have been reviewed as part of the pre-operative evaluation. Informed Consent: The patient's anesthetic plan and its attendant risks and benefits were discussed with the patient/family/POA. Questions were solicited and answers provided to the satisfaction of the patient/family/POA.
[2024-09-28 09:30] VITALS: BP 168/83; PULSE 102; RESP 16; TEMP 36.1; O2SAT 92
[2024-09-28] MEDS: ceFAZolin 2 GM in SODIUM CHLORIDE 0.9% IV 50 ML 100 ML IVPB (09:50)
[2024-09-28] MEDS: LACTATED RINGERS 1,000 ML 30 ML IV CONT (10:00)
--- NOTE | 2024-09-28 10:07 | S_PTH ---
PATIENT: Ilsa Pearl LOC: [facility] U#:[id number] AGE/SX: 84/F ROOM: RE09/28/[address]: John Delarosa MD : 1940 BED: DIS: 09/28/2024 SPEC #: [id number] RECD: 09/28/24 10:22 STATUS: MARILU REBetsy #: [id number] SALLY: 09/28/24 10:[address]: John Delarosa DEPT: [facility] Surgical RECD BY: Mustapha Mccray ENTERED: 09/28/24 10:23 SP TYPE: Surgical OTHR DR: Alhaji Henriquez, Tissues: A - Bladder Biopsy Procedures: Hematoxylin and Eosin Stain Gross and Microscopic Level 4
[2024-09-28] MEDS: TRIAMCINOLONE ACET INJ 40 MG/ML VIAL 200 MG IM (10:10)
[2024-09-28] MEDS: LIDOCAINE 2% GEL UROJET 10 ML PKG MUCOUS MEM (10:15)
[2024-09-28 10:17] VITALS: BP 141/60; PULSE 94; RESP 18; O2SAT 95
--- NOTE | 2024-09-28 10:19 | P.OP_ITS ---
Procedure Note - Detailed Date of Procedure 09/28/24 Pre-op Diagnosis Hunters' ulcers Post-op Diagnosis Same Procedure Performed Cystoscopy, bladder biopsy, steroid injection Surgeon John Delarosa MD Anesthesia MAC and Local (Uro jet) Indications Recurrent Hunner's ulcers Findings Hunner's ulcer back wall of bladder. Biopsied and treated with steroids Description of Procedure She was correctly identified. Informed consent obtained. From the operating room. She was given monitored anesthesia care. She was placed in dorsal lithotomy position. She was prepped draped sterile fashion. Time-out performe d. Cystoscopy revealed a area of redness and inflammation on the back wall of her bladder. Away from the ureteral orifice. No other bladder abnormalities. I biopsied this area. I then injected Kenalog 40 milligrams/mL 5 cc total. I injected this into the ulcerated area. I fulgurated the lesion. There was no active bleeding. Her bladder was drained. She was awakened transferred to PACU in stable condition. Estimated Blood Loss 1 Drains No Packing No Pathology Yes (Bladder biopsy) Complications No immediate complications Condition Stable Disposition PACU
[2024-09-28 10:40] VITALS: BP 142/50; PULSE 93; RESP 18; O2SAT 95
[2024-09-28 11:04] VITALS: BP 152/68; PULSE 96; RESP 18
[2024-09-28 11:23] VITALS: BP 142/60; PULSE 93; RESP 18
== END 2024-09-28 11:35 | disposition home or self-care (01) ==
PROVIDERS: PCP Family Medicine; Visit Provider Urology
PROC: 0TBB8ZX Excision of Bladder, Via Natural or Artificial Opening Endoscopic, Diagnostic (ICD-10-PCS; CPT 52204; principal; 2024-09-28 09:45)
DX: N30.10 Interstitial cystitis (chronic) without hematuria (principal); E78.5 Hyperlipidemia, unspecified; I10 Essential (primary) hypertension; K21.9 Gastro-esophageal reflux disease without esophagitis; G47.33 Obstructive sleep apnea (adult) (pediatric); E27.40 Unspecified adrenocortical insufficiency; E66.9 Obesity, unspecified; Z68.32 Body mass index [BMI] 32.0-32.9, adult; Z79.01 Long term (current) use of anticoagulants; Z79.84 Long term (current) use of oral hypoglycemic drugs; Z79.891 Long term (current) use of opiate analgesic; Z79.52 Long term (current) use of systemic steroids; Z79.51 Long term (current) use of inhaled steroids; Z90.2 Acquired absence of lung [part of]; Z86.711 Personal history of pulmonary embolism; Z85.118 Personal history of other malignant neoplasm of bronchus and lung
CPT/HCPCS: 52204; 52283; 88305; J0690; J2003; J2704; J3301; J7120